=== PATIENT | female | born 1950 | race African-American/Black ===

== ENCOUNTER 2019-05-28 16:52 | Inpatient (IN) | payer OTHER ==
--- NOTE | 2019-05-28 18:14 | PDOC ---
History of Present Illness - General Chief Complaint: Wound Stated Complaint: SENT BY DOC Time Seen by Provider: 05/28/19 18:14 History Source: Patient Exam Limitations: No Limitations - History of Present Illness Initial Comments: 05/28/19 19:28 68yF w PMHx DM HTN CHF morbid obesity presenting w BLE wounds. Ongoing BLE wounds since September 2018, worsened in February. Currently has open wounds with purulent discharge on L medial lower leg. Been treating wounds w dressing changes, tylenol/ibuprofen for pain, last taken this morning. Recently completed levaquin course 2 weeks ago and started 20 lasix daily this week. Visited opal polisher yesterday, told to go to hospital for IV antibiotics. Able to ambulate with walker, normal sensation to tough. Denies fever, chest pain/ SOB. Past History - Past Medical History Allergies/Adverse Reactions: Allergies Allergy/AdvReac Type Severity Reaction Status Date / Time No Known Allergies Allergy Verified 05/28/19 17:45 - Psycho Social/Smoking Cessation Hx Smoking History: Never smoked Review of Systems - Review of Systems Constitutional: No: Chills, Fever HEENTM: No: Eye Pain, Recent change in vision, Nose Pain, Throat Pain Respiratory: No: Cough, Shortness of Breath Cardiac (ROS): No: Chest Pain, Palpitations, Syncope ABD/GI: No: Abdominal Distended, Constipated, Diarrhea, Nausea, Vomiting : No: Burning, Dysuria, Discharge, Flank Pain Musculoskeletal: No: Back Pain, Joint Pain Integumentary: Yes: Lesions (LLE). No: Bruising Neurological: No: Headache, Seizure, Tingling Psychiatric: No: Anxiety, Depression, Stressors Endocrine: No: Excessive Sweating, Flushing, Intolerance to Cold, Intolerance to Heat Hematologic/Lymphatic: No: Anemia, Blood Clots *Physical Exam - Vital Signs Last Vital Signs Temp Pulse Resp BP Pulse Ox 98.4 F 99 H 18 181/96 H 95 05/28/19 17:45 05/28/19 17:45 05/28/19 17:45 05/28/19 17:45 05/28/19 17:45 - Physical Exam General Appearance: Yes: Nourished, Appropriately Dressed, Mild Distress HEENT: positive: EOMI, JOVON, Normal Voice, Hearing Grossly Normal. negative: Scleral Icterus (R), Scleral Icterus (L), Nasal Congestion, Rhinorrhea Respiratory/Chest: positive: Lungs Clear, Normal Breath Sounds. negative: Chest Tender, Respiratory Distress, Crackles, Rales, Rhonchi, Stridor, Wheezing Cardiovascular: positive: Regular Rhythm, Regular Rate, S1, S2. negative: Edema , Murmur Vascular Pulses: Dorsalis-Pedis (R): 1+, Doralis-Pedis (L): 1+ Gastrointestinal/Abdominal: positive: Normal Bowel Sounds, Soft, Distended (w fluid wave). negative: Tender, Organomegaly, Guarding, Rebound Integumentary: positive: Swelling (+3 pitting to thighs leonides), Other (multiple large superificial draining ulcers LLE calf, tender/erythematous/warm, brown crusty thickened foul smelling dermis leonides feet up to knees) Neurologic: positive: Fully Oriented, Alert, Normal Response, Motor Strength 5/5 , Responsive. negative: Numbness, Sensory Deficit, Confused, Disoriented ED Treatment Course - LABORATORY CBC & Chemistry Diagram: 05/28/19 19:35 05/28/19 19:35 Medical Decision Making - Medical Decision Making 05/28/19 19:38 CXR pulm vascular congestion, no consolidation, cardiomegaly EKG sinus tachycardia, HR 103, QTc 458, no ST changes --- 68yF w PMHx DM HTN CHF morbid obesity presenting w 9mo BLE skin wounds Cellulitis 2/2 CHF exacerbation fluid overload (3+ BLE edema, elevated BNP 1000 , pulm congestion CXR) vs diabetes. Low concern for osteomyelitis (no bony involvement on L tib/fib XR) Given tylenol, vanc, zosyn, home 5 amlodipine for HTN (repeat 170/100). Placed on 2L NC for episode of O2sat low 90s Admit m/s hospitalist for cellulitis requiring IV antibiotics, CHF exacerbation , HTN Discharge - Discharge Information Problems reviewed: Yes Clinical Impression/Diagnosis: CHF (congestive heart failure) Qualifiers: Heart failure type: unspecified Heart failure chronicity: acute on chronic Qualified Code(s): I50.9 - Heart failure, unspecified HTN (hypertension) Qualifiers: Hypertension type: unspecified Qualified Code(s): I10 - Essential (primary) hypertension Cellulitis Qualifiers: Site of cellulitis: extremity Site of cellulitis of extremity: lower extremity Laterality: left Qualified Code(s): L03.116 - Cellulitis of left lower limb Condition: Improved - Follow up/Referral Referrals: Fish Ferrara MD [Primary Care Provider] - - Patient Discharge Instructions - Post Discharge Activity
[2019-05-28] MEDS ORDERED: VANCOMYCIN 1 GM in D5W (PRE-DOCKED) 1,000 MG/250 ML IVPB ONE (19:26)
[2019-05-28] MEDS ORDERED: PIPERACILLIN/TAZOB 4.5 GM 4.5 GM in DEXTROSE 5%-WATER 100 ML IVPB ONE (19:26)
[2019-05-28] MEDS ORDERED: ACETAMINOPHEN 1000 MG/100 ML VIAL (NON FORMULARY) IVPB ONE (19:26)
[2019-05-28 19:50] LABS: BASO % 0.3 % (0-2.0); EOS % 1.2 % (0-4.5); HEMATOCRIT 40.3 % (32.4-45.2); LYMPH % 17.7 % (8-40); MCH 28.2 pg (25.7-33.7); MCHC 32.2 g/dl (32.0-36.0); MEAN CELL VOLUME 87.7 fl (80-96); MEAN PLT VOLUME 9.4 fl (7.5-11.1); MONO % 6.5 % (3.8-10.2); NEUT % 74.3 % (42.8-82.8); PLATELET COUNT 191 K/MM3 (134-434); RDW 14.7 % (11.6-15.6); WHITE BLOOD COUNT 6.8 K/mm3 (4.0-10.0)
[2019-05-28] MEDS ORDERED: ACETAMINOPHEN INJECTION 100 ML IVPB ONE (19:50)
[2019-05-28] MEDS ORDERED: PIPERACILLIN/TAZOB 4.5 GM 4.5 GM/100 ML BAG IVPB ONE (19:50)
[2019-05-28] MEDS ORDERED: VANCOMYCIN 1 GRAM (PRE-DOCKED) 1,000 MG/250 ML BAG IVPB ONE (19:50)
[2019-05-28 20:01] LABS: INR 1.11 (0.83-1.09); PROTHROMBIN TIME (PATIENT) 13.1 SEC (9.7-13.0)
[2019-05-28 20:04] LABS: ACTIVATED PTT 37.1 SECONDS (25.2-36.5)
[2019-05-28 20:20] LABS: ALBUMIN 3.5 g/dl (3.4-5.0); BILIRUBIN,TOTAL 0.4 mg/dL (0.2-1); CALCIUM 9.1 mg/dL (8.5-10.1); CREATININE 0.9 mg/dL (0.55-1.3); N-TERMINAL BNP 1007.7 pg/ml (5-125); POTASSIUM 3.9 mmol/L (3.5-5.1); TOT PROT 7.3 g/dl (6.4-8.2)
--- NOTE | 2019-05-28 21:04 | PDOC ---
Documentation entered by Chilango Rogers SCRIBE, acting as scribe for Hiren Morgan MD. Hiren Morgan MD: This documentation has been prepared by the Ken gonzlaez Daniel, SCRIBE, under my direction and personally reviewed by me in its entirety. I confirm that the documentation accurately reflects all work, treatment, procedures, and medical decision making performed by me. Attending Attestation - Resident Resident Name: Serge Chin - ED Attending Attestation I have performed the following: I have examined & evaluated the patient, The case was reviewed & discussed with the resident, I agree w/resident's findings & plan, Exceptions are as noted - HPI HPI: 05/28/19 20:28 The patient is a 68 year old female with a past medical history of HTN, CHF, and morbid obesity here today for evaluation of bilateral lower extremity wounds. Patient states that her wounds started in 10/10 and worsened in 03/12. She reports that recently her left leg began to have purulent discharge and completed a 2 week course of levaquin. She reports going to her fish bin tender yesterday who instructed her to go to the ER for IV antibiotics. Patient denies headache, lightheadedness. Denies fever, chills. Denies chest pain, shortness of breath. Denies nausea, vomiting, diarrhea, abdominal pain. Allergies: NKA PCP: Fish Ferrara - Physicial Exam PE: 05/28/19 20:43 Vitals: Triage vital signs reviewed General Appearance: No acute distress, well nourished, well developed Head: Atraumatic Neck: Supple; No nuchal rigidity Chest Wall: Nontender Cardiac: Regular rate and rhythm, no murmurs, no rubs, no gallops Lungs: Clear to auscultation bilateral, good air movement bilaterally Abdomen: Soft, nondistended, normal bowel sounds, nontender to palpation Extremities: Full range of motion to all extremities, no cyanosis, clubbing, or edema Skin: +bilateral diabetic wounds on lower extremitites with 3+ pitting edema. + multiple draining ulcers on the posterior left calf with crusting lesions and foul smell. Psych: Normal mood, normal affect - Medical Decision Making 05/29/19 01:12 Patient sent in for admission for IV antibiotics for bilateral lower extremity cellulitis and diabetic wound ulcers Vancomycin and Zosyn ordered We will admit to medicine for further management.
--- NOTE | 2019-05-28 21:39 | PN ---
Teaching Attending Note Name of Resident: Sky Keyes ATTENDING PHYSICIAN STATEMENT I saw and evaluated the patient. I reviewed the resident's note and discussed the case with the resident. I agree with the resident's findings and plan as documented. SUBJECTIVE: Patient is a 68 year old woman with a PMH of HTN, CHF, and Morbid obesity here today for evaluation of bilateral lower extremity wounds. Patient states that her wounds started in 10/10 and worsened in 03/12. She reports that recently her left leg began to have purulent discharge and completed a 2 week course of Levaquin. She reports going to her double cut off saw operator yesterday who instructed her to go to the ER for IV antibiotics. Patient denies headache, lightheadedness. Denies fever, chills. Denies chest pain, shortness of breath. Denies nausea, vomiting, diarrhea, abdominal pain. No recent travel or sick contacts. Denies alcohol, tobacco or illicit drug use. OBJECTIVE: Alert and morbidly obese Vital Signs Period Temp Pulse Resp BP Sys/Espinal Pulse Ox Last 24 Hr 98.4 F 99-99 18-20 173-181/96-105 95-98 HEENT: No Jaundice, eye redness or discharge, PERRLA, EOMI. Normocephalic, atraumatic. External ears are normal and hearing is grossly intact. No nasal discharge. Neck: Supple, nontender. No palpable adenopathy or thyromegaly. No JVD Chest: Good effort. Clear to auscultation and percussion. Heart: Regular. No S3, rub or murmur Abdomen: Not distended, soft, possible ascites, nontender and no HSM. No rebound or guarding. Normal bowel sounds. Ext: Peripheral pulses intact. 3+ leg edema. Bilateral multiple lower extremity wounds with foul smelling drainage with areas of erythema and crusting lesions. Skin: Warm and dry. No petechiae, rash or ecchymosis. Neuro: Alert. Oriented x3. CN 2-12 grossly intact. Sensation grossly intact in all four extremities and DTR are symmetric. Psych: Appropriate mood and affect. Good insight. Abnormal Lab Results 05/28/19 05/28/19 19:35 19:35 PT with INR 13.10 H INR 1.11 H PTT (Actin FS) 37.1 H Carbon Dioxide 35 H Anion Gap 3 L Random Glucose 193 H Alkaline Phosphatase 127 H B-Natriuretic Peptide 1007.7 H Current Medications Generic Name Dose Route Start Last Admin Trade Name Andrea PRN Reason Stop Dose Admin Furosemide 40 mg 05/29/19 00:15 Lasix Injection - IVPUSH DAILY [facility] Heparin Sodium (Porcine) 5,000 unit 05/29/19 06:00 Heparin - SQ TID [facility] Insulin Aspart 1 vial 05/29/19 07:00 Novolog Vial Sliding Scale - SQ ACHS [facility] Protocol ASSESSMENT AND PLAN: 1. Infected leg ulcers and Cellulitis - Being treated with IV vancomycin and zosyn. Will provide daily wound care, elevate legs when supine, get abdominal sonogram and leg doppler. EKG shows sinus tachcardia, PACs and LAE. CXR shows cardiomegaly, elevated right hemidiaphragm, blunted left costophrenic angle and increased interstitial markings. Will treat with IV lasix, restrict dietary salt intake, get daily standing weight, ECHO and consult Cardiology, ID and Podiatry. Will check HbA1c, monitor glucose qid and implement sliding scale insulin coverage. Will continue comprehensive care for all of patients comorbid conditions. 2. Morbid obesity Counseled on the risks associated with morbid obesity. Will provide patient all the necessary assistance, counseling and positive reinforcement to facilitate weight loss. Consult transportation superintendent. 3. Uncontrolled hypertension - Ensure that BP is being measured with right- sized cuff. Restart suitable outpatient antihypertensive drugs when clinically appropriate. Revise regimen to ensure [id number] excellent BP control and primary substance abuse counselor patient on the injurious effects of uncontrolled hypertension. Nonpharmacologic measures to control hypertension like weight loss, salt restriction and exercise discussed. Importance of adherence to treatment regimen and attainment of normotension emphasized. 4. DVT prophylaxis - Lovenox 40 mg SQ q 12 5. Advance directives - Full code
[2019-05-28] MEDS ORDERED: amLODIPine BESYLATE 5 MG TABLET (FP) PO ONE (22:12)
[2019-05-28] MEDS ORDERED: amLODIPine BESYLATE 5 MG TABLET (FP) ONE (22:16)
[2019-05-29] MEDS: ACETAMINOPHEN 325 MG TABLET (FP) PO PRN ×4 (01:16→21:43)
[2019-05-29] MEDS: FUROSEMIDE 40 MG/4 ML INJECTABLE VIAL IVPUSH SCH ×2 (01:16→09:17)
--- NOTE | 2019-05-29 02:33 | HP ---
CHIEF COMPLAINT: lower extremity pain and swelling PCP: Dr. Ferrara HISTORY OF PRESENT ILLNESS: Alysha Wagner is a 68 year old female with a past medical history of diabetes, hypertension, CHF, morbid obesity who presents with bilateral lower extremity wounds. The patient states that one year prior she was seen at [facility] for symptoms of shortness of breath, leg swelling, and cough and was given a diagnosis of CHF. She states her leg swelling has gotten worse since that time and dramatically started to get worse since February. She states that she did not follow up with a physician until recently and was not taking medications regularly until several days prior when she saw Dr. Ferrara for the first time in a long period. The patient states that her wounds on her legs are not followed up regularly by a physician or generator operator straight bevel gear. She states that she has had a several month history of a dry cough, orthopnea, dyspnea on exertion, and worsening leg swelling and pain. She endorses leg burning, pain, and difficulty with ambulation. Additionally, she states that her abomen has increased in size over a "long period of time" and she recently had an ultrasound of the abdomen for which she was told she had "ascites". She denies chest pain, abdominal pain , nausea, vomiting, constipation, diarrhea, headaches, numbness, tingling, dizziness, lightheadedness, fevers, chills. ER course was notable for: (1) HTN SBP 170-180s, 2L NC 98% (2) BNP >100 (3) Tib/fib x-ray with no noted bone involvement of infection, CXR with poor inspiratory effort, no consildation noted (4) given Tylenol, Vanco, Zosyn, amlodipine Recent Travel: denies PAST MEDICAL HISTORY: as above PAST SURGICAL HISTORY: denies Social History: Smoking: denies every smoking Alcohol: denies Drugs: denies Former labor and delivery nurse. Allergies No Known Allergies Allergy (Verified 05/28/19 17:45) HOME MEDICATIONS: REVIEW OF SYSTEMS CONSTITUTIONAL: Absent: fever, chills, diaphoresis, generalized weakness, malaise, HEENT: Absent: rhinorrhea, nasal congestion, throat pain, throat swelling, difficulty swallowing, visual changes CARDIOVASCULAR: peripheral edema Absent: chest pain, syncope, palpitations, irregular heart rate, lightheadedness RESPIRATORY: shortness of breath, dyspnea with exertion, orthopnea, cough Absent: wheezing, GASTROINTESTINAL: abdominal distension Absent: abdominal pain, nausea, vomiting, diarrhea, constipation, GENITOURINARY: Absent: dysuria, frequency, urgency, hesitancy, hematuria, MUSCULOSKELETAL: extremity pain Absent: myalgia, arthralgia, joint swelling, back pain, neck pain SKIN: skin dryness, weeping, ulceration Absent: itching, pallor HEMATOLOGIC/IMMUNOLOGIC: Absent: easy bleeding, easy bruising, lymphadenopathy, ENDOCRINE: Absent: unexplained weight gain, unexplained weight loss, heat intolerance, cold intolerance NEUROLOGIC: Absent: headache, focal weakness or paresthesias, dizziness, unsteady gait, seizure, mental status changes PSYCHIATRIC: Absent: anxiety, depression, suicidal or homicidal ideation, hallucinations. PHYSICAL EXAMINATION Vital Signs - 24 hr 05/28/19 05/28/19 05/29/19 17:45 22:14 00:01 Temperature 98.4 F Pulse Rate 99 H Pulse Rate [ 99 H Apical] Respiratory 18 20 Rate Blood Pressure 181/96 H Blood Pressure 173/105 H [Left Arm] O2 Sat by Pulse 95 98 98 Oximetry (%) GENERAL: Awake, alert, and fully oriented, in no acute distress. Pleasant. HEAD: Normal with no signs of trauma. EYES: Pupils equal, round and reactive to light, extraocular movements intact, sclera anicteric, conjunctiva clear. EARS, NOSE, THROAT: Oropharynx clear without exudates. Moist mucous membranes. NECK: Normal range of motion, supple without lymphadenopathy, JVD. LUNGS: Diminished significantly bilaterally. No wheezes, and no crackles. No accessory muscle use. HEART: Occasionally heard extra beats, otherwise regular rate and rhythm, normal S1 and S2 with systolic ejection murmur. ABDOMEN: Nontender, grossly distended, normoactive bowel sounds, no guarding, no rebound, no masses. Significant ascites with fluid wave. MUSCULOSKELETAL: Decreased range of motion on legs due to pain. LOWER EXTREMITIES: Poorly palpated pulses. Significant brown discoloration of skin up to ankles. Weeping of the skin. L leg ulcer on the medial trevino and calf. Warm, tender to palpation. 3+ edema up to the knees. NEUROLOGICAL: Cranial nerves II-XII intact. 5/5 muscle strength bilaterally on upper extremities. 4/5 on the lower extremities, limited due to pain. PSYCHIATRIC: Cooperative. Good eye contact. Appropriate mood and affect. SKIN: Significant brown discoloration of skin up to ankles. Weeping of the skin. L leg ulcer on the medial trevino and calf. Laboratory Results - last 24 hr 05/28/19 05/28/19 05/28/19 19:35 19:35 19:35 WBC 6.8 RBC 4.60 Hgb 13.0 Hct 40.3 MCV 87.7 MCH 28.2 MCHC 32.2 RDW 14.7 Plt Count 191 MPV 9.4 Absolute Neuts (auto) 5.1 Neutrophils % 74.3 Lymphocytes % 17.7 Monocytes % 6.5 Eosinophils % 1.2 Basophils % 0.3 Nucleated RBC % 0 PT with INR INR PTT (Actin FS) Sodium 142 Potassium 3.9 Chloride 104 Carbon Dioxide 35 H Anion Gap 3 L BUN 18.0 Creatinine 0.9 Est GFR (CKD-EPI)AfAm 76.68 Est GFR (CKD-EPI)NonAf 66.16 Random Glucose 193 H Calcium 9.1 Total Bilirubin 0.4 AST 16 ALT 23 Alkaline Phosphatase 127 H B-Natriuretic Peptide 1007.7 H Total Protein 7.3 Albumin 3.5 Blood Type O POSITIVE Antibody Screen Negative 05/28/19 19:35 WBC RBC Hgb Hct MCV MCH MCHC RDW Plt Count MPV Absolute Neuts (auto) Neutrophils % Lymphocytes % Monocytes % Eosinophils % Basophils % Nucleated RBC % PT with INR 13.10 H INR 1.11 H PTT (Actin FS) 37.1 H Sodium Potassium Chloride Carbon Dioxide Anion Gap BUN Creatinine Est GFR (CKD-EPI)AfAm Est GFR (CKD-EPI)NonAf Random Glucose Calcium Total Bilirubin AST ALT Alkaline Phosphatase B-Natriuretic Peptide Total Protein Albumin Blood Type Antibody Screen ASSESSMENT/PLAN: Alysha Wagner is a 68 year old female with a past medical history of diabetes, hypertension, CHF, morbid obesity admitted for lower extremity cellulitis likely secondary to diabetes and lower extremity edema from CHF vs liver disease. Lower Extremity Wounds - extensive untreated wounds and chronic changes likely from DM, CHF, venous stasis - podiatry consulted - wound care consulted - await dressing change instructions from wound care - ID consulted - continue Vancomycin and Zosyn - Blood and wound cx pending - tib/fib x-rays with no indication of bony involvement - patient afebrile with no WBC, low likelihood of osteo, can consider MRI if condition worsens - Tylenol for pain Edema/Ascites - unclear history of CHF - echo ordered - abd U/s - Hep panel - duplex ordered - keep feet elevated at night - IV Lasix 40mg daily for diuresis - salt and fluid restriction - daily weight - strict I+Os - cardiology consulted DM - ISS - BGM - A1c HTN - on amlodipine at home, may not be best option in setting of edema - can consider change of BP medication Morbid Obesity - counseled on weight lost - dietary consult DVT PPx - Lovenox 40mg subq daily FEN - no standing fluids, caution with fluids in setting of edema - continue to monitor electrolytes and replete as necessary - sodium/diabetic diet Dispo - admit to Med-surg Family Medical History Family Hx Diabetes: Father Problem List - Problem (1) CHF (congestive heart failure) Code(s): I50.9 - HEART FAILURE, UNSPECIFIED Qualifiers: Heart failure type: unspecified Heart failure chronicity: acute on chronic Qualified Code(s): I50.9 - Heart failure, unspecified (2) Cellulitis Code(s): L03.90 - CELLULITIS, UNSPECIFIED Qualifiers: Site of cellulitis: extremity Site of cellulitis of extremity: lower extremity Laterality: left Qualified Code(s): L03.116 - Cellulitis of left lower limb (3) HTN (hypertension) Code(s): I10 - ESSENTIAL (PRIMARY) HYPERTENSION Qualifiers: Hypertension type: unspecified Qualified Code(s): I10 - Essential (primary ) hypertension Visit type - Emergency Visit Emergency Visit: Yes ED Registration Date: 05/28/19 Care time: The patient presented to the Emergency Department on the above date and was hospitalized for further evaluation of their emergent condition. - New Patient This patient is new to me today: Yes Date on this admission: 05/29/19 - Critical Care Critical Care patient: No
[2019-05-29 03:27] VITALS: BMI 66.4
[2019-05-29] MEDS ORDERED: DEXTROSE 5%-WATER - 50 ML IVPB ONE ×3 (03:52→17:44)
[2019-05-29] MEDS ORDERED: PIPERACILLIN/TAZOBACTAM 3.375 GM VIAL IVPB ONE ×3 (03:52→17:43)
[2019-05-29] MEDS: PIPERACILLIN/TAZOB 3.375 GM 3.375 GM in DEXTROSE 5%-WATER - 50 ML IVPB SCH ×3 (04:08→18:13)
[2019-05-29] MEDS: INSULIN SLIDING SCALE (NOVOLOG) 1 VIAL SQ SCH ×4 (06:47→21:52)
[2019-05-29] MEDS: HEPARIN NA (PORCINE) 5,000 UNITS/ML 1ML VIAL SQ SCH ×3 (06:47→21:47)
[2019-05-29] MEDS ORDERED: VANCOMYCIN 1 GRAM (PRE-DOCKED) 1,000 MG/250 ML BAG IVPB ONE (09:00)
[2019-05-29] MEDS ORDERED: VANCOMYCIN 1 GM in D5W (PRE-DOCKED) 1,000 MG/250 ML IVPB ONE (09:00)
[2019-05-29 09:28] LABS: BASO % 0.2 % (0-2.0); EOS % 1.8 % (0-4.5); HEMATOCRIT 39.4 % (32.4-45.2); HEMOGLOBIN 12.9 GM/dL (10.7-15.3); LYMPH % 21.8 % (8-40); MCH 28.4 pg (25.7-33.7); MCHC 32.7 g/dl (32.0-36.0); NEUT % 68.2 % (42.8-82.8); PLATELET COUNT 168 K/MM3 (134-434); RBC 4.53 M/mm3 (3.60-5.2); RDW 14.7 % (11.6-15.6)
[2019-05-29 10:01] LABS: ALBUMIN 3.5 g/dl (3.4-5.0); BILIRUBIN,TOTAL 0.5 mg/dL (0.2-1); BLOOD UREA NITROGEN 14.5 mg/dL (7-18); CALCIUM 8.9 mg/dL (8.5-10.1); MAGNESIUM 1.9 mg/dL (1.8-2.4); PHOSPHOROUS 3.6 mg/dL (2.5-4.9); POTASSIUM 3.6 mmol/L (3.5-5.1); TOT PROT 7.2 g/dl (6.4-8.2)
--- NOTE | 2019-05-29 10:04 | CON.CARD ---
Consult Consult Specialty:: cardio - History of Present Illness Chief Complaint: leg swelling, sob History of Present Illness: 68 year old female here with leg swelling and wounds/pain reports being treated for chf in [facility] about one year ago--says she was told echo then was normal. sent home on few meds including diuretic--never took them. no signif cardio or pmd f/u since then. leg swelling has dramatically worsened since February, with assctd pain recently saw Dr. Carcamo for the first time in a long time, ? abd sono showed "ascites". admits to ongoing dry cough, orthopnea, dyspnea on exertion, for several weeks since here she is urinating copiously after iv lasix, and notes sob is slightly improving already. 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 denies prior stress testing or h/o CAD PMH: HTN DM - Past Medical History ...: No - Alcohol/Substance Use Hx Alcohol Use: No - Smoking History Smoking history: Never smoked Home Medications - Allergies Allergies/Adverse Reactions: Allergies Allergy/AdvReac Type Severity Reaction Status Date / Time No Known Allergies Allergy Verified 05/28/19 17:45 - Home Medications Home Medications: Ambulatory Orders Amlodipine Besylate [Norvasc -] 5 mg PO DAILY MDD 5 05/29/19 Furosemide [Lasix] 20 mg PO DAILY 05/29/19 Glipizide 10 mg PO BID 05/29/19 Family Medical History Family History: Denies (no known CMP) Review of Systems - Review of Systems Constitutional: denies: Chills, Fever Eyes: denies: Eye Pain HENT: denies: Nasal Congestion Neck: denies: Stiffness Cardiovascular: denies: Palpitations Respiratory: reports: Orthopnea. denies: Hemoptysis Gastrointestinal: denies: Diarrhea, Rectal Bleeding Genitourinary: denies: Burning, Hematuria Musculoskeletal: denies: Muscle Pain Integumentary: denies: Rash Neurological: denies: Numbness, Seizure, Syncope Endocrine: denies: Excessive Sweating Hematology/Lymphatic: denies: Excessive Bleeding Vital Signs: Vital Signs Temperature 99.1 F 05/29/19 03:09 Pulse Rate 106 H 05/29/19 03:09 Respiratory Rate 18 05/29/19 03:09 Blood Pressure 145/79 05/29/19 03:09 O2 Sat by Pulse Oximetry (%) 91 L 05/29/19 03:09 Constitutional: Yes: Well Nourished, No Distress, Obese Eyes: No: Sclera Icterus HENT: No: Nasal Congestion Neck: No: Decreased ROM Respiratory: Yes: CTA Bilaterally. No: Accessory Muscle Use, Rales, Wheezes Gastrointestinal: Yes: Normal Bowel Sounds. No: Distention, Hepatomegaly, Palpable Mass, Tenderness Cardiovascular: Yes: Regular Rate and Rhythm JVD: No Carotid Bruit: No PMI: Non-Displaced Heart Sounds: Yes: S1, S2. No: Gallop Murmur: No: Systolic Murmur, Diastolic Murmur Musculoskeletal: Yes: Other (No kyphosis) Extremities: No: Cool, Cyanosis Edema: Yes (mixed pitting/nonpitting ) Peripheral Pulses: 2+ Left Carotid, 2+ Right Carotid, 2+ Left Doralis Pedis, 2+ Right Dorsalis Pedis Integumentary: No: Jaundice Neurological: Yes: Alert, Oriented (x3) Psychiatric: No: Agitated - Other Data Labs, Other Data: CBC, BMP 05/29/19 07:54 INR, PTT INR 1.11 (0.83-1.09) H 05/28/19 19:35 Troponin, BNP 05/28/19 19:35 B-Natriuretic Peptide 1007.7 H Troponin, BNP 05/28/19 19:35 B-Natriuretic Peptide 1007.7 H Assessment/Plan ECG: NSR, ? biatrial enlargement, no Q's or ST-Ts CXR: prominent hilar markings, no congestion/effusion/infiltrate seen leg swelling, sob, CHF: -details of prior echo, history from outside hosp unknown -BNP 1K (no priors) -echo -on lasix 20 qd at home (taking?)--started 40 IV qd here, notes good UOP response--continue same HTN: -initially elevated -presently well controlled -same meds (home amlodipine) DM: -A1c 7s -per hospitalist leg wounds: -per hospitalist team
[2019-05-29] MEDS ORDERED: INSULIN (NOVOLOG) ASPART 100 UNITS/ML 10ML VIAL ONE ×2 (11:58→18:04)
--- NOTE | 2019-05-29 12:37 | PN ---
Progress Note (short form) - Note Progress Note: VA[facility] Surgery Pt seen and examined. Bl lower ext lymphedema with weeping wounds. Wounds are clean and open. Will start alginate with EDWIGE wraps for compression. Pt should follow up in wound care clinic and we can get pt a lymphedema pump for home use. Please make pt wound care appt upon DC -- [phone] Venkat Gonzalez DO
--- NOTE | 2019-05-29 17:02 | EKG ---
Test Reason : Blood Pressure : / mmHG Vent. Rate : 103 BPM Atrial Rate : 103 BPM P-R Int : 132 ms QRS Dur : 082 ms QT Int : 350 ms P-R-T Axes : 054 009 067 degrees QTc Int : 458 ms SINUS TACHYCARDIA WITH PREMATURE ATRIAL COMPLEXES POSSIBLE LEFT ATRIAL ENLARGEMENT BORDERLINE ECG NO PREVIOUS ECGS AVAILABLE Confirmed by ROSE WALLACE, SAVANNAH ([id number]) on 05/29/2019 5:02:08 PM Referred By: Confirmed By:SAVANNAH ROSE MD
--- NOTE | 2019-05-29 19:46 | PN ---
Progress Note (short form) - Note Progress Note: ID CONSULT DICTATED INFECTED CHRONIC LE ULCER CELLULITIS LE CHRONIC LYMPHEDEMA MORBID OBESITY AWAIT C/S EMPIRIC VANCOMYCIN/ ZOSYN WOUND CARE EVALUATION APPRECIATED
--- NOTE | 2019-05-29 20:30 | PN ---
Progress Note (short form) - Note Progress Note: SUBJECTIVE: Feels okay, no SOB at rest. No fever/chills. OBJECTIVE: Afebrile, Hemodynamically Stable. Last Vital Signs Temp Pulse Resp BP Pulse Ox 98.6 F 118 H 20 148/86 92 L 05/29/19 15:49 05/29/19 15:49 05/29/19 15:49 05/29/19 15:49 05/29/19 09:00 HEENT - Atraumatic, Normocephalic. Heart - S1, S2, RRR Lungs - distant breath sounds due to body habitus Abdomen - High BMI, soft, non-tender. Bowel Sounds normal. Extremities - Chronic edema, venous stasis with ulcers, currently dressed. Neuro - AAO x 3. Tone/Power normal. Laboratory Results - last 24 hr 05/28/19 05/28/19 05/29/19 07:54 19:35 06:09 WBC RBC Hgb Hct MCV MCH MCHC RDW Plt Count MPV Absolute Neuts (auto) Neutrophils % Lymphocytes % Monocytes % Eosinophils % Basophils % Nucleated RBC % Sodium Potassium Chloride Carbon Dioxide Anion Gap BUN Creatinine Est GFR (CKD-EPI)AfAm Est GFR (CKD-EPI)NonAf POC Glucometer 144 Random Glucose Hemoglobin A1c % Calcium Phosphorus Magnesium Total Bilirubin AST ALT Alkaline Phosphatase Total Protein Albumin Blood Type O POSITIVE O POSITIVE Antibody Screen Negative 05/29/19 05/29/19 05/29/19 07:54 07:54 07:54 WBC 7.0 RBC 4.53 Hgb 12.9 Hct 39.4 MCV 87.0 MCH 28.4 MCHC 32.7 RDW 14.7 Plt Count 168 MPV 10.0 Absolute Neuts (auto) 4.8 Neutrophils % 68.2 Lymphocytes % 21.8 D Monocytes % 8.0 Eosinophils % 1.8 Basophils % 0.2 Nucleated RBC % 0 Sodium 143 Potassium 3.6 Chloride 102 Carbon Dioxide 33 H Anion Gap 7 L BUN 14.5 Creatinine 1.0 Est GFR (CKD-EPI)AfAm 67.51 Est GFR (CKD-EPI)NonAf 58.25 POC Glucometer Random Glucose 139 H Hemoglobin A1c % 7.2 H Calcium 8.9 Phosphorus 3.6 Magnesium 1.9 Total Bilirubin 0.5 AST 19 ALT 21 Alkaline Phosphatase 121 H Total Protein 7.2 Albumin 3.5 Blood Type Antibody Screen 05/29/19 05/29/19 11:08 18:11 WBC RBC Hgb Hct MCV MCH MCHC RDW Plt Count MPV Absolute Neuts (auto) Neutrophils % Lymphocytes % Monocytes % Eosinophils % Basophils % Nucleated RBC % Sodium Potassium Chloride Carbon Dioxide Anion Gap BUN Creatinine Est GFR (CKD-EPI)AfAm Est GFR (CKD-EPI)NonAf POC Glucometer 201 183 Random Glucose Hemoglobin A1c % Calcium Phosphorus Magnesium Total Bilirubin AST ALT Alkaline Phosphatase Total Protein Albumin Blood Type Antibody Screen Current Medications Generic Name Dose Route Start Last Admin Trade Name Freq PRN Reason Stop Dose Admin Acetaminophen 650 mg 05/29/19 01:10 05/29/19 16:03 Tylenol - PO 650 mg Q6H PRN Administration Fever Or Pain Furosemide 40 mg 05/29/19 00:15 05/29/19 09:17 Lasix Injection - IVPUSH 40 mg DAILY [facility]ANTE Administration Heparin Sodium (Porcine) 5,000 unit 05/29/19 06:00 05/29/19 14:00 Heparin - SQ 5,000 unit TID [facility]ANTE Administration Piperacillin Sod/Tazobactam 50 mls @ 100 mls/hr 05/29/19 03:00 Sod 3.375 gm/ Dextrose IVPB Q8H-IV CHANTE Protocol Insulin Aspart 1 vial 05/29/19 07:00 05/29/19 18:12 Novolog Vial Sliding Scale - SQ Not Given ACHS CHANTE Protocol Home Medications Medication Instructions Recorded Amlodipine Besylate [Norvasc -] 5 mg PO DAILY MDD 5 05/29/19 Furosemide [Lasix] 20 mg PO DAILY 05/29/19 Glipizide 10 mg PO BID 05/29/19 ASSESSMENT/PLAN: 68 year old female with history DM 2, HTN, morbid obesity, presents with worsening bilateral lower extremity edema/wounds, SOB on exertion, orthopnea. 1. Chronic Venous Stasis with Infected Ulcers IV Lasix Vascular/Wound Care consulted. Tib/Fib x-rays with no indication of bony involvement LE Duplex oredered. Continue Vancomycin and Zosyn. ID consulted. Wound Cx pending. Echo ordered to exclude CHF Abdo US to exclude Ascites. I/Os, Daily weights, Fluid/Salt restriction 2. DM 2 - Maintain on Novolog sliding scale. Glipizide held. 3. HTN - Continue Amlodipine. DVT Px - Heparin SQ Visit type - Emergency Visit Emergency Visit: Yes ED Registration Date: 05/28/19 Care time: The patient presented to the Emergency Department on the above date and was hospitalized for further evaluation of their emergent condition. - New Patient This patient is new to me today: Yes Date on this admission: 05/29/19 - Critical Care Critical Care patient: No - Discharge Referral Referred to [facility] No
[2019-05-29] MEDS: amLODIPine BESYLATE 5 MG TABLET (FP) PO SCH (21:44)
[2019-05-30] MEDS ORDERED: PT OWN MED DRAWER 7, Y5N ONE (00:38)
[2019-05-30] MEDS: VANCOMYCIN 1 GRAM (PRE-DOCKED) 1,000 MG/250 ML BAG IVPB SCH ×2 (00:43→13:55)
[2019-05-30] MEDS ORDERED: PIPERACILLIN/TAZOBACTAM 3.375 GM VIAL IVPB ONE ×3 (01:22→16:35)
[2019-05-30] MEDS ORDERED: DEXTROSE 5%-WATER - 50 ML IVPB ONE ×3 (01:23→16:36)
[2019-05-30] MEDS: PIPERACILLIN/TAZOB 3.375 GM 3.375 GM in DEXTROSE 5%-WATER - 50 ML IVPB SCH ×3 (02:15→17:06)
[2019-05-30] MEDS: ACETAMINOPHEN 325 MG TABLET (FP) PO PRN ×3 (05:51→18:08)
[2019-05-30] MEDS: HEPARIN NA (PORCINE) 5,000 UNITS/ML 1ML VIAL SQ SCH ×3 (05:52→21:23)
[2019-05-30] MEDS: INSULIN SLIDING SCALE (NOVOLOG) 1 VIAL SQ SCH ×4 (06:00→21:23)
--- NOTE | 2019-05-30 07:51 | CONSULT ---
Consult - text type - Consultation Consultation Note: PODIATRY: Alysha Wagner is a 68 year old female with a past medical history of diabetes, hypertension, CHF, morbid obesity who presents with bilateral lower extremity wounds. States has had continuing leg swelling over the course of the last few months. Not followed by anyone for the wounds that have developed either. [facility] wounds are very painful as well. O: Vascular pulses non palp due to sever overlyinge michael, pitting edema noted throughou b/l lower extremities; mild serous drainage, wound clean, minimal surrounding polo wound erythema, POP noted b/l A: b/l Venous stasis; lymphedema P: Evaluated and reviewed agree with Dr. chavarria findings to f/u in wound care center upon d/c. no acute intervention at this time.
[2019-05-30 08:49] LABS: BLOOD UREA NITROGEN 15.3 mg/dL (7-18); CALCIUM 8.9 mg/dL (8.5-10.1); CREATININE 0.9 mg/dL (0.55-1.3); POTASSIUM 3.9 mmol/L (3.5-5.1)
[2019-05-30] MEDS: FUROSEMIDE 40 MG/4 ML INJECTABLE VIAL IVPUSH SCH (09:23)
[2019-05-30] MEDS: amLODIPine BESYLATE 5 MG TABLET (FP) PO SCH (09:23)
--- NOTE | 2019-05-30 11:41 | PN ---
Progress Note, Physician Chief Complaint: leg swelling, pain History of Present Illness: not sob (in bed) leg swelling feels improved salazar with large volume uop response to diuretics no cp, palp, presyncope - Current Medication List Current Medications: Active Medications Acetaminophen (Tylenol -) 650 mg PO Q6H PRN PRN Reason: Fever Or Pain Last Admin: 05/30/19 05:51 Dose: 650 mg Amlodipine Besylate (Norvasc -) 5 mg PO DAILY [facility] Last Admin: 05/30/19 09:23 Dose: 5 mg Furosemide (Lasix Injection -) 40 mg IVPUSH DAILY [facility] Last Admin: 05/30/19 09:23 Dose: 40 mg Heparin Sodium (Porcine) (Heparin -) 5,000 unit SQ TID [facility] Last Admin: 05/30/19 05:52 Dose: 5,000 unit Piperacillin Sod/Tazobactam (Sod 3.375 gm/ Dextrose) 50 mls @ 100 mls/hr IVPB Q8H-IV [facility]ANTE; Protocol Last Admin: 05/30/19 09:24 Dose: 100 mls/hr Vancomycin HCl (Vancomycin (Pre-Docked)) 1,000 mg in 250 mls @ 166.667 mls/hr IVPB Q12H [facility]ANTE; Protocol Last Admin: 05/30/19 00:43 Dose: 166.667 mls/hr Insulin Aspart (Novolog Vial Sliding Scale -) 1 vial SQ ACHS CHANTE; Protocol Last Admin: 05/30/19 11:38 Dose: Not Given - Objective Vital Signs: Vital Signs Temperature 98.2 F 05/30/19 09:00 Pulse Rate 85 05/30/19 09:00 Respiratory Rate 18 05/30/19 09:00 Blood Pressure 137/70 05/30/19 09:00 O2 Sat by Pulse Oximetry (%) 94 L 05/30/19 09:00 Constitutional: Yes: Well Nourished, No Distress, Obese Cardiovascular: Yes: Regular Rate and Rhythm, S1, S2. No: JVD (++ tds exam), Gallop, Murmur Respiratory: Yes: Regular, CTA Bilaterally. No: Accessory Muscle Use, Rales, Wheezes Extremities: No: Cold Edema: Yes Neurological: Yes: Alert, Oriented Psychiatric: No: Agitated Labs: CBC, BMP 05/29/19 07:54 05/30/19 06:58 INR, PTT INR 1.11 (0.83-1.09) H 05/28/19 19:35 Assessment/Plan ECG: NSR, ? biatrial enlargement, no Q's or ST-Ts CXR: prominent hilar markings, no congestion/effusion/infiltrate seen leg swelling, sob, CHF: -details of prior echo, history from outside hosp unknown -BNP 1K (no priors) -echo -on lasix 20 qd at home (taking?)--started 40 IV qd here, notes good UOP response, subjective improvement in edema (TDS habitus) -same lasix -bp control HTN: -continues to fluctuate -cont amlodipine, add valsartan DM: -A1c 7s -per hospitalist leg wounds: -per hospitalist team
--- NOTE | 2019-05-30 13:10 | CONS ---
INFECTIOUS DISEASE CONSULTATION DATE OF CONSULTATION: DATE OF DICTATION: 05/29/2019 HISTORY: The patient is a 68-year-old morbidly obese female with a history of bilateral chronic lower extremity lymphedema evaluated for infected leg wounds. Patient reports ulcerations have been present on her lower extremities dating back to September of last year. It became markedly worse in February of last year. She recently completely a 2-week course of Levaquin after she was noted to have infection of the leg ulcers. Since then, she reports increased purulent drainage and foul smell. She was evaluated in the emergency room where she was empirically treated with vancomycin and Zosyn. She denies any traumatic injury. No animal bites or scratches. She denies any recent hospitalizations. Denies history of multidrug-resistant organisms. PAST MEDICAL HISTORY: Positive for morbid obesity, chronic lower extremity lymphedema, hypertension, congestive heart failure. ALLERGIES: No known allergies. MEDICATIONS: Include Tylenol, Norvasc, Lasix, vancomycin, Zosyn. SOCIAL HISTORY: She resides in the community. She is a nonsmoker, nondrinker. SYSTEMS REVIEW: Neurologic: No loss of consciousness, seizure activity, focal weakness. Cardiac: Negative chest pain or palpitations. Respiratory: Negative cough or sputum production. Gastrointestinal: Negative vomiting or diarrhea. Genitourinary: Negative for urinary tract infection. LABORATORY DATA: White count 7.0, hematocrit 39.4, platelets 168, creatinine 1.0. X-ray of the lower extremity, no evidence of bone disease. PHYSICAL EXAMINATION: General: She is seated in bed. Morbidly obese. Vital Signs: Temperature 97.9, blood pressure 118/94, pulse 125 regular, respirations 18 per minute. HEENT: Sclerae anicteric. Heart: Sounds S1, S2. Lungs: Clear. Abdomen: Obese, soft, nontender. Extremities: Bilateral lower extremity lymphadenopathy. Dry ulcers present on the right lower extremity. There is a large ulceration present on the left lower extremity below the ankle with fibrinous base and malodorous drainage. IMPRESSION: 1. Infected, chronic lower extremity ulcer. 2. Cellulitis lower extremities. 3. Chronic lymphedema. 4. Morbid obesity. PLAN: Await cultures. Continue empiric vancomycin and Zosyn. Wound care evaluation and follow up. Thank you for the kind referral. TORREY VILLANUEVA M.D. [id number]
--- NOTE | 2019-05-30 13:26 | PN ---
Physical Exam: SUBJECTIVE: Patient seen and examined at the bedside. Stated that she feels better. Noted that her legs continue to have pain and have a burning like sensation. Noted her shortness of breath improved. Denied cp, abd pain, n/v/c/d , fevers, chills, headaches, dizziness, lightheadedness. OBJECTIVE: Vital Signs Period Temp Pulse Resp BP Sys/Espinal Pulse Ox Last 24 Hr 97.8 F-98.6 F 85-118 18-22 137-162/70-102 92-94 GENERAL: Awake, alert, and fully oriented, in no acute distress. Pleasant. HEAD: Normal with no signs of trauma. EYES: Pupils equal, round and reactive to light, extraocular movements intact. EARS, NOSE, THROAT: Oropharynx clear without exudates. Moist mucous membranes. NECK: Normal range of motion, supple without lymphadenopathy, JVD. LUNGS: Diminished significantly bilaterally. No wheezes, and no crackles. No accessory muscle use. HEART: Occasionally heard extra beats, otherwise regular rate and rhythm, normal S1 and S2 with systolic ejection murmur. ABDOMEN: Nontender, distended and obese, normoactive bowel sounds, no guarding, no rebound, no masses. MUSCULOSKELETAL: Decreased range of motion on legs due to pain. LOWER EXTREMITIES: Poorly palpated pulses. Significant brown discoloration of skin up to ankles. Weeping of the skin. L leg ulcer on the medial trevino and calf. Warm, tender to palpation. 3+ edema up to the knees. NEUROLOGICAL: Cranial nerves II-XII intact. 5/5 muscle strength bilaterally on upper extremities. 4/5 on the lower extremities, limited due to pain. PSYCHIATRIC: Cooperative. Good eye contact. Appropriate mood and affect. SKIN: Significant brown discoloration of skin up to ankles. Weeping of the skin. L leg ulcer on the medial trevino and calf. Laboratory Results - last 24 hr 05/29/19 05/29/19 05/30/19 18:11 21:50 05:59 Sodium Potassium Chloride Carbon Dioxide Anion Gap BUN Creatinine Est GFR (CKD-EPI)AfAm Est GFR (CKD-EPI)NonAf POC Glucometer 183 188 154 Random Glucose Calcium 05/30/19 05/30/19 06:58 11:37 Sodium 141 Potassium 3.9 Chloride 101 Carbon Dioxide 35 H Anion Gap 5 L BUN 15.3 Creatinine 0.9 Est GFR (CKD-EPI)AfAm 76.68 Est GFR (CKD-EPI)NonAf 66.16 POC Glucometer 152 Random Glucose 137 H Calcium 8.9 Active Medications Generic Name Dose Route Start Last Admin Trade Name Freq PRN Reason Stop Dose Admin Acetaminophen 650 mg 05/29/19 01:10 05/30/19 12:09 Tylenol - PO 650 mg Q6H PRN Administration Fever Or Pain Amlodipine Besylate 5 mg 05/29/19 20:45 05/30/19 09:23 Norvasc - PO 5 mg DAILY [facility]ANTE Administration Furosemide 40 mg 05/29/19 00:15 05/30/19 09:23 Lasix Injection - IVPUSH 40 mg DAILY [facility]TE Administration Heparin Sodium (Porcine) 5,000 unit 05/29/19 06:00 05/30/19 05:52 Heparin - SQ 5,000 unit TID CHANTE Administration Piperacillin Sod/Tazobactam 50 mls @ 100 mls/hr 05/30/19 02:00 05/30/19 09:24 Sod 3.375 gm/ Dextrose IVPB 100 mls/hr Q8H-IV CHANTE Administration Protocol Vancomycin HCl 1,000 mg in 250 mls @ 166.667 mls/hr 05/30/19 01:00 05/30/19 00:43 Vancomycin (Pre-Docked) IVPB 166.667 mls/hr Q12H CHANTE Administration Protocol Insulin Aspart 1 vial 05/29/19 07:00 05/30/19 11:38 Novolog Vial Sliding Scale - SQ Not Given ACHS CHANTE Protocol Valsartan 160 mg 05/30/19 11:45 Diovan - PO DAILY [facility]ANTE ASSESSMENT/PLAN: Alysha Wagner is a 68 year old female with a past medical history of diabetes, hypertension, CHF, morbid obesity admitted for lower extremity cellulitis likely secondary to diabetes and lower extremity edema from CHF vs liver disease. Lower Extremity Wounds - extensive untreated wounds and chronic changes likely from DM, CHF, venous stasis - podiatry consulted, recs appreciated, no acute intervention, f/u with wound care - wound care consulted, recs appreciated, Alginate with EDWIGE wraps, f/u in wound care for lymphedema pu,p - ID consulted, recs appreciated - continue Vancomycin and Zosyn - Blood culture negative - wound cx with growth pending - tib/fib x-rays with no indication of bony involvement - Tylenol and gabapentin for pain - Physical therapy Edema/Ascites - echo ordered - abd U/s with hepatosplenomegaly, cholelitiasis, no noted ascites - Hep panel pending - duplex with no DVT - keep feet elevated at night - IV Lasix 40mg daily for diuresis - salt and fluid restriction - daily weight - strict I+Os - cardiology consulted, recs appreciated DM - ISS - BGM - A1c 7.2 - hold home diabetic meds HTN - continue home amlodipine Morbid Obesity - counseled on weight lost - dietary consult DVT PPx - Lovenox 40mg subq daily FEN - no standing fluids, caution with fluids in setting of edema - continue to monitor electrolytes and replete as necessary - sodium/diabetic diet Dispo - admit to Med-surg Problem List - Problems (1) CHF (congestive heart failure) Code(s): I50.9 - HEART FAILURE, UNSPECIFIED Qualifiers: Heart failure type: unspecified Heart failure chronicity: acute on chronic Qualified Code(s): I50.9 - Heart failure, unspecified (2) Cellulitis Code(s): L03.90 - CELLULITIS, UNSPECIFIED Qualifiers: Site of cellulitis: extremity Site of cellulitis of extremity: lower extremity Laterality: left Qualified Code(s): L03.116 - Cellulitis of left lower limb (3) HTN (hypertension) Code(s): I10 - ESSENTIAL (PRIMARY) HYPERTENSION Qualifiers: Hypertension type: unspecified Qualified Code(s): I10 - Essential (primary ) hypertension Visit type - Emergency Visit Emergency Visit: Yes ED Registration Date: 05/28/19 Care time: The patient presented to the Emergency Department on the above date and was hospitalized for further evaluation of their emergent condition. - New Patient This patient is new to me today: No - Critical Care Critical Care patient: No
[2019-05-30] MEDS: VALSARTAN 160 MG TABLET (UD) PO SCH (13:54)
[2019-05-30] MEDS: GABAPENTIN 100 MG CAPSULE (FP) PO SCH ×2 (13:58→21:23)
--- NOTE | 2019-05-30 18:32 | PN ---
Teaching Attending Note Name of Resident: Carlos Enrique Rivera ATTENDING PHYSICIAN STATEMENT I saw and evaluated the patient. I reviewed the resident's note and discussed the case with the resident. I agree with the resident's findings and plan as documented. SUBJECTIVE: Feels better, no SOB at rest. Complains of burning in legs, ongoing for > 6 months. No fever/chills. OBJECTIVE: Afebrile, Hemodynamically Stable. Last Vital Signs Temp Pulse Resp BP Pulse Ox 98.4 F 85 18 141/84 94 L 05/30/19 15:10 05/30/19 15:10 05/30/19 15:10 05/30/19 15:10 05/30/19 09:00 Heart - S1, S2, RRR Lungs - distant breath sounds due to body habitus Abdomen - High BMI, soft, non-tender. Bowel Sounds normal. Extremities - Chronic edema, venous stasis with ulcers, currently dressed. Unable to feel pulse in LEs due to edema Neuro - AAO x 3. Tone/Power normal. Laboratory Results - last 24 hr 05/29/19 05/29/19 05/30/19 07:42 21:50 05:59 Sodium Potassium Chloride Carbon Dioxide Anion Gap BUN Creatinine Est GFR (CKD-EPI)AfAm Est GFR (CKD-EPI)NonAf POC Glucometer 188 154 Random Glucose Calcium Hep C Ab Diagnostic 0.2 05/30/19 05/30/19 05/30/19 06:58 11:37 16:46 Sodium 141 Potassium 3.9 Chloride 101 Carbon Dioxide 35 H Anion Gap 5 L BUN 15.3 Creatinine 0.9 Est GFR (CKD-EPI)AfAm 76.68 Est GFR (CKD-EPI)NonAf 66.16 POC Glucometer 152 233 Random Glucose 137 H Calcium 8.9 Hep C Ab Diagnostic Current Medications Generic Name Dose Route Start Last Admin Trade Name Freq PRN Reason Stop Dose Admin Acetaminophen 650 mg 05/29/19 01:10 05/30/19 18:08 Tylenol - PO 650 mg Q6H PRN Administration Fever Or Pain Amlodipine Besylate 5 mg 05/29/19 20:45 05/30/19 09:23 Norvasc - PO 5 mg DAILY [facility]ANTE Administration Furosemide 40 mg 05/29/19 00:15 05/30/19 09:23 Lasix Injection - IVPUSH 40 mg DAILY [facility]ANTE Administration Gabapentin 100 mg 05/30/19 14:00 05/30/19 13:58 Neurontin - PO 100 mg TID CHANTE Administration Heparin Sodium (Porcine) 5,000 unit 05/29/19 06:00 05/30/19 13:54 Heparin - SQ 5,000 unit TID CHANTE Administration Piperacillin Sod/Tazobactam 50 mls @ 100 mls/hr 05/30/19 02:00 05/30/19 17:06 Sod 3.375 gm/ Dextrose IVPB 100 mls/hr Q8H-IV CHANTE Administration Protocol Vancomycin HCl 1,000 mg in 250 mls @ 166.667 mls/hr 05/30/19 01:00 05/30/19 13:55 Vancomycin (Pre-Docked) IVPB 166.667 mls/hr Q12H CHANTE Administration Protocol Insulin Aspart 1 vial 05/29/19 07:00 05/30/19 17:05 Novolog Vial Sliding Scale - SQ 2 units ACHS CHANTE Administration Protocol Valsartan 160 mg 05/30/19 11:45 05/30/19 13:54 Diovan - PO 160 mg DAILY CHANTE Administration Home Medications Medication Instructions Recorded Amlodipine Besylate [Norvasc -] 5 mg PO DAILY MDD 5 05/29/19 Furosemide [Lasix] 20 mg PO DAILY 05/29/19 Glipizide 10 mg PO BID 05/29/19 Levofloxacin [Levaquin] 1 tablet PO DAILY 05/30/19 ASSESSMENT/PLAN: 68 year old female with history DM 2, HTN, morbid obesity, presents with worsening bilateral lower extremity edema/wounds, SOB on exertion, orthopnea. 1. Chronic Venous Stasis with Infected LE Ulcers IV Lasix ongoing (normally on Lasix 20mg daily at home) Vascular/Wound Care evaluated - recommend Alginate dressing, EDWIGE wraps, follow up in wound clinic for wound care and lymphedema pump. Tib/Fib x-rays with no indication of bony involvement LE Duplex - neg for DVT Continue Vancomycin and Zosyn. Wound Cx pending. Echo ordered to exclude CHF Abdo US - no ascites; Cholelithiasis and Hepatosplenomegaly. I/Os, Daily weights, Fluid/Salt restriction Cardiology/ID/ Vascular Sx/Podiatry following. 2. DM 2 - Maintain on Novolog sliding scale. Glipizide held. Patient relays clinical picture consistent with peripheral neuropathy - will start on Gabapentin. 3. HTN - Continue Amlodipine. Diovan added by Cardiology. DVT Px - Heparin SQ
[2019-05-30] MEDS ORDERED: INSULIN (NOVOLOG) ASPART 100 UNITS/ML 10ML VIAL ONE (21:14)
[2019-05-31] MEDS ORDERED: PIPERACILLIN/TAZOBACTAM 3.375 GM VIAL IVPB ONE ×3 (01:11→17:54)
[2019-05-31] MEDS ORDERED: DEXTROSE 5%-WATER - 50 ML IVPB ONE ×3 (01:12→17:54)
[2019-05-31] MEDS: VANCOMYCIN 1 GRAM (PRE-DOCKED) 1,000 MG/250 ML BAG IVPB SCH ×2 (01:30→13:25)
[2019-05-31] MEDS: ACETAMINOPHEN 325 MG TABLET (FP) PO PRN ×2 (01:33→21:48)
[2019-05-31] MEDS: PIPERACILLIN/TAZOB 3.375 GM 3.375 GM in DEXTROSE 5%-WATER - 50 ML IVPB SCH ×3 (02:20→18:00)
[2019-05-31] MEDS: INSULIN SLIDING SCALE (NOVOLOG) 1 VIAL SQ SCH ×4 (06:26→21:49)
[2019-05-31] MEDS: GABAPENTIN 100 MG CAPSULE (FP) PO SCH ×3 (06:29→21:49)
[2019-05-31] MEDS: HEPARIN NA (PORCINE) 5,000 UNITS/ML 1ML VIAL SQ SCH ×3 (06:31→21:48)
[2019-05-31 08:09] LABS: BLOOD UREA NITROGEN 18.3 mg/dL (7-18); CALCIUM 8.6 mg/dL (8.5-10.1); CREATININE 1.1 mg/dL (0.55-1.3); MAGNESIUM 2.1 mg/dL (1.8-2.4)
[2019-05-31] MEDS: VALSARTAN 160 MG TABLET (UD) PO SCH (09:15)
[2019-05-31] MEDS: FUROSEMIDE 40 MG/4 ML INJECTABLE VIAL IVPUSH SCH (09:15)
[2019-05-31] MEDS: amLODIPine BESYLATE 5 MG TABLET (FP) PO SCH (09:15)
[2019-05-31] MEDS ORDERED: INSULIN (NOVOLOG) ASPART 100 UNITS/ML 10ML VIAL ONE (11:16)
--- NOTE | 2019-05-31 12:05 | ECHO ---
Version: 1 Name: LINUS MITCHELL Exam: Adult Echocardiogram Study Date: 05/31/2019, 7:35 AM Age: 68 Years MMode/2D Measurements & Calculations IVSd: 1.25 cm LVIDs: 3.1 cm LVIDd: 5.1 cm LVPWd: 1.35 cm LAV (MOD-bp): 94.0 ml LVOT diam: 1.98 cm Ao root diam: 3.5 cm LA dimension: 3.0 cm Doppler Measurements & Calculations MV E max anthony: 82.5 cm/sec Med E/e': 11.2 MV A max anthony: 73.7 cm/sec Med Peak E' Anthony: 7.4 cm/sec MV E/A: 1.12 Lat E/e': 10.0 Lat Peak E' Anthony: 8.3 cm/sec Ao max P.3 mmHg BRANDON(I,D): 2.46 cm Ao mean P.7 mmHg LV V1 mean: 98.4 cm/sec Ao V2 max: 225.3 cm/sec LV V1 mean P.4 mmHg TR max anthony: 355.6 cm/sec TR max P.7 mmHg Procedure A complete two-dimensional transthoracic echocardiogram was performed (2D, M-mode, Doppler and color flow Doppler). Left Ventricle There is mild concentric left ventricular hypertrophy. Ejection Fraction = 65%. Left ventricular sys tolic function is normal. E/A reversal consistent with but not diagnostic of poor LV compliance. The left ventricular wall motion is normal. Right Ventricle The right ventricle is normal in size and function. Atria Normal left and right atrial size and function. Mitral Valve The mitral valve is normal in structure and function. There is trace mitral regurgitation. Tricuspid Valve The tricuspid valve is normal in structure and function. Right ventricular systolic pressure is elev ated at 50.7 mmhg. There is severe pulmonary hypertension. There is mild tricuspid regurgitation. Aortic Valve There is mild aortic valve thickening. Mild aortic regurgitation. Pulmonic Valve The pulmonic valve is normal in structure and function. Great Vessels The aortic root is normal size. Pericardium/Pleura There is no pericardial effusion. There is no pleural effusion. Summary Statements There is mild concentric left ventricular hypertrophy. Left ventricular systolic function is normal. Ejection Fraction = 65%. There is trace mitral regurgitation. There is mild tricuspid regurgitation. There is severe pulmonary hypertension. Right ventricular systolic pressure is elevated at 50.7 mmhg. There is mild aortic valve thickening. Mild aortic regurgitation. MD Dylan Harrington 05/31/2019, 12:04 PM Ordering Physician: Carlos Enrique Rivera Performed By: Pily Rincon
--- NOTE | 2019-05-31 13:02 | PN ---
Progress Note, Physician Chief Complaint: PHTN noted on Echo She denies CP Still SOB but feels better c/w yesterday and O2 helping. History of Present Illness: weight down from admission - Current Medication List Current Medications: Active Medications Acetaminophen (Tylenol -) 650 mg PO Q6H PRN PRN Reason: Fever Or Pain Last Admin: 05/31/19 01:33 Dose: 650 mg Amlodipine Besylate (Norvasc -) 5 mg PO DAILY [facility] Last Admin: 05/31/19 09:15 Dose: 5 mg Furosemide (Lasix Injection -) 40 mg IVPUSH DAILY [facility] Last Admin: 05/31/19 09:15 Dose: 40 mg Gabapentin (Neurontin -) 100 mg PO TID [facility] Last Admin: 05/31/19 06:29 Dose: 100 mg Heparin Sodium (Porcine) (Heparin -) 5,000 unit SQ TID [facility] Last Admin: 05/31/19 06:31 Dose: 5,000 unit Piperacillin Sod/Tazobactam (Sod 3.375 gm/ Dextrose) 50 mls @ 100 mls/hr IVPB Q8H-IV [facility]; Protocol Last Admin: 05/31/19 09:15 Dose: 100 mls/hr Vancomycin HCl (Vancomycin (Pre-Docked)) 1,000 mg in 250 mls @ 166.667 mls/hr IVPB Q12H [facility]; Protocol Last Admin: 05/31/19 01:30 Dose: 166.667 mls/hr Insulin Aspart (Novolog Vial Sliding Scale -) 1 vial SQ ACHS [facility]; Protocol Last Admin: 05/31/19 11:24 Dose: Not Given Valsartan (Diovan -) 160 mg PO DAILY [facility] Last Admin: 05/31/19 09:15 Dose: 160 mg - Objective Vital Signs: Vital Signs Temperature 99.0 F 05/31/19 10:00 Pulse Rate 88 05/31/19 10:00 Respiratory Rate 20 05/31/19 10:00 Blood Pressure 144/52 L 05/31/19 10:00 O2 Sat by Pulse Oximetry (%) 95 05/31/19 09:00 Constitutional: Yes: No Distress Cardiovascular: Yes: Regular Rate and Rhythm Respiratory: Yes: Other (decreased breath sounds bases.) Gastrointestinal: Yes: Soft, Abdomen, Obese Edema: Yes Edema: LLE: 2+, RLE: 2+ Neurological: Yes: Alert Labs: CBC, BMP 05/29/19 07:54 05/31/19 06:42 INR, PTT INR 1.11 (0.83-1.09) H 05/28/19 19:35 Assessment/Plan leg swelling, sob, CHF: Acute on chronic diastolic, with PHTN and some right sided CHF sx -BNP 1K (no priors), still with SOB and LE edema. -echo reviewed. -Increase Lasix to 40mg IV BID today (will order extra dose for today) -bp controlled -Daily weights and BMP to monitor renal fx HTN: -improved -cont amlodipine, valsartan DM: -A1c 7s -per hospitalist leg wounds: -per hospitalist team
[2019-05-31] MEDS ORDERED: FUROSEMIDE 40 MG/4 ML INJECTABLE VIAL IVPUSH ONE (14:45)
--- NOTE | 2019-05-31 15:31 | PN ---
Physical Exam: SUBJECTIVE: Patient seen and examined at the bedside. Patient stated that her pain had improved but she continues to have pain and swelling in her legs. Endorses good appetite. She denies cp, sob, abd pain, n/v/c/d, headaches, dizziness, lightheadedness. OBJECTIVE: Vital Signs Period Temp Pulse Resp BP Sys/Espinal Pulse Ox Last 24 Hr 98.1 F-99.7 F 84-107 18-21 129-151/52-81 94-95 GENERAL: Awake, alert, and fully oriented, in no acute distress. Pleasant. HEAD: Normal with no signs of trauma. EYES: Pupils equal, round and reactive to light, extraocular movements intact. EARS, NOSE, THROAT: Oropharynx clear without exudates. Moist mucous membranes. NECK: Normal range of motion, supple without lymphadenopathy, JVD. LUNGS: Diminished significantly bilaterally. No wheezes, and no crackles. No accessory muscle use. HEART: Occasionally heard extra beats, otherwise regular rate and rhythm, normal S1 and S2 with systolic ejection murmur. ABDOMEN: Nontender, distended and obese, normoactive bowel sounds, no guarding, no rebound, no masses. MUSCULOSKELETAL: Decreased range of motion on legs due to pain. LOWER EXTREMITIES: Poorly palpated pulses. Significant brown discoloration of skin up to ankles. Weeping of the skin. L leg ulcer on the medial trevino and calf. Warm, tender to palpation. 3+ edema up to the knees. NEUROLOGICAL: Cranial nerves II-XII intact. 5/5 muscle strength bilaterally on upper extremities. 4/5 on the lower extremities, limited due to pain. PSYCHIATRIC: Cooperative. Good eye contact. Appropriate mood and affect. SKIN: Significant brown discoloration of skin up to ankles. Weeping of the skin. L leg ulcer on the medial trevino and calf improved. Laboratory Results - last 24 hr 05/30/19 05/30/19 05/31/19 16:46 21:07 05:53 Sodium Potassium Chloride Carbon Dioxide Anion Gap BUN Creatinine Est GFR (CKD-EPI)AfAm Est GFR (CKD-EPI)NonAf POC Glucometer 233 142 143 Random Glucose Calcium Magnesium 05/31/19 05/31/19 06:42 11:19 Sodium 139 Potassium 4.0 Chloride 99 Carbon Dioxide 35 H Anion Gap 5 L BUN 18.3 H Creatinine 1.1 Est GFR (CKD-EPI)AfAm 60.16 Est GFR (CKD-EPI)NonAf 51.91 POC Glucometer 161 Random Glucose 135 H Calcium 8.6 Magnesium 2.1 Active Medications Generic Name Dose Route Start Last Admin Trade Name Freq PRN Reason Stop Dose Admin Acetaminophen 650 mg 05/29/19 01:10 05/31/19 01:33 Tylenol - PO 650 mg Q6H PRN Administration Fever Or Pain Amlodipine Besylate 5 mg 05/29/19 20:45 05/31/19 09:15 Norvasc - PO 5 mg DAILY [facility] Administration Furosemide 40 mg 06/01/19 06:00 Lasix Injection - IVPUSH BIDLASIX [facility] Gabapentin 100 mg 05/30/19 14:00 05/31/19 13:26 Neurontin - PO Not Given TID [facility] Heparin Sodium (Porcine) 5,000 unit 05/29/19 06:00 05/31/19 13:25 Heparin - SQ 5,000 unit TID [facility] Administration Piperacillin Sod/Tazobactam 50 mls @ 100 mls/hr 05/30/19 02:00 05/31/19 09:15 Sod 3.375 gm/ Dextrose IVPB 100 mls/hr Q8H-IV [facility] Administration Protocol Vancomycin HCl 1,000 mg in 250 mls @ 166.667 mls/hr 05/30/19 01:00 05/31/19 13:25 Vancomycin (Pre-Docked) IVPB 166.667 mls/hr Q12H [facility] Administration Protocol Insulin Aspart 1 vial 05/29/19 07:00 05/31/19 11:24 Novolog Vial Sliding Scale - SQ Not Given ACHS [facility] Protocol Valsartan 160 mg 05/30/19 11:45 05/31/19 09:15 Diovan - PO 160 mg DAILY [facility] Administration ASSESSMENT/PLAN: Alysha Wagner is a 68 year old female with a past medical history of diabetes, hypertension, CHF, morbid obesity admitted for lower extremity cellulitis likely secondary to diabetes and lower extremity edema from CHF vs liver disease. Lower Extremity Wounds - extensive untreated wounds and chronic changes likely from DM, CHF, venous stasis - podiatry consulted, recs appreciated, no acute intervention, f/u with wound care - wound care consulted, recs appreciated, Alginate with EDWIGE wraps, f/u in wound care for lymphedema pump - ID consulted, recs appreciated - continue Vancomycin and Zosyn - Blood culture negative - wound cx with growth pending - tib/fib x-rays with no indication of bony involvement - Tylenol and gabapentin for pain - Physical therapy Edema/Ascites/SOB - echo noting mild concentric LVH, EF 65%, trace mitral regurg, mild tricuspid regurg, sever pulmonary HTN, RVH systolic pressure, mild aortic valve thickening - abd U/s with hepatosplenomegaly, cholelitiasis, no noted ascites - Hep panel pending - duplex with no DVT - keep feet elevated at night - IV Lasix 40mg bid for diuresis as per cardiology - salt and fluid restriction - daily weight - strict I+Os - cardiology consulted, recs appreciated - will require pre and post prior to discharge to assess need for oxygen DM - ISS - BGM - A1c 7.2 - hold home diabetic meds HTN - continue home amlodipine Morbid Obesity - counseled on weight lost - dietary consult DVT PPx - Lovenox 40mg subq daily FEN - no standing fluids, caution with fluids in setting of edema - continue to monitor electrolytes and replete as necessary - sodium/diabetic diet Dispo - continue to monitor on Med-surg Problem List - Problems (1) CHF (congestive heart failure) Code(s): I50.9 - HEART FAILURE, UNSPECIFIED Qualifiers: Heart failure type: unspecified Heart failure chronicity: acute on chronic Qualified Code(s): I50.9 - Heart failure, unspecified (2) Cellulitis Code(s): L03.90 - CELLULITIS, UNSPECIFIED Qualifiers: Site of cellulitis: extremity Site of cellulitis of extremity: lower extremity Laterality: left Qualified Code(s): L03.116 - Cellulitis of left lower limb (3) HTN (hypertension) Code(s): I10 - ESSENTIAL (PRIMARY) HYPERTENSION Qualifiers: Hypertension type: unspecified Qualified Code(s): I10 - Essential (primary ) hypertension Visit type - Emergency Visit Emergency Visit: Yes ED Registration Date: 05/28/19 Care time: The patient presented to the Emergency Department on the above date and was hospitalized for further evaluation of their emergent condition. - New Patient This patient is new to me today: No - Critical Care Critical Care patient: No
--- NOTE | 2019-05-31 18:41 | PN ---
Teaching Attending Note Name of Resident: Brielle Guzman ATTENDING PHYSICIAN STATEMENT I saw and evaluated the patient. I reviewed the resident's note and discussed the case with the resident. I agree with the resident's findings and plan as documented. SUBJECTIVE: pain in legs . SOB . OBJECTIVE: NAD , awake, alert, cooperative . Morbidly obese CV: RRR Lungs : CTAB , decreased breath sounds at bases Ext : leg wounds with minimal thick discharge. surrounding erythema and tenderness erythema and edema on feet Abd: obese,. soft, NT, ND . ASSESSMENT AND PLAN: 68 y/o lady with ho DM , HTN, morbid obesity who presented with worsening LE edema , pain and worsening wounds 1- LE cellulitis with infected wounds 2- Severe pulmonary HTN 3- Hepatosplenomegaly 4- LE edema , likely acute diastolic heart failure 5- DM 6- HTN plan : - cont vanco and zosyn - will check vanco trough tonight. goal 10-15 - appreciate Card input . cont increased dose of lasix - cont to hold glipizid enad cont SSI - cont norvasc - will check pre-post ambulatory pulse ox when close to dc - Echo reviewed. f/u with card and pulm for severe pulmonary HTN - f/u with GI regarding hepatosplenomegaly - heparin SQ for DVT px
[2019-06-01] MEDS: PIPERACILLIN/TAZOB 3.375 GM 3.375 GM in DEXTROSE 5%-WATER - 50 ML IVPB SCH ×2 (02:30→10:49)
[2019-06-01] MEDS ORDERED: PIPERACILLIN/TAZOBACTAM 3.375 GM VIAL IVPB ONE ×2 (02:39→10:45)
[2019-06-01] MEDS ORDERED: DEXTROSE 5%-WATER - 50 ML IVPB ONE ×2 (02:39→10:45)
[2019-06-01] MEDS: VANCOMYCIN 1 GRAM (PRE-DOCKED) 1,000 MG/250 ML BAG IVPB SCH ×2 (03:16→13:28)
[2019-06-01] MEDS ORDERED: diphenhydrAMINE HCL 25 MG CAPSULE (FP) PO ONE (03:41)
[2019-06-01] MEDS: ACETAMINOPHEN 325 MG TABLET (FP) PO PRN ×2 (03:59→16:59)
[2019-06-01] MEDS: HEPARIN NA (PORCINE) 5,000 UNITS/ML 1ML VIAL SQ SCH ×3 (06:03→21:45)
[2019-06-01] MEDS: FUROSEMIDE 40 MG/4 ML INJECTABLE VIAL IVPUSH SCH ×2 (06:04→13:28)
[2019-06-01] MEDS: GABAPENTIN 100 MG CAPSULE (FP) PO SCH ×3 (06:04→21:37)
[2019-06-01] MEDS: INSULIN SLIDING SCALE (NOVOLOG) 1 VIAL SQ SCH ×4 (06:04→21:30)
[2019-06-01 08:54] LABS: BLOOD UREA NITROGEN 18.4 mg/dL (7-18); CALCIUM 8.3 mg/dL (8.5-10.1); CREATININE 1.1 mg/dL (0.55-1.3); MAGNESIUM 2.1 mg/dL (1.8-2.4); POTASSIUM 3.5 mmol/L (3.5-5.1)
[2019-06-01] MEDS: amLODIPine BESYLATE 5 MG TABLET (FP) PO SCH (10:49)
[2019-06-01] MEDS: VALSARTAN 160 MG TABLET (UD) PO SCH (10:49)
--- NOTE | 2019-06-01 14:24 | PN ---
Physical Exam: SUBJECTIVE: Patient seen and examined at the bedside. Stated she is doing well. Continue to complain of leg pain. Has improving breathing. Stated she had subjective fevers overnight. Denies cp, abd pain, cough, n/v/c/d, dizziness, lightheadedness, headaches. OBJECTIVE: Vital Signs Period Temp Pulse Resp BP Sys/Espinal Pulse Ox Last 24 Hr 98.3 F-100.2 F 80-102 20-21 116-162/60-100 97-99 GENERAL: Awake, alert, and fully oriented, in no acute distress. Pleasant. HEAD: Normal with no signs of trauma. EYES: Pupils equal, round and reactive to light, extraocular movements intact. EARS, NOSE, THROAT: Oropharynx clear without exudates. Moist mucous membranes. NECK: Normal range of motion, supple without lymphadenopathy, JVD. LUNGS: Diminished significantly bilaterally. No wheezes, and no crackles. No accessory muscle use. HEART: Regular rate and rhythm, normal S1 and S2 with systolic ejection murmur. ABDOMEN: Nontender, distended and obese, normoactive bowel sounds, no guarding, no rebound, no masses. MUSCULOSKELETAL: Decreased range of motion on legs due to pain. LOWER EXTREMITIES: Poorly palpated pulses. Significant brown discoloration of skin up to ankles. Weeping of the skin. L leg ulcer on the medial trevino and calf. Warm, tender to palpation. 3+ edema up to the knees. NEUROLOGICAL: Cranial nerves II-XII intact. 5/5 muscle strength bilaterally on upper extremities. 4/5 on the lower extremities, limited due to pain. PSYCHIATRIC: Cooperative. Good eye contact. Appropriate mood and affect. SKIN: Significant brown discoloration of skin up to ankles. Weeping of the skin. L leg ulcer on the medial trevino and calf improved. Laboratory Results - last 24 hr 05/31/19 05/31/19 06/01/19 16:16 21:40 00:15 Sodium Potassium Chloride Carbon Dioxide Anion Gap BUN Creatinine Est GFR (CKD-EPI)AfAm Est GFR (CKD-EPI)NonAf POC Glucometer 179 164 Random Glucose Calcium Magnesium Vancomycin Pre-Dose 14.4 L 06/01/19 06/01/19 06/01/19 05:51 07:27 11:46 Sodium 140 Potassium 3.5 Chloride 99 Carbon Dioxide 36 H Anion Gap 5 L BUN 18.4 H Creatinine 1.1 Est GFR (CKD-EPI)AfAm 60.16 Est GFR (CKD-EPI)NonAf 51.91 POC Glucometer 152 204 Random Glucose 135 H Calcium 8.3 L Magnesium 2.1 Vancomycin Pre-Dose Active Medications Generic Name Dose Route Start Last Admin Trade Name Freq PRN Reason Stop Dose Admin Acetaminophen 650 mg 05/29/19 01:10 06/01/19 03:59 Tylenol - PO 650 mg Q6H PRN Administration Fever Or Pain Amlodipine Besylate 5 mg 05/29/19 20:45 06/01/19 10:49 Norvasc - PO 5 mg DAILY [facility] Administration Furosemide 40 mg 06/01/19 06:00 06/01/19 13:28 Lasix Injection - IVPUSH 40 mg BIDLASIX [facility] Administration Gabapentin 100 mg 05/30/19 14:00 06/01/19 13:28 Neurontin - PO Not Given TID [facility] Heparin Sodium (Porcine) 5,000 unit 05/29/19 06:00 06/01/19 13:28 Heparin - SQ 5,000 unit TID [facility] Administration Piperacillin Sod/Tazobactam 50 mls @ 100 mls/hr 05/30/19 02:00 06/01/19 10:49 Sod 3.375 gm/ Dextrose IVPB 100 mls/hr Q8H-IV [facility] Administration Protocol Vancomycin HCl 1,000 mg in 250 mls @ 166.667 mls/hr 05/30/19 01:00 06/01/19 13:28 Vancomycin (Pre-Docked) IVPB 166.667 mls/hr Q12H [facility] Administration Protocol Insulin Aspart 1 vial 05/29/19 07:00 06/01/19 11:56 Novolog Vial Sliding Scale - SQ 2 units ACHS [facility] Administration Protocol Valsartan 160 mg 05/30/19 11:45 06/01/19 10:49 Diovan - PO 160 mg DAILY [facility] Administration ASSESSMENT/PLAN: Alysha Wagner is a 68 year old female with a past medical history of diabetes, hypertension, CHF, morbid obesity admitted for lower extremity cellulitis likely secondary to diabetes and lower extremity edema from CHF vs liver disease. Lower Extremity Wounds - extensive untreated wounds and chronic changes likely from DM, CHF, venous stasis - podiatry consulted, recs appreciated, no acute intervention, f/u with wound care - wound care consulted, recs appreciated, Alginate with EDWIGE wraps, f/u in wound care for lymphedema pump - ID consulted, recs appreciated - discontinue vanc/zosyn, start cefepime - patient noted her PCN allergy with reaction of shaking and minor itching, denies respiratory distress, angioedema, previous intubation. Currently no rash or any other evidence to suspect drug reaction. - Blood culture negative, will repeat in setting of low grade fever - wound cx with growth noting Pseudomonas fluorescens/putida - tib/fib x-rays with no indication of bony involvement - Tylenol, gabapentin, and venlafaxine for pain - Physical therapy - arterial duplex to examine for arterial compromise - ESR/CRP Edema/Ascites/SOB - echo noting mild concentric LVH, EF 65%, trace mitral regurg, mild tricuspid regurg, sever pulmonary HTN, RVH systolic pressure, mild aortic valve thickening - abd U/s with hepatosplenomegaly, cholelitiasis, no noted ascites - Hep panel pending - duplex with no DVT - keep feet elevated at night - IV Lasix 40mg bid for diuresis as per cardiology - salt and fluid restriction - daily weight - strict I+Os - cardiology consulted, recs appreciated - will require pre and post prior to discharge to assess need for oxygen - will get morning ABG to assess for obesity hypoventilation syndrome - respiratory consulted DM - ISS - BGM - A1c 7.2 - hold home diabetic meds HTN - continue home amlodipine Morbid Obesity - counseled on weight lost - dietary consult - will get morning ABG to assess for obesity hypoventilation syndrome DVT PPx - Lovenox 40mg subq daily FEN - no standing fluids, caution with fluids in setting of edema - continue to monitor electrolytes and replete as necessary - sodium/diabetic diet Dispo - continue to monitor on Med-surg Problem List - Problems (1) CHF (congestive heart failure) Code(s): I50.9 - HEART FAILURE, UNSPECIFIED Qualifiers: Heart failure type: unspecified Heart failure chronicity: acute on chronic Qualified Code(s): I50.9 - Heart failure, unspecified (2) Cellulitis Code(s): L03.90 - CELLULITIS, UNSPECIFIED Qualifiers: Site of cellulitis: extremity Site of cellulitis of extremity: lower extremity Laterality: left Qualified Code(s): L03.116 - Cellulitis of left lower limb (3) HTN (hypertension) Code(s): I10 - ESSENTIAL (PRIMARY) HYPERTENSION Qualifiers: Hypertension type: unspecified Qualified Code(s): I10 - Essential (primary ) hypertension Visit type - Emergency Visit Emergency Visit: Yes ED Registration Date: 05/28/19 Care time: The patient presented to the Emergency Department on the above date and was hospitalized for further evaluation of their emergent condition. - New Patient This patient is new to me today: No - Critical Care Critical Care patient: No
--- NOTE | 2019-06-01 14:45 | PN ---
Progress Note (short form) - Note Progress Note: notes chronic legs pains since she started having toruble with her legs last September Vital Signs Period Temp Pulse Resp BP Sys/Espinal Pulse Ox Last 24 Hr 98.3 F-100.2 F 80-102 - 116-162/60-100 97-99 cor-rrr lungs decreased bs at bases abd soft,nt ext +edema, ulcers are clean no drainage CBC, BMP 05/29/19 07:54 06/01/19 07:27 Microbiology 05/28/19 19:35 Leg - Left Lower Gram Stain - Final 05/28/19 19:35 Leg - Left Lower Wound Culture - Preliminary Pseudo Fluorescens/Putida Group D Strep Or Entero Coccus Staphylococcus Coagulase Neg 05/28/19 19:35 Blood - Peripheral Venous Blood Culture - Preliminary NO GROWTH OBTAINED AFTER 72 HOURS, INCUBATION TO CONTINUE FOR 2 DAYS. 05/28/19 19:35 Blood - Peripheral Venous Blood Culture - Preliminary NO GROWTH OBTAINED AFTER 72 HOURS, INCUBATION TO CONTINUE FOR 2 DAYS. a/p fevers- ?etiology chronic lower extremity ulcers- appear clean- no drainage- day #4 vanco/zosyn describes burning in her legs with penicillin, currently no evidence of rash on lasix for chf influenza screen sent and pending suggest repeat labs can d/c vancomycin-no MRSA switch to cefepime do not think wound cultures represent true pathogens
--- NOTE | 2019-06-01 15:39 | PN ---
Progress Note (short form) - Note Progress Note: s: no cp dizzy palps, sob better Current Medications Generic Name Dose Route Start Last Admin Trade Name Andrea PRN Reason Stop Dose Admin Acetaminophen 650 mg 05/29/19 01:10 06/01/19 03:59 Tylenol - PO 650 mg Q6H PRN Administration Fever Or Pain Amlodipine Besylate 5 mg 05/29/19 20:45 06/01/19 10:49 Norvasc - PO 5 mg DAILY [facility] Administration Furosemide 40 mg 06/01/19 06:00 06/01/19 13:28 Lasix Injection - IVPUSH 40 mg BIDLASIX [facility] Administration Gabapentin 100 mg 05/30/19 14:00 06/01/19 13:28 Neurontin - PO Not Given TID [facility] Heparin Sodium (Porcine) 5,000 unit 05/29/19 06:00 06/01/19 13:28 Heparin - SQ 5,000 unit TID [facility] Administration Cefepime HCl 1 gm/ Dextrose 100 mls @ 100 mls/hr 06/01/19 18:00 IVPB Q8H-IV [facility] Protocol Insulin Aspart 1 vial 05/29/19 07:00 06/01/19 11:56 Novolog Vial Sliding Scale - SQ 2 units ACHS [facility] Administration Protocol Valsartan 160 mg 05/30/19 11:45 06/01/19 10:49 Diovan - PO 160 mg DAILY [facility] Administration Vital Signs Period Temp Pulse Resp BP Sys/Espinal Pulse Ox Last 24 Hr 98.3 F-100.2 F 80-102 20-21 116-162/60-100 97-99 Constitutional: Yes: No Distress Cardiovascular: Yes: Regular Rate and Rhythm Respiratory: Yes: Other (decreased breath sounds bases.) Gastrointestinal: Yes: Soft, Abdomen, Obese Edema: Yes Edema: LLE: 2+, RLE: 2+ Neurological: Yes: Alert no jaundice diaphoresis CBC, BMP 05/29/19 07:54 06/01/19 07:27 Assessment/Plan leg swelling, sob, CHF: Acute on chronic diastolic, with PHTN and some right sided CHF sx -BNP 1K (no priors), still with SOB and LE edema. -echo reviewed. -cont iv lasix -bp controlled -Daily weights and BMP to monitor renal fx HTN: -improved -cont amlodipine, valsartan DM: -A1c 7s -per hospitalist leg wounds: -per hospitalist team
[2019-06-01] MEDS ORDERED: DEXTROSE 5%-WATER 100 ML IVPB ONE (16:56)
[2019-06-01] MEDS ORDERED: CEFEPIME HCL 1 GM VIAL (RESTRICTED TO ID) ONE (16:56)
[2019-06-01] MEDS: CEFEPIME 1 GM in DEXTROSE 5%-WATER 100 ML IVPB SCH (17:00)
--- NOTE | 2019-06-01 17:43 | PN ---
Teaching Attending Note Name of Resident: Carlos Enrique Rivera ATTENDING PHYSICIAN STATEMENT I saw and evaluated the patient. I reviewed the resident's note and discussed the case with the resident. I agree with the resident's findings and plan as documented. Seen and examined; please see resident note for further historical information. I personally verified all [place] historical information and exam findings. Personally interpreted all imaging and diagnostics and reviewed appropriate consults. I reviewed all labs and vital signs as per resident note and EMR as documented. I agree with the above assessment and plan unless supplemented by myself in the following. Spoke to patient at length regarding her perceived allergic reaction overnight. The patient tells me that she was told approximately 40 years ago that she was allergic to Augmentin after developing a rash for what sounds like treatment of a viral exanthem. She states that she never had anaphylaxis, her symptoms were constrained to itching of the legs around the area of the wounds which would actually be consistent of this symptom of the chronic lower extremity wound rather than an allergic reaction. No rash or systemic signs were observed. No anaphylaxis, etc. etc. I am informed by nursing infectious disease to discuss this with the patient as well and that this did not represent a true allergic reaction. 10 system review of systems completed and is negative aside from history of present illness VS, labs, imaging reviewed NAD, AAO, resting comfortably in bed. RRR s1/2 no mgr Normal muscle tone, moves all 5 extremities with normal apparent strength Neck is supple, trachea midline, no roger LN Lungs CTAB with sym expansion NT ND +BS no roger organomegaly CN2-12 wnl; no FND NC AT EOMI PERRLA Normal mood, appropriate behavior, euthymic affect Large lower extremities with dependent edema, wrapped. Symmetrical ulcerations. Microbiology 05/28/19 19:35 Leg - Left Lower Gram Stain - Final 05/28/19 19:35 Leg - Left Lower Wound Culture - Preliminary Pseudo Fluorescens/Putida Group D Strep Or Entero Coccus Staphylococcus Coagulase Neg 05/28/19 19:35 Blood - Peripheral Venous Blood Culture - Preliminary NO GROWTH OBTAINED AFTER 72 HOURS, INCUBATION TO CONTINUE FOR 2 DAYS. 05/28/19 19:35 Blood - Peripheral Venous Blood Culture - Preliminary NO GROWTH OBTAINED AFTER 72 HOURS, INCUBATION TO CONTINUE FOR 2 DAYS. Echocardiogram reviewed Chest x-ray reviewed Weights, ins and outs reviewed. Problems include: -Chronic lower extremity wounds, cellulitis versus arterial disease, wound healing is severely impaired. The patient is febrile and this is likely secondary to underlying infectious/inflammatory process, will need to obtain arterial Dopplers to elucidate if any underlying vascular disease; concerned that her underlying habitus will limit the utility of the aforementioned test. ESR/CRP pending. If underlying suspected etiology of PAD can consult vascular. Though lesions of peripheral arterial disease are not classically associated with acute infection, I must point out that her exquisitely poor wound healing secondary to her BMI would be implicated in contributing to lending this as a source of infection. Abx per ID, appreciate expert management. Will also mention that the LE cultures were superficiial and likely do not represent the acute source of infection. This opinion is also shared by ID; will change to cefepime per their service and discuss final course. -Acute on chronic diastolic CHF exacerbation, cardiology continues to follow. Monitor ins and O's, weights, on IV Lasix. -Suspected allergic reaction, not allergic reaction. Monitor, but very unlikely -History of hypertension, uncontrolled but improved. Continue amlodipine and valsartan and monitor renal function -Diabetes mellitus, A1c 7 -Suspected pickwickian syndrome, a.m. ABG. -Super morbid obesity. BMI is 64.5. Continue to education counselor, evaluate for JUNE and pickwickian. -Pulmonary HTN, per pulmonary. Will consult. Discuss any need for RHC with CV nonurgently at this juncture. DVT ppx reviewed ASSESSMENT AND PLAN:
[2019-06-01] MEDS ORDERED: INSULIN (NOVOLOG) ASPART 100 UNITS/ML 10ML VIAL ONE (21:33)
[2019-06-01] MEDS: VENLAFAXINE HCL 75 MG TABLET PO SCH (21:50)
--- NOTE | 2019-06-01 22:14 | PN ---
Progress Note (short form) - Note Progress Note: Paged at 3:30am that patient was experiencing rash on RUE after receiving zosyn antibiotics. Went to evaluate patient. She had mild erythema around IV site with itchiness. Vitals normal, no difficulty breathing. Patient reported she believes she has a PCN allergy. IV was removed and replaced. Pt given benadryl and symptoms improved. Sign out was given to pt's primary team of the reaction so that proper adjustments to further antibiotic treatment could be made.
[2019-06-02] MEDS ORDERED: CEFEPIME HCL 1 GM VIAL (RESTRICTED TO ID) ONE ×3 (01:56→17:47)
[2019-06-02] MEDS ORDERED: DEXTROSE 5%-WATER 100 ML IVPB ONE ×3 (01:56→17:47)
[2019-06-02 02:09] LABS: HEP B CORE AB, TOT Negative (Negative)
[2019-06-02] MEDS: CEFEPIME 1 GM in DEXTROSE 5%-WATER 100 ML IVPB SCH ×3 (02:28→18:04)
[2019-06-02] MEDS: ACETAMINOPHEN 325 MG TABLET (FP) PO PRN (06:17)
[2019-06-02] MEDS: FUROSEMIDE 40 MG/4 ML INJECTABLE VIAL IVPUSH SCH ×2 (06:17→14:08)
[2019-06-02] MEDS: GABAPENTIN 100 MG CAPSULE (FP) PO SCH ×3 (06:17→22:30)
[2019-06-02] MEDS: HEPARIN NA (PORCINE) 5,000 UNITS/ML 1ML VIAL SQ SCH ×3 (06:17→22:27)
[2019-06-02] MEDS: INSULIN SLIDING SCALE (NOVOLOG) 1 VIAL SQ SCH ×4 (06:18→22:27)
[2019-06-02 07:51] LABS: ARTERIAL BLOOD GAS PCO2 57.1 mmHg (35-45); ARTERIAL BLOOD GAS pH 7.44 (7.35-7.45)
[2019-06-02 07:52] LABS: ARTERIAL BLD GAS O2 SATURATION 85.1 % (95-98); ARTERIAL BLOOD GAS BASE EXCESS 11.7 meq/l (-2-2)
[2019-06-02 07:53] LABS: ALLENS TEST POSITIVE
[2019-06-02 07:55] LABS: ARTERIAL BLOOD GAS PO2 49.6 mmHg (80-100)
[2019-06-02 09:23] LABS: BASO % 0.5 % (0-2.0); EOS % 1.9 % (0-4.5); HEMATOCRIT 37.6 % (32.4-45.2); HEMOGLOBIN 12.2 GM/dL (10.7-15.3); LYMPH % 19.1 % (8-40); MCH 28.2 pg (25.7-33.7); MCHC 32.4 g/dl (32.0-36.0); MEAN CELL VOLUME 87.1 fl (80-96); MEAN PLT VOLUME 9.8 fl (7.5-11.1); MONO % 7.5 % (3.8-10.2); PLATELET COUNT 188 K/MM3 (134-434); RBC 4.32 M/mm3 (3.60-5.2); RDW 14.2 % (11.6-15.6); WHITE BLOOD COUNT 7.2 K/mm3 (4.0-10.0)
--- NOTE | 2019-06-02 09:31 | CON.PULM ---
Consult Consult Specialty:: PULM/CCM Referred by:: Hospitalist Reason for Consultation:: OSAS / Hypercapnia - History of Present Illness History of Present Illness: 68 F, diabetes, hypertension, CHF, morbid obesity, previous diagnosis of OSAS aboyt 10 years ago at [facility] and was previously on CPAP therapy. Discontinued therapy many years ago as she felt the device was causing excessive mucous. (+) snoring (+) EDS (+) witnessed apneas Admitted via the ER due to bilateral lower extremity wounds. No hemoptysis or night sweats. Denies recent travel or sick contacts. ABG: Chronic Hypercapnea / Hypoxemia Do not suspect VTE. - History Source History Provided By: Patient Limitations to Obtaining History: No Limitations - Past Medical History Pulmonary: Yes: Bronchitis, Sleep Apnea. No: Asthma, Cancer, COPD, O2 Dependent , Pneumonia, Previously Intubated, Pulmonary Embolus, Pulmonary Fibrosis ...: No - Alcohol/Substance Use Hx Alcohol Use: No - Smoking History Smoking history: Never smoked Home Medications - Allergies Allergies/Adverse Reactions: Allergies Allergy/AdvReac Type Severity Reaction Status Date / Time Penicillins Allergy Unknown Verified 06/01/19 12:21 - Home Medications Home Medications: Ambulatory Orders Amlodipine Besylate [Norvasc -] 5 mg PO DAILY MDD 5 05/29/19 Furosemide [Lasix] 20 mg PO DAILY 05/29/19 Glipizide 10 mg PO BID 05/29/19 Levofloxacin [Levaquin] 1 tablet PO DAILY 05/30/19 Review of Systems - Review of Systems Constitutional: reports: Malaise. denies: Chills, Fever, Night Sweats Eyes: reports: No Symptoms HENT: reports: No Symptoms Neck: reports: No Symptoms Cardiovascular: reports: Edema, Shortness of Breath. denies: Chest Pain, Palpitations Respiratory: reports: Cough, Snoring, SOB, SOB on Exertion. denies: Hemoptysis , Orthopnea, PND, Wheezing Gastrointestinal: reports: No Symptoms Genitourinary: reports: No Symptoms Breasts: reports: No Symptoms Reported Musculoskeletal: reports: Back Pain, Extremity Pain, Muscle Cramps Integumentary: reports: Bruising, Change in Color, Lesions, Wound Neurological: reports: No Symptoms Endocrine: reports: No Symptoms Hematology/Lymphatic: reports: No Symptoms Psychiatric: reports: No Symptoms Physical Exam Vital Sings: Vital Signs Temperature 98.8 F 06/02/19 06:05 Pulse Rate 83 06/02/19 06:05 Respiratory Rate 20 06/02/19 06:05 Blood Pressure 141/95 06/02/19 06:05 O2 Sat by Pulse Oximetry (%) 97 06/01/19 21:00 Constitutional: Yes: Calm, Obese Eyes: Yes: Conjunctiva Clear, EOM Intact HENT: Yes: Atraumatic, Normocephalic Neck: Yes: Supple, Trachea Midline Cardiovascular: Yes: Regular Rate and Rhythm Respiratory: Yes: Diminished, On Nasal O2, SOB on Exertion. No: Accessory Muscle Use, Rales, Rhonchi, SOB, Stridor, Tachypnea, Wheezes ...Inspection: Yes: WNL ...Clubbing: No Gastrointestinal: Yes: Normal Bowel Sounds, Soft, Abdomen, Obese Renal/: Yes: WNL Musculoskeletal: Yes: Back Pain Extremities: Yes: Other (chronic changes ) Edema: Yes Peripheral Pulses WNL: Yes Integumentary: Yes: Venous Stasis Changes Neurological: Yes: WNL, Alert, Oriented ...Motor Strength: WNL Psychiatric: Yes: WNL, Alert, Oriented Labs: CBC, BMP 06/02/19 08:11 ABG Results ABG pH 7.44 (7.35-7.45) 06/02/19 06:55 ABG pCO2 at Pt Temp 57.1 mmHg (35-45) H 06/02/19 06:55 ABG pO2 at Pt Temp 49.6 mmHg (80-100) L* 06/02/19 06:55 ABG HCO3 37.8 mmol/L (22-27) H 06/02/19 06:55 ABG O2 Sat (Measured) 85.1 % (95-98) L 06/02/19 06:55 ABG O2 Content 14.3 % vol 06/02/19 06:55 ABG Base Excess 11.7 meq/l (-2-2) H 06/02/19 06:55 Imaging - Results Chest X-ray: Report Reviewed, Image Reviewed (Elevated right hemidiaphragm) Problem List - Problems (1) Sleep apnea Code(s): G47.30 - SLEEP APNEA, UNSPECIFIED (2) Obesity hypoventilation syndrome Code(s): E66.2 - MORBID (SEVERE) OBESITY WITH ALVEOLAR HYPOVENTILATION (3) Chronic respiratory failure Code(s): J96.10 - CHRONIC RESPIRATORY FAILURE, UNSP W HYPOXIA OR HYPERCAPNIA (4) Hypoxemia requiring supplemental oxygen Code(s): R09.02 - HYPOXEMIA; Z99.81 - DEPENDENCE ON SUPPLEMENTAL OXYGEN (5) CHF (congestive heart failure) Code(s): I50.9 - HEART FAILURE, UNSPECIFIED Qualifiers: Heart failure type: unspecified Heart failure chronicity: acute on chronic Qualified Code(s): I50.9 - Heart failure, unspecified (6) Cellulitis Code(s): L03.90 - CELLULITIS, UNSPECIFIED Qualifiers: Site of cellulitis: extremity Site of cellulitis of extremity: lower extremity Laterality: left Qualified Code(s): L03.116 - Cellulitis of left lower limb (7) HTN (hypertension) Code(s): I10 - ESSENTIAL (PRIMARY) HYPERTENSION Qualifiers: Hypertension type: unspecified Qualified Code(s): I10 - Essential (primary ) hypertension Assessment/Plan IMP: Super super morbidly obese Will need formal sleep testing and titration after discharge. Patient would benefit from home NIPPV. Will need for arrange for home O2 due to resting hypoxemia No smoking Weight loss discussed ABX Local wound care VTE prophylaxis Thank you. Dr Segundo
[2019-06-02 09:57] LABS: BLOOD UREA NITROGEN 18.3 mg/dL (7-18); CALCIUM 8.9 mg/dL (8.5-10.1); CREATININE 1.1 mg/dL (0.55-1.3); POTASSIUM 3.5 mmol/L (3.5-5.1)
[2019-06-02] MEDS ORDERED: VENLAFAXINE HCL 75 MG TABLET PO SCH (10:00)
[2019-06-02] MEDS ORDERED: PT OWN MED DRAWER 7, Y5N ONE (10:54)
[2019-06-02] MEDS: amLODIPine BESYLATE 5 MG TABLET (FP) PO SCH (11:01)
[2019-06-02] MEDS: VALSARTAN 160 MG TABLET (UD) PO SCH (11:01)
[2019-06-02] MEDS: VENLAFAXINE HCL 75 MG TABLET PO SCH ×3 (11:01→22:26)
[2019-06-02 11:04] LABS: ERYTHROCYTE SEDIMENTATION RATE 51 mm/hr (0-30)
[2019-06-02] MEDS: PIPERACILLIN/TAZOB 3.375 GM 3.375 GM in DEXTROSE 5%-WATER - 50 ML IVPB SCH (11:14)
--- NOTE | 2019-06-02 16:13 | PN ---
Progress Note (short form) - Note Progress Note: s: no cp dizzy palps, sob improving. Current Medications Acetaminophen (Tylenol -) 650 mg PO Q6H PRN PRN Reason: Fever Or Pain Last Admin: 06/02/19 06:17 Dose: 650 mg Amlodipine Besylate (Norvasc -) 5 mg PO DAILY [facility] Last Admin: 06/02/19 11:01 Dose: 5 mg Furosemide (Lasix Injection -) 40 mg IVPUSH BIDLASIX [facility] Last Admin: 06/02/19 14:08 Dose: 40 mg Gabapentin (Neurontin -) 100 mg PO TID [facility] Last Admin: 06/02/19 14:08 Dose: Not Given Heparin Sodium (Porcine) (Heparin -) 5,000 unit SQ TID [facility] Last Admin: 06/02/19 14:09 Dose: 5,000 unit Cefepime HCl 1 gm/ Dextrose 100 mls @ 100 mls/hr IVPB Q8H-IV [facility]; Protocol Last Admin: 06/02/19 11:00 Dose: 100 mls/hr Insulin Aspart (Novolog Vial Sliding Scale -) 1 vial SQ ACHS [facility]; Protocol Last Admin: 06/02/19 11:42 Dose: Not Given Valsartan (Diovan -) 160 mg PO DAILY [facility] Last Admin: 06/02/19 11:01 Dose: 160 mg Venlafaxine HCl (Effexor -) 75 mg PO BID [facility] Last Admin: 06/02/19 11:12 Dose: Not Given Vital Signs Period Temp Pulse Resp BP Sys/Espinal Pulse Ox Last 24 Hr 98.0 F-99.4 F 74-102 20-20 119-141/43-95 95-97 Constitutional: Yes: No Distress Cardiovascular: Yes: Regular Rate and Rhythm Respiratory: Yes: Other (decreased breath sounds bases.) Gastrointestinal: Yes: Soft, Abdomen, Obese Edema: Yes Edema: LLE: 2+, RLE: 2+ Neurological: Yes: Alert no jaundice diaphoresis Assessment/Plan leg swelling, sob, Acute on chronic diastolic HF, with PHTN and some right sided CHF sx -BNP 1K (no priors), still with SOB and LE edema. -echo reviewed. -cont iv lasix -bp controlled -Daily weights and BMP to monitor renal fx HTN: -improved -cont amlodipine, valsartan DM: -A1c 7s -per hospitalist leg wounds: -per hospitalist team
--- NOTE | 2019-06-02 17:00 | PN ---
Physical Exam: SUBJECTIVE: Patient seen and examined at the bedside. Noted that her swelling and pain in her legs improved. Stated her appetite was good but she felt tired. Stated her breathing improved. Denied cp, abd pain, n/v/c/d, fevers, chills, headaches, dizziness, lightheadedness, numbness, tinging. OBJECTIVE: Vital Signs Period Temp Pulse Resp BP Sys/Espinal Pulse Ox Last 24 Hr 98.0 F-99.4 F 74-102 20-20 119-141/43-95 95-97 GENERAL: Awake, alert, and fully oriented, in no acute distress. Pleasant. HEAD: Normal with no signs of trauma. EYES: Pupils equal, round and reactive to light, extraocular movements intact. EARS, NOSE, THROAT: Oropharynx clear without exudates. Moist mucous membranes. NECK: Normal range of motion, supple without lymphadenopathy, JVD. LUNGS: Diminished significantly bilaterally. No wheezes, and no crackles. No accessory muscle use. HEART: Regular rate and rhythm, normal S1 and S2 with systolic ejection murmur. ABDOMEN: Nontender, distended and obese, normoactive bowel sounds, no guarding, no rebound, no masses. MUSCULOSKELETAL: Decreased range of motion on legs due to pain. LOWER EXTREMITIES: Poorly palpated pulses. Significant brown discoloration of skin up to ankles. L leg ulcer on the medial trevino and calf. Warm, tender to palpation. 2+ edema up to the knees. Reduced erythema. NEUROLOGICAL: Cranial nerves II-XII intact. 5/5 muscle strength bilaterally on upper extremities. 4/5 on the lower extremities, limited due to pain. PSYCHIATRIC: Cooperative. Good eye contact. Appropriate mood and affect. SKIN: Significant brown discoloration of skin up to ankles. L leg ulcer on the medial trevino and calf improved. Laboratory Results - last 24 hr 05/29/19 06/01/19 06/02/19 07:42 21:30 05:58 WBC RBC Hgb Hct MCV MCH MCHC RDW Plt Count MPV Absolute Neuts (auto) Neutrophils % Lymphocytes % Monocytes % Eosinophils % Basophils % Nucleated RBC % ESR Anticoagulation Therapy Puncture Site Patient Temperature ABG pH ABG pCO2 at Pt Temp ABG pO2 at Pt Temp ABG HCO3 ABG O2 Sat (Measured) ABG O2 Content ABG Base Excess Adam Test O2 Delivery Device Oxygen Flow Rate Vent Mode Vent Rate Mechanical Rate PEEP Pressure Support Vent Sodium Potassium Chloride Carbon Dioxide Anion Gap BUN Creatinine Est GFR (CKD-EPI)AfAm Est GFR (CKD-EPI)NonAf POC Glucometer 205 179 Random Glucose Calcium Magnesium C-Reactive Protein Hep A IgM Ab Confirm Negative Hepatitis A Ab Total Negative Hep Bs Antigen Negative Hep Bs Antibody Non reactive Hep B Core Total Ab Negative Hep B Core IgM Ab Negative Hepatitis Be Antibody Negative Hepatitis Be Antigen Negative 06/02/19 06/02/19 06/02/19 06:55 08:11 08:11 WBC 7.2 RBC 4.32 Hgb 12.2 Hct 37.6 MCV 87.1 MCH 28.2 MCHC 32.4 RDW 14.2 Plt Count 188 MPV 9.8 Absolute Neuts (auto) 5.1 Neutrophils % 71.0 Lymphocytes % 19.1 Monocytes % 7.5 Eosinophils % 1.9 Basophils % 0.5 Nucleated RBC % 0 ESR 51 H Anticoagulation Therapy Felt Cementer Puncture Site Right radial Patient Temperature Felt Cementer ABG pH 7.44 ABG pCO2 at Pt Temp 57.1 H ABG pO2 at Pt Temp 49.6 L* ABG HCO3 37.8 H ABG O2 Sat (Measured) 85.1 L ABG O2 Content 14.3 ABG Base Excess 11.7 H Adam Test Positive O2 Delivery Device Room air Oxygen Flow Rate No Vent Mode Felt Cementer Vent Rate Felt Cementer Mechanical Rate Felt Cementer PEEP Felt Cementer Pressure Support Vent Felt Cementer Sodium 140 Potassium 3.5 Chloride 97 L Carbon Dioxide 38 H Anion Gap 5 L BUN 18.3 H Creatinine 1.1 Est GFR (CKD-EPI)AfAm 60.16 Est GFR (CKD-EPI)NonAf 51.91 POC Glucometer Random Glucose 146 H Calcium 8.9 Magnesium 2.0 C-Reactive Protein 2.5 H Hep A IgM Ab Confirm Hepatitis A Ab Total Hep Bs Antigen Hep Bs Antibody Hep B Core Total Ab Hep B Core IgM Ab Hepatitis Be Antibody Hepatitis Be Antigen 06/02/19 11:39 WBC RBC Hgb Hct MCV MCH MCHC RDW Plt Count MPV Absolute Neuts (auto) Neutrophils % Lymphocytes % Monocytes % Eosinophils % Basophils % Nucleated RBC % ESR Anticoagulation Therapy Puncture Site Patient Temperature ABG pH ABG pCO2 at Pt Temp ABG pO2 at Pt Temp ABG HCO3 ABG O2 Sat (Measured) ABG O2 Content ABG Base Excess Adam Test O2 Delivery Device Oxygen Flow Rate Vent Mode Vent Rate Mechanical Rate PEEP Pressure Support Vent Sodium Potassium Chloride Carbon Dioxide Anion Gap BUN Creatinine Est GFR (CKD-EPI)AfAm Est GFR (CKD-EPI)NonAf POC Glucometer 176 Random Glucose Calcium Magnesium C-Reactive Protein Hep A IgM Ab Confirm Hepatitis A Ab Total Hep Bs Antigen Hep Bs Antibody Hep B Core Total Ab Hep B Core IgM Ab Hepatitis Be Antibody Hepatitis Be Antigen Active Medications Generic Name Dose Route Start Last Admin Trade Name Freq PRN Reason Stop Dose Admin Acetaminophen 650 mg 05/29/19 01:10 06/02/19 06:17 Tylenol - PO 650 mg Q6H PRN Administration Fever Or Pain Amlodipine Besylate 5 mg 05/29/19 20:45 06/02/19 11:01 Norvasc - PO 5 mg DAILY [facility] Administration Furosemide 40 mg 06/01/19 06:00 06/02/19 14:08 Lasix Injection - IVPUSH 40 mg BIDLASIX [facility] Administration Gabapentin 100 mg 05/30/19 14:00 06/02/19 14:08 Neurontin - PO Not Given TID [facility] Heparin Sodium (Porcine) 5,000 unit 05/29/19 06:00 06/02/19 14:09 Heparin - SQ 5,000 unit TID [facility] Administration Cefepime HCl 1 gm/ Dextrose 100 mls @ 100 mls/hr 06/01/19 18:00 06/02/19 11: 00 IVPB 100 mls/hr Q8H-IV [facility] Administration Protocol Insulin Aspart 1 vial 05/29/19 07:00 06/02/19 11:42 Novolog Vial Sliding Scale - SQ Not Given ACHS [facility] Protocol Valsartan 160 mg 05/30/19 11:45 06/02/19 11:01 Diovan - PO 160 mg DAILY [facility] Administration Venlafaxine HCl 75 mg 06/01/19 22:00 06/02/19 11:12 Effexor - PO Not Given BID [facility] ASSESSMENT/PLAN: Alysha Wagner is a 68 year old female with a past medical history of diabetes, hypertension, CHF, morbid obesity admitted for lower extremity cellulitis likely secondary to diabetes and lower extremity edema from CHF vs liver disease. Lower Extremity Wounds - extensive untreated wounds and chronic changes likely from DM, CHF, venous stasis - podiatry consulted, recs appreciated, no acute intervention, f/u with wound care - wound care consulted, recs appreciated, Alginate with EDWIGE wraps, f/u in wound care for lymphedema pump - ID consulted, recs appreciated - continue cefepime - patient noted her PCN allergy with reaction of shaking and minor itching, denies respiratory distress, angioedema, previous intubation. Currently no rash or any other evidence to suspect drug reaction. - Blood culture negative, will repeat in setting of low grade fever - wound cx with growth noting Pseudomonas fluorescens/putida, unlikely organisms causing infection - tib/fib x-rays with no indication of bony involvement - Tylenol, gabapentin, and venlafaxine for pain - Physical therapy, patient walked 3 feet, is agreeable to rehab - arterial duplex pending - ESR/CRP elevated, will continue to monitor to assess antibiotic effectiveness Edema/Ascites/SOB - echo noting mild concentric LVH, EF 65%, trace mitral regurg, mild tricuspid regurg, sever pulmonary HTN, RVH systolic pressure, mild aortic valve thickening - abd U/s with hepatosplenomegaly, cholelitiasis, no noted ascites - Hep panel negative - duplex with no DVT - keep feet elevated at night - IV Lasix 40mg bid for diuresis as per cardiology - salt and fluid restriction - daily weight - strict I+Os - cardiology consulted, recs appreciated - will require pre and post prior to discharge to assess need for oxygen - will get morning ABG to assess for obesity hypoventilation syndrome - respiratory consulted DM - ISS - BGM - A1c 7.2 - hold home diabetic meds HTN - continue home amlodipine Morbid Obesity - counseled on weight lost - dietary consult - ABG noting chronic hypercapneia with elevated bicarb, likely chronic obesity hypoventilation syndrome, will require pulm outpatient DVT PPx - Lovenox 40mg subq daily FEN - no standing fluids, caution with fluids in setting of edema - continue to monitor electrolytes and replete as necessary - sodium/diabetic diet Dispo - continue to monitor on Med-surg - agreeable to SNF placement Problem List - Problems (1) CHF (congestive heart failure) Code(s): I50.9 - HEART FAILURE, UNSPECIFIED Qualifiers: Heart failure type: unspecified Heart failure chronicity: acute on chronic Qualified Code(s): I50.9 - Heart failure, unspecified (2) Cellulitis Code(s): L03.90 - CELLULITIS, UNSPECIFIED Qualifiers: Site of cellulitis: extremity Site of cellulitis of extremity: lower extremity Laterality: left Qualified Code(s): L03.116 - Cellulitis of left lower limb (3) HTN (hypertension) Code(s): I10 - ESSENTIAL (PRIMARY) HYPERTENSION Qualifiers: Hypertension type: unspecified Qualified Code(s): I10 - Essential (primary ) hypertension Visit type - Emergency Visit Emergency Visit: Yes ED Registration Date: 05/28/19 Care time: The patient presented to the Emergency Department on the above date and was hospitalized for further evaluation of their emergent condition. - New Patient This patient is new to me today: No - Critical Care Critical Care patient: No
--- NOTE | 2019-06-02 19:26 | PN ---
Teaching Attending Note Name of Resident: Carlos Enrique Rivera ATTENDING PHYSICIAN STATEMENT I saw and evaluated the patient. I reviewed the resident's note and discussed the case with the resident. I agree with the resident's findings and plan as documented. Seen and examined; please see resident note for further historical information. I personally verified all [place] historical information and exam findings. Personally interpreted all imaging and diagnostics and reviewed appropriate consults. I reviewed all labs and vital signs as per resident note and EMR as documented. I agree with the above assessment and plan unless supplemented by myself in the following. please note that there was no antibiotic reaction. this was discussed at length with the patient for some time. She took augmentin aproximately 40 years ago when she had a viral illness and got a rash. Discussed with nursing/ etc. that this doesn't require any additional testing and that her tolerating 6 + doses of PNC abx as well as analogues alongside her clinical presentation. Spoke to patient at length regarding her perceived allergic reaction overnight. The patient tells me that she was told approximately 40 years ago that she was allergic to Augmentin after developing a rash for what sounds like treatment of a viral exanthem. She states that she never had anaphylaxis, her symptoms were constrained to itching of the legs around the area of the wounds which would actually be consistent of this symptom of the chronic lower extremity wound rather than an allergic reaction. No rash or systemic signs were observed. No anaphylaxis, etc. etc. I am informed by nursing infectious disease to discuss this with the patient as well and that this did not represent a true allergic reaction. 10 system review of systems completed and is negative aside from history of present illness VS, labs, imaging reviewed NAD, AAO, resting comfortably in bed. RRR s1/2 no mgr Normal muscle tone, moves all 5 extremities with normal apparent strength Neck is supple, trachea midline, no roger LN Lungs CTAB with sym expansion NT ND +BS no roger organomegaly CN2-12 wnl; no FND NC AT EOMI PERRLA Normal mood, appropriate behavior, euthymic affect Large lower extremities with dependent edema, wrapped. Symmetrical ulcerations. Microbiology 05/28/19 19:35 Leg - Left Lower Gram Stain - Final 05/28/19 19:35 Leg - Left Lower Wound Culture - Preliminary Pseudo Fluorescens/[place] Group D Strep Or Entero Coccus Staphylococcus Coagulase Neg 05/28/19 19:35 Blood - Peripheral Venous Blood Culture - Preliminary NO GROWTH OBTAINED AFTER 72 HOURS, INCUBATION TO CONTINUE FOR 2 DAYS. 05/28/19 19:35 Blood - Peripheral Venous Blood Culture - Preliminary NO GROWTH OBTAINED AFTER 72 HOURS, INCUBATION TO CONTINUE FOR 2 DAYS. Echocardiogram reviewed Chest x-ray reviewed Weights, ins and outs reviewed. Problems include: -Chronic lower extremity wounds, cellulitis versus arterial disease, wound healing is severely impaired. The patient is febrile and this is likely secondary to underlying infectious/inflammatory process, will need to obtain arterial Dopplers to elucidate if any underlying vascular disease; concerned that her underlying habitus will limit the utility of the aforementioned test. ESR/CRP pending. If underlying suspected etiology of PAD can consult vascular. Though lesions of peripheral arterial disease are not classically associated with acute infection, I must point out that her exquisitely poor wound healing secondary to her BMI would be implicated in contributing to lending this as a source of infection. Abx per ID, appreciate expert management. Will also mention that the LE cultures were superficiial and likely do not represent the acute source of infection. This opinion is also shared by ID; will change to cefepime per their service and discuss final course. -Acute on chronic diastolic CHF exacerbation, cardiology continues to follow. Monitor ins and O's, weights, on IV Lasix. -Suspected allergic reaction, not allergic reaction. Monitor, but very unlikely -History of hypertension, uncontrolled but improved. Continue amlodipine and valsartan and monitor renal function -Diabetes mellitus, A1c 7 -Suspected pickwickian syndrome, a.m. ABG. -Super morbid obesity. BMI is 64.5. Continue to counseling services manager, evaluate for JUNE and pickwickian. -Pulmonary HTN, per pulmonary. Will consult. Discuss any need for RHC with CV nonurgently at this juncture. DVT ppx reviewed
[2019-06-03] MEDS ORDERED: DEXTROSE 5%-WATER 100 ML IVPB ONE ×3 (02:37→17:31)
[2019-06-03] MEDS ORDERED: CEFEPIME HCL 1 GM VIAL (RESTRICTED TO ID) ONE ×3 (02:37→17:30)
[2019-06-03] MEDS: CEFEPIME 1 GM in DEXTROSE 5%-WATER 100 ML IVPB SCH ×3 (02:47→18:02)
--- NOTE | 2019-06-03 06:21 | PN ---
Physical Exam: SUBJECTIVE: Patient seen and examined at the bedside. She stated that she was doing well and only endorsed mild pain in the legs and a dry mouth. Denied cp, sob, abd pain, n/v/c/d, fever, chills, headaches, dizziness, lightheadedness, numbness, tingling, focal weakness. OBJECTIVE: Vital Signs Period Temp Pulse Resp BP Sys/Espinal Pulse Ox Last 24 Hr 98.0 F-98.6 F 74-102 20-20 119-136/43-85 95-95 GENERAL: Awake, alert, and fully oriented, in no acute distress. Pleasant. HEAD: Normal with no signs of trauma. EYES: Pupils equal, round and reactive to light, extraocular movements intact. EARS, NOSE, THROAT: Oropharynx clear without exudates. Moist mucous membranes. NECK: Normal range of motion, supple without lymphadenopathy, JVD. LUNGS: Diminished significantly bilaterally. No wheezes, and no crackles. No accessory muscle use. HEART: Regular rate and rhythm, normal S1 and S2 with systolic ejection murmur. ABDOMEN: Nontender, distended and obese, normoactive bowel sounds, no guarding, no rebound, no masses. MUSCULOSKELETAL: Normal range of motion of all extremities. LOWER EXTREMITIES: Poorly palpated pulses. Significant brown discoloration of skin up to ankles. L leg ulcer on the medial trevino and calf. Mildly tender to palpation. 2+ edema up to the knees. Reduced erythema. NEUROLOGICAL: Cranial nerves II-XII intact. 5/5 muscle strength bilaterally on upper extremities. 4/5 on the lower extremities, limited due to pain. PSYCHIATRIC: Cooperative. Good eye contact. Appropriate mood and affect. SKIN: Significant brown discoloration of skin up to ankles. L leg ulcer on the medial trevino and calf improved. Laboratory Results - last 24 hr 06/02/19 06/02/19 06/02/19 06:55 08:11 08:11 WBC 7.2 RBC 4.32 Hgb 12.2 Hct 37.6 MCV 87.1 MCH 28.2 MCHC 32.4 RDW 14.2 Plt Count 188 MPV 9.8 Absolute Neuts (auto) 5.1 Neutrophils % 71.0 Lymphocytes % 19.1 Monocytes % 7.5 Eosinophils % 1.9 Basophils % 0.5 Nucleated RBC % 0 ESR 51 H Anticoagulation Therapy [facility] Puncture Site Right radial Patient Temperature [facility] ABG pH 7.44 ABG pCO2 at Pt Temp 57.1 H ABG pO2 at Pt Temp 49.6 L* ABG HCO3 37.8 H ABG O2 Sat (Measured) 85.1 L ABG O2 Content 14.3 ABG Base Excess 11.7 H Adam Test Positive O2 Delivery Device Room air Oxygen Flow Rate No Vent Mode [facility] Vent Rate [facility] Mechanical Rate [facility] PEEP [facility] Pressure Support Vent [facility] Sodium 140 Potassium 3.5 Chloride 97 L Carbon Dioxide 38 H Anion Gap 5 L BUN 18.3 H Creatinine 1.1 Est GFR (CKD-EPI)AfAm 60.16 Est GFR (CKD-EPI)NonAf 51.91 POC Glucometer Random Glucose 146 H Calcium 8.9 Magnesium 2.0 C-Reactive Protein 2.5 H 06/02/19 06/02/19 06/02/19 11:39 17:11 22:24 WBC RBC Hgb Hct MCV MCH MCHC RDW Plt Count MPV Absolute Neuts (auto) Neutrophils % Lymphocytes % Monocytes % Eosinophils % Basophils % Nucleated RBC % ESR Anticoagulation Therapy Puncture Site Patient Temperature ABG pH ABG pCO2 at Pt Temp ABG pO2 at Pt Temp ABG HCO3 ABG O2 Sat (Measured) ABG O2 Content ABG Base Excess Adam Test O2 Delivery Device Oxygen Flow Rate Vent Mode Vent Rate Mechanical Rate PEEP Pressure Support Vent Sodium Potassium Chloride Carbon Dioxide Anion Gap BUN Creatinine Est GFR (CKD-EPI)AfAm Est GFR (CKD-EPI)NonAf POC Glucometer 176 171 169 Random Glucose Calcium Magnesium C-Reactive Protein Active Medications Generic Name Dose Route Start Last Admin Trade Name Freq PRN Reason Stop Dose Admin Acetaminophen 650 mg 05/29/19 01:10 06/02/19 06:17 Tylenol - PO 650 mg Q6H PRN Administration Fever Or Pain Amlodipine Besylate 5 mg 05/29/19 20:45 06/02/19 11:01 Norvasc - PO 5 mg DAILY CHANTE Administration Furosemide 40 mg 06/01/19 06:00 06/02/19 14:08 Lasix Injection - IVPUSH 40 mg BIDLASIX CHANTE Administration Gabapentin 100 mg 05/30/19 14:00 06/02/19 22:30 Neurontin - PO Not Given TID CHANTE Heparin Sodium (Porcine) 5,000 unit 05/29/19 06:00 06/02/19 22:27 Heparin - SQ 5,000 unit TID CHANTE Administration Cefepime HCl 1 gm/ Dextrose 100 mls @ 100 mls/hr 06/01/19 18:00 06/03/19 02: 47 IVPB 100 mls/hr Q8H-IV CHANTE Administration Protocol Insulin Aspart 1 vial 05/29/19 07:00 06/02/19 22:27 Novolog Vial Sliding Scale - SQ Not Given ACHS CHANTE Protocol Valsartan 160 mg 05/30/19 11:45 06/02/19 11:01 Diovan - PO 160 mg DAILY CHANTE Administration Venlafaxine HCl 75 mg 06/01/19 22:00 06/02/19 22:26 Effexor - PO Not Given BID CHANTE ASSESSMENT/PLAN: Alysha Wagner is a 68 year old female with a past medical history of diabetes, hypertension, CHF, morbid obesity admitted for lower extremity cellulitis likely secondary to diabetes and lower extremity edema from CHF vs liver disease. Lower Extremity Wounds - extensive untreated wounds and chronic changes likely from DM, CHF, venous stasis - podiatry consulted, recs appreciated, no acute intervention, f/u with wound care - wound care consulted, recs appreciated, Alginate with EDWIGE wraps, f/u in wound care for lymphedema pump - ID consulted, recs appreciated - continue cefepime, will deescalate as per ID - patient noted her PCN allergy with reaction of shaking and minor itching, denies respiratory distress, angioedema, previous intubation. Currently no rash or any other evidence to suspect drug reaction. - Blood cultures negative - wound cx with growth noting Pseudomonas fluorescens/putida, unlikely organisms causing infection - tib/fib x-rays with no indication of bony involvement - Tylenol, gabapentin, and venlafaxine for pain - Physical therapy, patient walked 3 feet, is agreeable to rehab - arterial duplex noting suggestive of moderate to severe atherosclerotic disease in the distal SFA or proximal politeal arteries. will likely need correlation with pre and post exercise SONIA with arterial doppler and velocity measurements of infrapopliteal arteries - ESR/CRP elevated, will continue to monitor to assess antibiotic effectiveness Edema/Ascites/SOB - echo noting mild concentric LVH, EF 65%, trace mitral regurg, mild tricuspid regurg, sever pulmonary HTN, RVH systolic pressure, mild aortic valve thickening - abd U/s with hepatosplenomegaly, cholelitiasis, no noted ascites - Hep panel negative - duplex with no DVT - keep feet elevated at night - IV Lasix 40mg bid for diuresis as per cardiology - salt and fluid restriction - daily weight - strict I+Os - cardiology consulted, recs appreciated - ABG noting chronic hypercapneia, likely obesity hypoventilation syndrome - respiratory consulted, pt will have home O2 due to resting hypoxemia DM - ISS - BGM - A1c 7.2 - hold home diabetic meds HTN - continue home amlodipine Morbid Obesity - counseled on weight lost - dietary consult - ABG noting chronic hypercapneia with elevated bicarb, likely chronic obesity hypoventilation syndrome, will require pulm outpatient DVT PPx - Lovenox 40mg subq daily FEN - no standing fluids, caution with fluids in setting of edema - continue to monitor electrolytes and replete as necessary - sodium/diabetic diet Dispo - continue to monitor on Med-surg - agreeable to SNF placement Problem List - Problems (1) CHF (congestive heart failure) Code(s): I50.9 - HEART FAILURE, UNSPECIFIED Qualifiers: Heart failure type: unspecified Heart failure chronicity: acute on chronic Qualified Code(s): I50.9 - Heart failure, unspecified (2) Cellulitis Code(s): L03.90 - CELLULITIS, UNSPECIFIED Qualifiers: Site of cellulitis: extremity Site of cellulitis of extremity: lower extremity Laterality: left Qualified Code(s): L03.116 - Cellulitis of left lower limb (3) HTN (hypertension) Code(s): I10 - ESSENTIAL (PRIMARY) HYPERTENSION Qualifiers: Hypertension type: unspecified Qualified Code(s): I10 - Essential (primary ) hypertension Visit type - Emergency Visit Emergency Visit: Yes ED Registration Date: 05/28/19 Care time: The patient presented to the Emergency Department on the above date and was hospitalized for further evaluation of their emergent condition. - New Patient This patient is new to me today: No - Critical Care Critical Care patient: No
[2019-06-03] MEDS: GABAPENTIN 100 MG CAPSULE (FP) PO SCH ×3 (06:50→21:38)
[2019-06-03] MEDS: HEPARIN NA (PORCINE) 5,000 UNITS/ML 1ML VIAL SQ SCH ×3 (06:57→22:21)
[2019-06-03] MEDS: INSULIN SLIDING SCALE (NOVOLOG) 1 VIAL SQ SCH ×4 (06:57→21:38)
[2019-06-03] MEDS: FUROSEMIDE 40 MG/4 ML INJECTABLE VIAL IVPUSH SCH ×2 (06:57→13:08)
[2019-06-03 09:07] LABS: BLOOD UREA NITROGEN 20.4 mg/dL (7-18); CALCIUM 8.8 mg/dL (8.5-10.1); MAGNESIUM 2.3 mg/dL (1.8-2.4); POTASSIUM 3.6 mmol/L (3.5-5.1)
--- NOTE | 2019-06-03 10:15 | PN ---
Teaching Attending Note Name of Resident: Carlos Enrique Rivera ATTENDING PHYSICIAN STATEMENT I saw and evaluated the patient. I reviewed the resident's note and discussed the case with the resident. I agree with the resident's findings and plan as documented. Seen and examined; please see resident note for further historical information. I personally verified all betancourt historical information and exam findings. Personally interpreted all imaging and diagnostics and reviewed appropriate consults. I reviewed all labs and vital signs as per resident note and EMR as documented. I agree with the above assessment and plan unless supplemented by myself in the following. No further complaints; imaging results noted. Following up final recs, determine final abx course. Starting to work on DC planning with SW. 10 sys ROS done and negative aside from HPI NAD, AAO, resting comfortably in bed. RRR s1/2 no mgr Normal muscle tone, moves all 5 extremities with normal apparent strength Neck is supple, trachea midline, no roger LN Lungs CTAB with sym expansion NT ND +BS no roger organomegaly CN2-12 wnl; no FND NC AT EOMI PERRLA Normal mood, appropriate behavior, euthymic affect Large lower extremities with dependent edema, wrapped. Symmetrical ulcerations. Microbiology 05/28/19 19:35 Leg - Left Lower Gram Stain - Final 05/28/19 19:35 Leg - Left Lower Wound Culture - Preliminary Pseudo Fluorescens/[place] Group D Strep Or Entero Coccus Staphylococcus Coagulase Neg 05/28/19 19:35 Blood - Peripheral Venous Blood Culture - Preliminary NO GROWTH OBTAINED AFTER 72 HOURS, INCUBATION TO CONTINUE FOR 2 DAYS. 05/28/19 19:35 Blood - Peripheral Venous Blood Culture - Preliminary NO GROWTH OBTAINED AFTER 72 HOURS, INCUBATION TO CONTINUE FOR 2 DAYS. Echocardiogram reviewed Chest x-ray reviewed Weights, ins and outs reviewed. Problems include: -Chronic lower extremity wounds, cellulitis versus arterial disease, wound healing is severely impaired. -PAD -Acute on chronic diastolic CHF exacerbation, cardiology continues to follow. Monitor ins and O's, weights, on IV Lasix. -Suspected allergic reaction, not allergic reaction. Monitor, but very unlikely -History of hypertension, uncontrolled but improved. Continue amlodipine and valsartan and monitor renal function -Diabetes mellitus, A1c 7 -Suspected pickwickian syndrome -Super morbid obesity. BMI is 64.5. Continue to breastfeeding peer counselor, evaluate for JUNE and pickwickian. -Pulmonary HTN, per pulmonary. Will consult. Discuss any need for RHC with CV nonurgently at this juncture. REMOVE PENNICILLIN ALLERGY FROM LIST FULL CODE
--- NOTE | 2019-06-03 10:35 | PN ---
Progress Note (short form) - Note Progress Note: PULMONARY RESTING COMFORTABLY VSS/AFEBRILE Constitutional: Yes: Calm, Obese Eyes: Yes: Conjunctiva Clear, EOM Intact HENT: Yes: Atraumatic, Normocephalic Neck: Yes: Supple, Trachea Midline Cardiovascular: Yes: Regular Rate and Rhythm Respiratory: Yes: Diminished, On Nasal O2, SOB on Exertion. No: Accessory Muscle Use, Rales, Rhonchi, SOB, Stridor, Tachypnea, Wheezes ...Inspection: Yes: WNL ...Clubbing: No Gastrointestinal: Yes: Normal Bowel Sounds, Soft, Abdomen, Obese Renal/: Yes: WNL Musculoskeletal: Yes: Back Pain Extremities: Yes: Other (chronic changes ) Edema: Yes Peripheral Pulses WNL: Yes Integumentary: Yes: Venous Stasis Changes Neurological: Yes: WNL, Alert, Oriented ...Motor Strength: WNL Psychiatric: Yes: WNL, Alert, Oriented Labs: REVIEWED Formal sleep testing and titration after discharge. Patient would benefit from home NIPPV. Will need for arrange for home O2 due to resting hypoxemia No smoking Weight loss discussed ABX Local wound care VTE prophylaxis Devante LECHUGA MD
--- NOTE | 2019-06-03 10:43 | PN ---
Progress Note, Physician Chief Complaint: no CP, no palps. No dizziness - Current Medication List Current Medications: Active Medications Acetaminophen (Tylenol -) 650 mg PO Q6H PRN PRN Reason: Fever Or Pain Last Admin: 06/02/19 06:17 Dose: 650 mg Amlodipine Besylate (Norvasc -) 5 mg PO DAILY [facility] Last Admin: 06/02/19 11:01 Dose: 5 mg Benzocaine/Menthol (Cepacol Lozenge -) 1 each MM Q4H PRN PRN Reason: SORE THROAT Furosemide (Lasix Injection -) 40 mg IVPUSH BIDLASIX [facility] Last Admin: 06/03/19 06:57 Dose: 40 mg Gabapentin (Neurontin -) 100 mg PO TID [facility] Last Admin: 06/03/19 06:50 Dose: Not Given Heparin Sodium (Porcine) (Heparin -) 5,000 unit SQ TID [facility] Last Admin: 06/03/19 06:57 Dose: 5,000 unit Cefepime HCl 1 gm/ Dextrose 100 mls @ 100 mls/hr IVPB Q8H-IV [facility]; Protocol Last Admin: 06/03/19 02:47 Dose: 100 mls/hr Insulin Aspart (Novolog Vial Sliding Scale -) 1 vial SQ ACHS [facility]; Protocol Last Admin: 06/03/19 06:57 Dose: Not Given Valsartan (Diovan -) 160 mg PO DAILY [facility] Last Admin: 06/02/19 11:01 Dose: 160 mg Venlafaxine HCl (Effexor -) 75 mg PO BID [facility] Last Admin: 06/02/19 22:26 Dose: Not Given - Objective Vital Signs: Vital Signs Temperature 98.6 F 06/03/19 06:19 Pulse Rate 79 06/03/19 06:19 Respiratory Rate 20 06/03/19 06:19 Blood Pressure 136/70 06/03/19 06:19 O2 Sat by Pulse Oximetry (%) 95 06/02/19 21:00 Constitutional: Yes: Calm Cardiovascular: Yes: Regular Rate and Rhythm Respiratory: Yes: Other (decreased breath sounds, no wheezing or rales.) Gastrointestinal: Yes: Soft, Abdomen, Obese Edema: Yes Edema: LLE: 1+, RLE: 1+ Neurological: Yes: Alert, Oriented Labs: CBC, BMP 06/02/19 08:11 06/03/19 07:30 INR, PTT INR 1.11 (0.83-1.09) H 05/28/19 19:35 Microbiology 06/02/19 08:11 Blood - Peripheral Venous Blood Culture - Preliminary NO GROWTH OBTAINED AFTER 24 HOURS, INCUBATION TO CONTINUE FOR 4 DAYS. 06/02/19 08:05 Blood - Peripheral Venous Blood Culture - Preliminary NO GROWTH OBTAINED AFTER 24 HOURS, INCUBATION TO CONTINUE FOR 4 DAYS. Laboratory Tests 06/01/19 06/02/19 06/03/19 14:00 08:11 07:30 WBC 7.2 Hgb 12.2 Plt Count 188 Sodium 139 Potassium 3.6 Creatinine 1.0 Magnesium 2.3 Influenza A (Rapid) Negative Influenza B (Rapid) Negative Assessment/Plan Assessment/Plan leg swelling, sob, Acute on chronic diastolic HF, with PHTN and some right sided CHF sx: -BNP 1K (no priors), still with SOB and LE edema. -echo reviewed. -cont iv lasix -bp controlled -Daily weights and BMP to monitor renal fx HTN: -improved -cont amlodipine, valsartan DM: -A1c 7s -per hospitalist leg wounds: -per hospitalist team Continue DVT prophylaxis as doing
[2019-06-03] MEDS: VALSARTAN 160 MG TABLET (UD) PO SCH (10:48)
[2019-06-03] MEDS: amLODIPine BESYLATE 5 MG TABLET (FP) PO SCH (10:48)
[2019-06-03] MEDS ORDERED: PT OWN MED DRAWER 7, Y5N ONE ×2 (10:51→23:52)
[2019-06-03] MEDS: BENZOCAINE/MENTH/CETYLPYRD CL 1 EACH LOZENGE MM PRN ×2 (10:54→23:52)
[2019-06-03] MEDS: VENLAFAXINE HCL 75 MG TABLET PO SCH ×2 (11:00→21:38)
[2019-06-03] MEDS: ACETAMINOPHEN 325 MG TABLET (FP) PO PRN ×2 (12:56→23:52)
[2019-06-03] MEDS: COLLAGENASE CLOSTRIDIUM HIST. 30 GRAMS TUBE TP SCH (13:08)
[2019-06-04] MEDS ORDERED: CEFEPIME HCL 1 GM VIAL (RESTRICTED TO ID) ONE ×3 (02:37→16:55)
[2019-06-04] MEDS ORDERED: DEXTROSE 5%-WATER 100 ML IVPB ONE ×3 (02:37→16:55)
[2019-06-04] MEDS: CEFEPIME 1 GM in DEXTROSE 5%-WATER 100 ML IVPB SCH ×3 (02:47→17:31)
[2019-06-04] MEDS ORDERED: PT OWN MED DRAWER 7, Y5N ONE (04:12)
[2019-06-04] MEDS: BENZOCAINE/MENTH/CETYLPYRD CL 1 EACH LOZENGE MM PRN ×2 (04:16→21:53)
[2019-06-04] MEDS: GABAPENTIN 100 MG CAPSULE (FP) PO SCH ×3 (06:51→21:53)
[2019-06-04] MEDS: INSULIN SLIDING SCALE (NOVOLOG) 1 VIAL SQ SCH ×4 (06:51→21:53)
[2019-06-04] MEDS: ACETAMINOPHEN 325 MG TABLET (FP) PO PRN ×3 (06:51→21:55)
[2019-06-04] MEDS: FUROSEMIDE 40 MG/4 ML INJECTABLE VIAL IVPUSH SCH ×2 (06:51→15:38)
[2019-06-04] MEDS: HEPARIN NA (PORCINE) 5,000 UNITS/ML 1ML VIAL SQ SCH ×3 (06:51→21:53)
[2019-06-04 08:45] LABS: BLOOD UREA NITROGEN 20.6 mg/dL (7-18); CALCIUM 8.8 mg/dL (8.5-10.1); CREATININE 0.9 mg/dL (0.55-1.3); MAGNESIUM 2.3 mg/dL (1.8-2.4); POTASSIUM 3.4 mmol/L (3.5-5.1)
[2019-06-04] MEDS: VALSARTAN 160 MG TABLET (UD) PO SCH (10:19)
[2019-06-04] MEDS: amLODIPine BESYLATE 5 MG TABLET (FP) PO SCH (10:19)
[2019-06-04] MEDS: VENLAFAXINE HCL 75 MG TABLET PO SCH ×2 (10:21→21:53)
[2019-06-04] MEDS: COLLAGENASE CLOSTRIDIUM HIST. 30 GRAMS TUBE TP SCH (10:21)
--- NOTE | 2019-06-04 13:54 | PN ---
Physical Exam: SUBJECTIVE: Patient seen and examined. She complains of right shoulder pain. OBJECTIVE: Vital Signs Period Temp Pulse Resp BP Sys/Espinal Pulse Ox Last 24 Hr 98.5 F-98.9 F 85-92 20-20 130-148/67-78 94 GENERAL: The patient is awake, alert, and fully oriented, in no acute distress. LUNGS: Breath sounds equal, clear to auscultation bilaterally, no wheezes, no crackles, no accessory muscle use. HEART: Regular rate and rhythm, S1, S2 without murmur, rub or gallop. ABDOMEN: Obese, soft, nontender, nondistended, normoactive bowel sounds, no guarding, no rebound, no hepatosplenomegaly, no masses. EXTREMITIES: 1+ edema, legs wrapped. MUSCULOSKELETAL: Right shoulder non-tender. Significantly decreased active and passive ROM secondary to pain. Laboratory Results - last 24 hr 06/03/19 06/03/19 06/04/19 17:18 21:36 06:23 Sodium Potassium Chloride Carbon Dioxide Anion Gap BUN Creatinine Est GFR (CKD-EPI)AfAm Est GFR (CKD-EPI)NonAf POC Glucometer 137 183 147 Random Glucose Calcium Magnesium 06/04/19 06/04/19 06:55 11:25 Sodium 140 Potassium 3.4 L Chloride 97 L Carbon Dioxide 37 H Anion Gap 5 L BUN 20.6 H Creatinine 0.9 Est GFR (CKD-EPI)AfAm 76.68 Est GFR (CKD-EPI)NonAf 66.16 POC Glucometer 189 Random Glucose 134 H Calcium 8.8 Magnesium 2.3 Active Medications Generic Name Dose Route Start Last Admin Trade Name Freq PRN Reason Stop Dose Admin Acetaminophen 650 mg 05/29/19 01:10 06/04/19 12:39 Tylenol - PO 650 mg Q6H PRN Administration Fever Or Pain Amlodipine Besylate 5 mg 05/29/19 20:45 06/04/19 10:19 Norvasc - PO 5 mg DAILY CHANTE Administration Benzocaine/Menthol 1 each 06/03/19 08:30 06/04/19 04:16 Cepacol Lozenge - MM 1 each Q4H PRN Administration SORE THROAT Collagenase 1 applic 06/03/19 11:15 06/04/19 10:21 Santyl - TP 1 applic DAILY CHANTE Administration Protocol Furosemide 40 mg 06/01/19 06:00 06/04/19 06:51 Lasix Injection - IVPUSH 40 mg BIDLASIX CHANTE Administration Gabapentin 100 mg 05/30/19 14:00 06/04/19 06:51 Neurontin - PO Not Given TID CHANTE Heparin Sodium (Porcine) 5,000 unit 05/29/19 06:00 06/04/19 06:51 Heparin - SQ 5,000 unit TID CHANTE Administration Cefepime HCl 1 gm/ Dextrose 100 mls @ 100 mls/hr 06/01/19 18:00 06/04/19 10: 18 IVPB 100 mls/hr Q8H-IV CHANTE Administration Protocol Insulin Aspart 1 vial 05/29/19 07:00 06/04/19 12:18 Novolog Vial Sliding Scale - SQ Not Given ACHS CHANTE Protocol Valsartan 160 mg 05/30/19 11:45 06/04/19 10:19 Diovan - PO 160 mg DAILY CHANTE Administration Venlafaxine HCl 75 mg 06/01/19 22:00 06/04/19 10:21 Effexor - PO Not Given BID CHANTE ASSESSMENT/PLAN: This is a 68 year old woman with a history of HTN, chronic diastolic heart failure, type 2 DM, morbid obesity who presented to the ED with bilateral leg wounds. 1. Venous ulcers of both legs - Continue cefepime, wound care with Santyl - Outpatient wound clinic follow-up 2. Acute on chronic diastolic heart failure - Continue Lasix IV 3. Chronic hypoxic respiratory failure secondary to obesity hypoventilation syndrome/JUNE - Outpatient sleep study - Will need home oxygen, CPAP 4. Right shoulder pain - Check x-rays - Consider ortho evaluation 5. HTN - Continue Norvasc, Diovan, Lasix 6. Type 2 DM - Continue Novolog sliding scale - HbA1c 7.2 - Resume glipizide at discharge 7. Morbid obesity with BMI 62.0 8. Hypokalemia - Replete potassium 9. Disposition - Plan for short-term rehab at discharge Visit type - Emergency Visit Emergency Visit: Yes ED Registration Date: 05/28/19 Care time: The patient presented to the Emergency Department on the above date and was hospitalized for further evaluation of their emergent condition. - New Patient This patient is new to me today: Yes Date on this admission: 06/04/19 - Critical Care Critical Care patient: No - Discharge Referral Referred to [facility] Med P.C.: No
[2019-06-04] MEDS ORDERED: POTASSIUM CHLORIDE TABS 20 MEQ TABLET.ER (FP) PO ONE (17:57)
[2019-06-04] MEDS ORDERED: INSULIN (NOVOLOG) ASPART 100 UNITS/ML 10ML VIAL ONE (21:22)
[2019-06-05] MEDS ORDERED: CEFEPIME HCL 1 GM VIAL (RESTRICTED TO ID) ONE ×4 (02:01→18:13)
[2019-06-05] MEDS ORDERED: DEXTROSE 5%-WATER 100 ML IVPB ONE ×4 (02:01→18:13)
[2019-06-05] MEDS: CEFEPIME 1 GM in DEXTROSE 5%-WATER 100 ML IVPB SCH ×3 (02:17→18:16)
[2019-06-05] MEDS: HEPARIN NA (PORCINE) 5,000 UNITS/ML 1ML VIAL SQ SCH ×3 (06:20→21:01)
[2019-06-05] MEDS: GABAPENTIN 100 MG CAPSULE (FP) PO SCH ×3 (06:20→21:01)
[2019-06-05] MEDS: FUROSEMIDE 40 MG/4 ML INJECTABLE VIAL IVPUSH SCH (06:20)
[2019-06-05] MEDS: INSULIN SLIDING SCALE (NOVOLOG) 1 VIAL SQ SCH ×4 (06:21→21:11)
[2019-06-05 07:39] LABS: BLOOD UREA NITROGEN 20.8 mg/dL (7-18); CALCIUM 8.7 mg/dL (8.5-10.1); MAGNESIUM 2.2 mg/dL (1.8-2.4); POTASSIUM 3.8 mmol/L (3.5-5.1)
--- NOTE | 2019-06-05 09:44 | PN ---
Teaching Attending Note Name of Resident: Carlos Enrique Rivera ATTENDING PHYSICIAN STATEMENT I saw and evaluated the patient. I reviewed the resident's note and discussed the case with the resident. I agree with the resident's findings and plan as documented. Seen and examined; please see resident note for further historical information. I personally verified all bet[place]ourt historical information and exam findings. Personally interpreted all imaging and diagnostics and reviewed appropriate consults. I reviewed all labs and vital signs as per resident note and EMR as documented. I agree with the above assessment and plan unless supplemented by myself in the following. Continues with cefepime and Santyl for the venous ulcers and will follow up with the outpatient wound clinic. She requires placement at SNF due to her deconditioning. She will need home oxygen and CPAP at therapy due to her underlying chronic hypoxic respiratory failure secondary to JUNE/pickwickian syndrome. VS labs imaging reviewed NAD, AAO, resting comfortably in bed. RRR s1/2 no mgr Normal muscle tone, moves all 5 extremities with normal apparent strength Neck is supple, trachea midline, no roger LN Lungs CTAB with sym expansion but limited exam given habitus NT ND +BS no roger organomegaly CN2-12 wnl; no FND NC AT EOMI PERRLA Normal mood, appropriate behavior, euthymic affect Large lower extremities with dependent edema, wrapped. Symmetrical ulcerations. ASSESSMENT AND PLAN: Patient presents for treatment of her chronic lower extremity wounds that likely are initially secondary to peripheral arterial disease that developed cellulitis secondary to her morbid obesity complicating wound healing. She has an element of CHF and we are monitoring her I's and O's and she continues on IV Lasix. She will will require outpatient evaluation for pickwickian syndrome as well as dietary consult. Sugars have been stable. Continue to follow the medicine service Problems include: -Chronic lower extremity wounds, cellulitis versus arterial disease, wound healing is severely impaired. -PAD -Acute on chronic diastolic CHF exacerbation, cardiology continues to follow. Monitor ins and O's, weights, on IV Lasix. -Suspected allergic reaction, not allergic reaction. Monitor, but very unlikely -History of hypertension, uncontrolled but improved. Continue amlodipine and valsartan and monitor renal function -Diabetes mellitus, A1c 7 -Suspected pickwickian syndrome -Super morbid obesity. BMI is 64.5. Continue to marriage and family counselor, evaluate for JUNE and pickwickian. -Pulmonary HTN, per pulmonary. Will consult. Discuss any need for RHC with CV nonurgently at this juncture. REMOVE PENNICILLIN ALLERGY FROM LIST FULL CODE
[2019-06-05] MEDS: amLODIPine BESYLATE 5 MG TABLET (FP) PO SCH (09:55)
[2019-06-05] MEDS: VALSARTAN 160 MG TABLET (UD) PO SCH (09:55)
[2019-06-05] MEDS: VENLAFAXINE HCL 75 MG TABLET PO SCH ×2 (10:35→21:03)
[2019-06-05] MEDS: COLLAGENASE CLOSTRIDIUM HIST. 30 GRAMS TUBE TP SCH (13:59)
[2019-06-05] MEDS: FUROSEMIDE 40 MG TABLET (FP) PO SCH (13:59)
--- NOTE | 2019-06-05 14:01 | PN ---
Physical Exam: SUBJECTIVE: Patient seen and examined at the bedside. States she feels good. Endorses R shoulder pain. States her breathing is improved and her leg swelling is improved. Denies cp, abd pain, n/v/c/d, headaches, dizziness, lightheadedness , fever, chills. OBJECTIVE: Vital Signs Period Temp Pulse Resp BP Sys/Espinal Pulse Ox Last 24 Hr 98.5 F-98.9 F 72-82 20-21 114-160/52-90 96-96 GENERAL: Awake, alert, and fully oriented, in no acute distress. Pleasant. HEAD: Normal with no signs of trauma. EYES: Pupils equal, round and reactive to light, extraocular movements intact. EARS, NOSE, THROAT: Oropharynx clear without exudates. Moist mucous membranes. NECK: Normal range of motion, supple without lymphadenopathy, JVD. LUNGS: Diminished significantly bilaterally. No wheezes, and no crackles. No accessory muscle use. HEART: Regular rate and rhythm, normal S1 and S2 with systolic ejection murmur. ABDOMEN: Nontender, distended and obese, normoactive bowel sounds, no guarding, no rebound, no masses. MUSCULOSKELETAL: Normal range of motion of all extremities. UPPER EXTREMITY: mild swelling of R hand after IV placement. Mild painful range of motion of R shoulder LOWER EXTREMITIES: Poorly palpated pulses. Significant brown discoloration of skin up to ankles. L leg ulcer on the medial trevino and calf. 2+ edema up to the knees. Reduced erythema. NEUROLOGICAL: Cranial nerves II-XII intact. 5/5 muscle strength bilaterally on upper extremities. 4/5 on the lower extremities, limited due to pain. PSYCHIATRIC: Cooperative. Good eye contact. Appropriate mood and affect. SKIN: Significant brown discoloration of skin up to ankles. L leg ulcer on the medial trevino and calf improved. Laboratory Results - last 24 hr 06/04/19 06/04/19 06/05/19 16:47 21:51 06:15 Sodium 139 Potassium 3.8 Chloride 97 L Carbon Dioxide 39 H Anion Gap 4 L BUN 20.8 H Creatinine 1.0 Est GFR (CKD-EPI)AfAm 67.51 Est GFR (CKD-EPI)NonAf 58.25 POC Glucometer 172 155 Random Glucose 144 H Calcium 8.7 Magnesium 2.2 06/05/19 06/05/19 06:20 10:57 Sodium Potassium Chloride Carbon Dioxide Anion Gap BUN Creatinine Est GFR (CKD-EPI)AfAm Est GFR (CKD-EPI)NonAf POC Glucometer 130 149 Random Glucose Calcium Magnesium Active Medications Generic Name Dose Route Start Last Admin Trade Name Freq PRN Reason Stop Dose Admin Acetaminophen 650 mg 05/29/19 01:10 06/04/19 21:55 Tylenol - PO 650 mg Q6H PRN Administration Fever Or Pain Amlodipine Besylate 5 mg 05/29/19 20:45 06/05/19 09:55 Norvasc - PO 5 mg DAILY [facility] Administration Benzocaine/Menthol 1 each 06/03/19 08:30 06/04/19 21:53 Cepacol Lozenge - MM 1 each Q4H PRN Administration SORE THROAT Collagenase 1 applic 06/03/19 11:15 06/04/19 10:21 Santyl - TP 1 applic DAILY [facility] Administration Protocol Furosemide 40 mg 06/05/19 14:00 Lasix - PO BID@0600,1400 [facility] Gabapentin 100 mg 05/30/19 14:00 06/05/19 06:20 Neurontin - PO Not Given TID [facility] Heparin Sodium (Porcine) 5,000 unit 05/29/19 06:00 06/05/19 06:20 Heparin - SQ 5,000 unit TID [facility] Administration Cefepime HCl 1 gm/ Dextrose 100 mls @ 100 mls/hr 06/01/19 18:00 06/05/19 09: 55 IVPB 100 mls/hr Q8H-IV [facility] Administration Protocol Insulin Aspart 1 vial 05/29/19 07:00 06/05/19 11:23 Novolog Vial Sliding Scale - SQ Not Given ACHS [facility] Protocol Valsartan 160 mg 05/30/19 11:45 06/05/19 09:55 Diovan - PO 160 mg DAILY [facility] Administration Venlafaxine HCl 75 mg 06/01/19 22:00 06/05/19 10:35 Effexor - PO Not Given BID [facility] ASSESSMENT/PLAN: Alysha Wagner is a 68 year old female with a past medical history of diabetes, hypertension, CHF, morbid obesity admitted for lower extremity cellulitis likely secondary to diabetes and lower extremity edema from CHF vs liver disease. Lower Extremity Wounds - extensive untreated wounds and chronic changes likely from DM, CHF, venous stasis - podiatry consulted, recs appreciated, no acute intervention, f/u with wound care - wound care consulted, recs appreciated, Alginate with EDWIGE wraps, f/u in wound care for lymphedema pump - ID consulted, recs appreciated - continue cefepime, will deescalate as per ID - patient noted her PCN allergy with reaction of shaking and minor itching, denies respiratory distress, angioedema, previous intubation. Currently no rash or any other evidence to suspect drug reaction. - Blood cultures negative - wound cx with growth noting Pseudomonas fluorescens/putida, unlikely organisms causing infection - tib/fib x-rays with no indication of bony involvement - Tylenol, gabapentin, and venlafaxine for pain - Physical therapy, patient walked 3 feet, is agreeable to rehab - arterial duplex noting suggestive of moderate to severe atherosclerotic disease in the distal SFA or proximal politeal arteries. will likely need correlation with pre and post exercise SONIA with arterial doppler and velocity measurements of infrapopliteal arteries. will f/u with outpatient vasclar surgery - ESR/CRP elevated, will reassess tomorrow to note antibiotic effectiveness Edema/Ascites/SOB - echo noting mild concentric LVH, EF 65%, trace mitral regurg, mild tricuspid regurg, sever pulmonary HTN, RVH systolic pressure, mild aortic valve thickening - abd U/s with hepatosplenomegaly, cholelitiasis, no noted ascites - Hep panel negative - duplex with no DVT - keep feet elevated at night - PO Lasix 40mg bid for diuresis - salt and fluid restriction - daily weight - strict I+Os - cardiology consulted, recs appreciated - ABG noting chronic hypercapneia, likely obesity hypoventilation syndrome - respiratory consulted, pt will have home O2 due to resting hypoxemia R shoulder Pain - shoulder x-ray without acute fracture - endorsed that pain is chronic, no acute trauma or worsening in the hospital - if worsens while inpatient, may consider ortho eval, otherwise follow up outpatient DM - ISS - BGM - A1c 7.2 - hold home diabetic meds HTN - continue home amlodipine Morbid Obesity - counseled on weight lost - dietary consult - ABG noting chronic hypercapneia with elevated bicarb, likely chronic obesity hypoventilation syndrome, will require pulm outpatient - will require outpatient sleep study DVT PPx - Lovenox 40mg subq daily FEN - no standing fluids, caution with fluids in setting of edema - continue to monitor electrolytes and replete as necessary - sodium/diabetic diet Dispo - continue to monitor on Med-surg - agreeable to SNF placement Problem List - Problems (1) CHF (congestive heart failure) Code(s): I50.9 - HEART FAILURE, UNSPECIFIED Qualifiers: Heart failure type: unspecified Heart failure chronicity: acute on chronic Qualified Code(s): I50.9 - Heart failure, unspecified (2) Cellulitis Code(s): L03.90 - CELLULITIS, UNSPECIFIED Qualifiers: Site of cellulitis: extremity Site of cellulitis of extremity: lower extremity Laterality: left Qualified Code(s): L03.116 - Cellulitis of left lower limb (3) HTN (hypertension) Code(s): I10 - ESSENTIAL (PRIMARY) HYPERTENSION Qualifiers: Hypertension type: unspecified Qualified Code(s): I10 - Essential (primary ) hypertension Visit type - Emergency Visit Emergency Visit: Yes ED Registration Date: 05/28/19 Care time: The patient presented to the Emergency Department on the above date and was hospitalized for further evaluation of their emergent condition. - New Patient This patient is new to me today: No - Critical Care Critical Care patient: No
[2019-06-05] MEDS: ACETAMINOPHEN 325 MG TABLET (FP) PO PRN (21:03)
[2019-06-05] MEDS: BENZOCAINE/MENTH/CETYLPYRD CL 1 EACH LOZENGE MM PRN (21:03)
[2019-06-06] MEDS: CEFEPIME 1 GM in DEXTROSE 5%-WATER 100 ML IVPB SCH ×2 (03:00→11:18)
[2019-06-06] MEDS ORDERED: CEFEPIME HCL 1 GM VIAL (RESTRICTED TO ID) ONE ×2 (03:25→11:15)
[2019-06-06] MEDS ORDERED: DEXTROSE 5%-WATER 100 ML IVPB ONE ×2 (03:25→11:15)
[2019-06-06] MEDS ORDERED: MAG HYDROX/AL HYDROX/SIMETH 30 ML UNIT-DOSE CUP PO ONE (04:43)
[2019-06-06] MEDS: HEPARIN NA (PORCINE) 5,000 UNITS/ML 1ML VIAL SQ SCH ×3 (05:01→21:24)
[2019-06-06] MEDS: FUROSEMIDE 40 MG TABLET (FP) PO SCH ×2 (05:01→14:31)
[2019-06-06] MEDS: GABAPENTIN 100 MG CAPSULE (FP) PO SCH ×3 (05:02→21:24)
[2019-06-06] MEDS: INSULIN SLIDING SCALE (NOVOLOG) 1 VIAL SQ SCH ×4 (06:30→21:25)
[2019-06-06] MEDS: ACETAMINOPHEN 325 MG TABLET (FP) PO PRN ×2 (06:37→18:47)
[2019-06-06 08:20] LABS: BASO % 0.4 % (0-2.0); EOS % 2.2 % (0-4.5); HEMATOCRIT 35.5 % (32.4-45.2); HEMOGLOBIN 11.8 GM/dL (10.7-15.3); LYMPH % 16.8 % (8-40); MCH 28.9 pg (25.7-33.7); MCHC 33.2 g/dl (32.0-36.0); MEAN PLT VOLUME 10.1 fl (7.5-11.1); MONO % 5.9 % (3.8-10.2); NEUT % 74.7 % (42.8-82.8); PLATELET COUNT 164 K/MM3 (134-434); RBC 4.08 M/mm3 (3.60-5.2); RDW 14.4 % (11.6-15.6); WHITE BLOOD COUNT 6.6 K/mm3 (4.0-10.0)
[2019-06-06 09:22] LABS: CALCIUM 8.6 mg/dL (8.5-10.1)
--- NOTE | 2019-06-06 10:36 | PN ---
Teaching Attending Note Name of Resident: Gian To ATTENDING PHYSICIAN STATEMENT I saw and evaluated the patient. I reviewed the resident's note and discussed the case with the resident. I agree with the resident's findings and plan as documented. Pain controlled; no new complaints. Continuing to trend labs as OP. Trilogy device being set up at the facility. Discharge cleared with cardiology, Dr. Riddle the patient will be discharged on amlodipine for valsartan and can continue on p.o. Lasix. Cleared the case with infectious disease, they state that the patient may be able to be discharged without antibiotics and with close follow-up with wound care and vascular surgery. Renal function is stable with her creatinine being 1.0 today without any spikes through the hospitalization. Her CRP and ESR are elevated but this is likely secondary to ongoing inflammatory changes due to the peripheral vascular disease and associated inflammation. [facility] to [facility] and she will be discharged today. Ideally she should have her glipizide switched to a non-sulfonylurea agent as an outpatient, furthermore she will require close follow-up for her diabetic, hypertensive, etc. etc. care. She is not on metformin as an outpatient is not clear why and I would recommend this be started as an outpatient but was not started on discharge was to not augment the patient's renal function without known onboard plan from primary. Seen by pulmonary medicine today who recommend outpatient PFTs and an PSG which is appropriate. Examination is stable with body habitus limiting respiratory auscultation but without any roger consolidations. Leg wounds have improved and are nontender to palpation, no weeping. She has palpable lower extremity pulses bilaterally. She is able to move all 4 extremities. She has benefited maximally from this hospitalization would derive no clear benefit from additional inpatient days. Agree with discharge planning as outlined in resident note
--- NOTE | 2019-06-06 10:55 | PN ---
Progress Note (short form) - Note Progress Note: PULMONARY States breathing is improving. Less cough. Able to ambulate to bathroom. Vital Signs Period Temp Pulse Resp BP Sys/Espinal Pulse Ox Last 24 Hr 98.4 F-99.4 F 72-80 20-20 113-152/58-81 96 Gen: NAD at rest Heart: RRR Lung: decreased breath sounds at the bases Abd: soft, nontender, obese Ext: wrapped CBC, BMP 06/06/19 07:25 06/06/19 07:25 Active Medications Acetaminophen (Tylenol -) 650 mg PO Q6H PRN PRN Reason: Fever Or Pain Last Admin: 06/06/19 06:37 Dose: 650 mg Amlodipine Besylate (Norvasc -) 5 mg PO DAILY [facility] Last Admin: 06/05/19 09:55 Dose: 5 mg Benzocaine/Menthol (Cepacol Lozenge -) 1 each MM Q4H PRN PRN Reason: SORE THROAT Last Admin: 06/05/19 21:03 Dose: 1 each Collagenase (Santyl -) 1 applic TP DAILY [facility]; Protocol Last Admin: 06/05/19 13:59 Dose: 1 applic Furosemide (Lasix -) 40 mg PO BID@0600,1400 [facility] Last Admin: 06/06/19 05:01 Dose: 40 mg Gabapentin (Neurontin -) 100 mg PO TID [facility] Last Admin: 06/06/19 05:02 Dose: Not Given Heparin Sodium (Porcine) (Heparin -) 5,000 unit SQ TID [facility] Last Admin: 06/06/19 05:01 Dose: 5,000 unit Cefepime HCl 1 gm/ Dextrose 100 mls @ 100 mls/hr IVPB Q8H-IV [facility]; Protocol Last Admin: 06/06/19 03:00 Dose: 100 mls/hr Insulin Aspart (Novolog Vial Sliding Scale -) 1 vial SQ ACHS [facility]; Protocol Last Admin: 06/06/19 06:30 Dose: Not Given Valsartan (Diovan -) 160 mg PO DAILY [facility] Last Admin: 06/05/19 09:55 Dose: 160 mg Venlafaxine HCl (Effexor -) 75 mg PO BID [facility] Last Admin: 06/05/19 21:03 Dose: Not Given A/P Cellulitis Acute on Chronic Diastolic Heart Failure 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
[2019-06-06] MEDS ORDERED: PT OWN MED DRAWER 7, Y5N ONE ×2 (11:14→21:17)
[2019-06-06] MEDS: amLODIPine BESYLATE 5 MG TABLET (FP) PO SCH (11:17)
[2019-06-06] MEDS: VALSARTAN 160 MG TABLET (UD) PO SCH (11:17)
[2019-06-06] MEDS: VENLAFAXINE HCL 75 MG TABLET PO SCH ×2 (11:22→21:24)
[2019-06-06] MEDS: COLLAGENASE CLOSTRIDIUM HIST. 30 GRAMS TUBE TP SCH (11:26)
--- NOTE | 2019-06-06 16:01 | PN ---
Progress Note (short form) - Note Progress Note: notes chronic legs pains since she started having trouble with her legs last May less pain starting to ambulate no SOB reports allergy to penicillins, augmentin, ceclor Vital Signs Period Temp Pulse Resp BP Sys/Espinal Pulse Ox Last 24 Hr 98.3 F-99.4 F 72-79 20-20 113-152/58-81 96 cor-rrr lungs clear abd soft,nt ext less edema and swelling, wounds are shallow , minimal serous drainage Microbiology 06/02/19 08:11 Blood - Peripheral Venous Blood Culture - Preliminary NO GROWTH OBTAINED AFTER 96 HOURS, INCUBATION TO CONTINUE FOR 1 DAYS. 06/02/19 08:05 Blood - Peripheral Venous Blood Culture - Preliminary NO GROWTH OBTAINED AFTER 96 HOURS, INCUBATION TO CONTINUE FOR 1 DAYS. 05/28/19 19:35 Leg - Left Lower Gram Stain - Final 05/28/19 19:35 Leg - Left Lower Wound Culture - Final Pseudo Fluorescens/Putida Enterococcus Faecium Staphylococcus Coagulase Neg 05/28/19 19:35 Blood - Peripheral Venous Blood Culture - Final NO GROWTH AFTER 5 DAYS INCUBATION 05/28/19 19:35 Blood - Peripheral Venous Blood Culture - Final NO GROWTH AFTER 5 DAYS INCUBATION CBC, BMP 06/06/19 07:25 06/06/19 07:25 a/p day #9 antibiotics erythema has improved no purulent drainage can d/c antibiotics and observe continue local care per wound care doctor patient agreeable to snf for rehab and wound care
--- NOTE | 2019-06-06 16:26 | DS ---
Physical Exam: SUBJECTIVE: Patient seen and examined. Pt appears to be improved. No overnight issues, c/o of fevers. Asymptomatic and afebrile. Leg wounds have improved and are nontender to palpation, no weeping. Denies f/c/n/v/d/sob,chest pain. OBJECTIVE: Vital Signs Period Temp Pulse Resp BP Sys/Espinal Pulse Ox Last 24 Hr 98.3 F-99.4 F 72-79 20-20 113-152/58-81 96 PHYSICAL EXAM GENERAL: The patient is awake, alert, and fully oriented, in no acute distress. EYES: PERRL, extraocular movements intact, ENT: moist mucous membranes. NECK: Trachea midline, full range of motion, supple. LUNGS: Breath sounds equal, clear to auscultation bilaterally, no wheezes, no crackles HEART: Regular rate and rhythm, S1, S2 without murmur, rub or gallop. ABDOMEN: Soft, nontender, moderately distended, normoactive bowel sounds, no guarding, no rebound EXTREMITIES: b/l LE swelling and chronic venous changes noted. Left LE w/ 5x6 wound in the anterior LE. Right 4x5 wound in the posterior LE wiht surround cellulitis. NEUROLOGICAL: Normal speech, gait not observed. SKIN: Warm, dry, LABS Laboratory Results - last 24 hr CBC,CMP WBC 6.6 K/mm3 (4.0-10.0) 06/06/19 07:25 RBC 4.08 M/mm3 (3.60-5.2) 06/06/19 07:25 Hgb 11.8 GM/dL (10.7-15.3) 06/06/19 07:25 Hct 35.5 % (32.4-45.2) 06/06/19 07:25 MCV 87.0 fl (80-96) 06/06/19 07:25 MCH 28.9 pg (25.7-33.7) 06/06/19 07:25 MCHC 33.2 g/dl (32.0-36.0) 06/06/19 07:25 RDW 14.4 % (11.6-15.6) 06/06/19 07:25 Plt Count 164 K/MM3 (134-434) 06/06/19 07:25 MPV 10.1 fl (7.5-11.1) 06/06/19 07:25 Absolute Neuts (auto) 4.9 K/mm3 (1.5-8.0) 06/06/19 07:25 Neutrophils % 74.7 % (42.8-82.8) 06/06/19 07:25 Lymphocytes % 16.8 % (8-40) 06/06/19 07:25 Monocytes % 5.9 % (3.8-10.2) 06/06/19 07:25 Eosinophils % 2.2 % (0-4.5) 06/06/19 07:25 Basophils % 0.4 % (0-2.0) 06/06/19 07:25 Nucleated RBC % 0 % (0-0) 06/06/19 07:25 ESR 56 mm/hr (0-30) H 06/06/19 07:25 Sodium 140 mmol/L (136-145) 06/06/19 07:25 Potassium 4.0 mmol/L (3.5-5.1) 06/06/19 07:25 Chloride 97 mmol/L (98-107) L 06/06/19 07:25 Carbon Dioxide 40 mmol/L (21-32) H 06/06/19 07:25 Anion Gap 3 MMOL/L (8-16) L 06/06/19 07:25 BUN 25.0 mg/dL (7-18) H 06/06/19 07:25 Creatinine 1.0 mg/dL (0.55-1.3) 06/06/19 07:25 Est GFR (CKD-EPI)AfAm 67.51 06/06/19 07:25 Est GFR (CKD-EPI)NonAf 58.25 06/06/19 07:25 POC Glucometer 129 UNITS (80-120) 06/06/19 16:59 Random Glucose 114 mg/dL (74-106) H 06/06/19 07:25 Hemoglobin A1c % 7.2 % (4.2-6.3) H 05/29/19 07:54 Calcium 8.6 mg/dL (8.5-10.1) 06/06/19 07:25 Phosphorus 3.6 mg/dL (2.5-4.9) 05/29/19 07:54 Magnesium 2.0 mg/dL (1.8-2.4) 06/06/19 07:25 Total Bilirubin 0.5 mg/dL (0.2-1) 05/29/19 07:54 AST 19 U/L (15-37) 05/29/19 07:54 ALT 21 U/L (13-61) 05/29/19 07:54 Alkaline Phosphatase 121 U/L (45-117) H 05/29/19 07:54 C-Reactive Protein 3.9 MG/DL (0.00-0.3) H 06/06/19 07:25 B-Natriuretic Peptide 1007.7 pg/ml (5-125) H 05/28/19 19:35 Total Protein 7.2 g/dl (6.4-8.2) 05/29/19 07:54 Albumin 3.5 g/dl (3.4-5.0) 05/29/19 07:54 Current Medications Acetaminophen (Tylenol -) 650 mg PO Q6H PRN PRN Reason: Fever Or Pain Last Admin: 06/06/19 06:37 Dose: 650 mg Amlodipine Besylate (Norvasc -) 5 mg PO DAILY [facility] Last Admin: 06/06/19 11:17 Dose: 5 mg Benzocaine/Menthol (Cepacol Lozenge -) 1 each MM Q4H PRN PRN Reason: SORE THROAT Last Admin: 06/05/19 21:03 Dose: 1 each Collagenase (Santyl -) 1 applic TP DAILY [facility]; Protocol Last Admin: 06/06/19 11:26 Dose: 1 applic Furosemide (Lasix -) 40 mg PO BID@0600,1400 [facility] Last Admin: 06/06/19 14:31 Dose: Not Given Gabapentin (Neurontin -) 100 mg PO TID [facility] Last Admin: 06/06/19 14:32 Dose: Not Given Heparin Sodium (Porcine) (Heparin -) 5,000 unit SQ TID [facility] Last Admin: 06/06/19 14:31 Dose: Not Given Insulin Aspart (Novolog Vial Sliding Scale -) 1 vial SQ ACHS [facility]; Protocol Last Admin: 06/06/19 12:12 Dose: Not Given Valsartan (Diovan -) 160 mg PO DAILY [facility] Last Admin: 06/06/19 11:17 Dose: 160 mg Venlafaxine HCl (Effexor -) 75 mg PO BID [facility] Last Admin: 06/06/19 11:22 Dose: Not Given Microbiology 06/02/19 08:11 Blood - Peripheral Venous Blood Culture - Preliminary NO GROWTH OBTAINED AFTER 96 HOURS, INCUBATION TO CONTINUE FOR 1 DAYS. 06/02/19 08:05 Blood - Peripheral Venous Blood Culture - Preliminary NO GROWTH OBTAINED AFTER 96 HOURS, INCUBATION TO CONTINUE FOR 1 DAYS. 05/28/19 19:35 Leg - Left Lower Gram Stain - Final 05/28/19 19:35 Leg - Left Lower Wound Culture - Final Pseudo Fluorescens/Putida Enterococcus Faecium Staphylococcus Coagulase Neg 05/28/19 19:35 Blood - Peripheral Venous Blood Culture - Final NO GROWTH AFTER 5 DAYS INCUBATION 05/28/19 19:35 Blood - Peripheral Venous Blood Culture - Final NO GROWTH AFTER 5 DAYS INCUBATION HOSPITAL COURSE: 68 y/o F, with a past medical history of diabetes, hypertension, CHF, morbid obesity admitted for chronic LE wounds w/ 2/2 PAD that has developed cellulitis , which is consistent with pt's risk factor including obesity and DM. Pt was started on Vanc and zosyn, then switched to Cefepime Q8H. Her EKG at the time showed sinus tachcardia, PACs and LAE and CXR showed cardiomegaly, elevated right hemidiaphragm, blunted left costophrenic angle and increased interstitial markings. She was given IV lasix and ECHO noting mild concentric LVH, EF 65%, trace mitral regurg, mild tricuspid regurg, sever pulmonary HTN, RVH systolic pressure, mild aortic valve thickening. Her symptoms began to improve after abx tx. She was cleared by cardiology and ID to be discharged after completion of her Abx. She was discharged home on valsartan, amlodipine, PO lasix and recommended close follow-up with wound care and vascular surgery. She will also need outpt f/u of ESR and CRP levels, pulmonary outpatient PFTs and an PSG. She was set up at home with a Trelegy device. [facility] and she will be discharged today. EKG showed sinus tachcardia, PACs and LAE CXR showed cardiomegaly, elevated right hemidiaphragm, blunted left costophrenic angle and increased interstitial markings. ECHO noting mild concentric LVH, EF 65%, trace mitral regurg, mild tricuspid regurg, sever pulmonary HTN, RVH systolic pressure, mild aortic valve thickening. U/s with hepatosplenomegaly, cholelitiasis, no noted ascites Duplex- no DVT Date of Admission:05/28/19 Date of Discharge: 06/06/19 Minutes to complete discharge: 40 Discharge Summary Problems reviewed: Yes Reason For Visit: CELLULTIS Current Active Problems CHF (congestive heart failure) (Chronic) HTN (hypertension) (Chronic) Hypoxemia requiring supplemental oxygen (Chronic) Obesity hypoventilation syndrome (Chronic) Condition: Improved - Instructions Diet, Activity, Other Instructions: You were admitted in the hospital for cellulitis of your leg While in the hospital, we evaluated you with lab work, blood work and imaging including X rays of your chest, ultrasound of your abdomen and Echocardiogram of your heart. We found that your symptoms were caused by an infection of your left wounds. We treated you with medications and your symptoms improved. You will have a breathing Trelegy device ready at home when you reach. Please take all your medications as prescribed Please follow up with the Vascular Surgeon, Dr. Gonzalez at his vascular clinic within 1 week. We have will provide his information with your discharge packet. Please follow up with the timekeeper Dr. Moeller within 1 week Please follow up with the photonics technician Dr. Munoz within 1 week. Please follow up with your Primary care physician within 3 to 4 days for reassessment of your kidney functions and to measure the levels of ESR and CRP in your blood. Referrals: Prem Munoz MD [Staff Physician] - 1 Week Sergei Moeller MD [Staff Physician] - 1 Week Venkat Gonzalez DO [Staff Physician] - 1 Week Fish Ferrara MD [Primary Care Provider] - 1 Week Disposition[facility] - Home Medications Comprehensive Discharge Medication List: Ambulatory Orders Amlodipine Besylate [Norvasc -] 5 mg PO DAILY [facility] 5 05/29/19 Glipizide 10 mg PO BID 05/29/19 Furosemide [Lasix] 40 mg PO BID #30 tablet 06/06/19 Valsartan 160 mg PO DAILY #30 tablet 06/06/19 This patient is new to me today: Yes Date on this admission: 06/06/19 Emergency Visit: Yes ED Registration Date: 05/28/19 Care time: The patient presented to the Emergency Department on the above date and was hospitalized for further evaluation of their emergent condition. Critical Care patient: No - Discharge Referral Referred to [facility] No ATTENDING PHYSICIAN STATEMENT I saw and evaluated the patient. I reviewed the resident's note and discussed the case with the resident. I agree with the resident's findings and plan as documented. SUBJECTIVE: OBJECTIVE: ASSESSMENT AND PLAN:
--- NOTE | 2019-06-06 16:39 | PN ---
Progress Note (short form) - Note Progress Note: s: no chest pain, palps, dizziness, dyspnea. Current Medications Acetaminophen (Tylenol -) 650 mg PO Q6H PRN PRN Reason: Fever Or Pain Last Admin: 06/06/19 06:37 Dose: 650 mg Amlodipine Besylate (Norvasc -) 5 mg PO DAILY [facility] Last Admin: 06/06/19 11:17 Dose: 5 mg Benzocaine/Menthol (Cepacol Lozenge -) 1 each MM Q4H PRN PRN Reason: SORE THROAT Last Admin: 06/05/19 21:03 Dose: 1 each Collagenase (Santyl -) 1 applic TP DAILY [facility]; Protocol Last Admin: 06/06/19 11:26 Dose: 1 applic Furosemide (Lasix -) 40 mg PO BID@0600,1400 [facility] Last Admin: 06/06/19 14:31 Dose: Not Given Gabapentin (Neurontin -) 100 mg PO TID [facility] Last Admin: 06/06/19 14:32 Dose: Not Given Heparin Sodium (Porcine) (Heparin -) 5,000 unit SQ TID [facility] Last Admin: 06/06/19 14:31 Dose: Not Given Insulin Aspart (Novolog Vial Sliding Scale -) [address] [facility]; Protocol Last Admin: 06/06/19 12:12 Dose: Not Given Valsartan (Diovan -) 160 mg PO DAILY [facility] Last Admin: 06/06/19 11:17 Dose: 160 mg Venlafaxine HCl (Effexor -) 75 mg PO BID [facility] Last Admin: 06/06/19 11:22 Dose: Not Given Vital Signs Period Temp Pulse Resp BP Sys/Espinal Pulse Ox Last 24 Hr 98.3 F-99.4 F 72-79 20-20 113-152/58-81 96 Constitutional: Yes: Calm Cardiovascular: Yes: Regular Rate and Rhythm Respiratory: Yes: Other (decreased breath sounds, no wheezing or rales.) Gastrointestinal: Yes: Soft, Abdomen, Obese Edema: Yes Edema: LLE: 1+, RLE: 1+ Neurological: Yes: Alert, Oriented Assessment/Plan leg swelling, sob, Acute on chronic diastolic HF, with PHTN and some right sided CHF sx: -BNP 1K (no priors), still with SOB and LE edema. -echo reviewed. - dyspnea, edema improved with IV lasix - now transitioned to PO lasix, continue -bp controlled -Daily weights and BMP to monitor renal fx HTN: -improved -cont amlodipine, valsartan DM: -A1c 7s -per hospitalist leg wounds: -per hospitalist team stable for dc from cardiac perspective
[2019-06-06] MEDS: BENZOCAINE/MENTH/CETYLPYRD CL 1 EACH LOZENGE MM PRN (23:26)
[2019-06-07] MEDS: ACETAMINOPHEN 325 MG TABLET (FP) PO PRN ×2 (01:27→10:32)
[2019-06-07] MEDS: FUROSEMIDE 40 MG TABLET (FP) PO SCH (05:00)
[2019-06-07] MEDS: HEPARIN NA (PORCINE) 5,000 UNITS/ML 1ML VIAL SQ SCH (05:00)
[2019-06-07] MEDS: GABAPENTIN 100 MG CAPSULE (FP) PO SCH (05:01)
[2019-06-07] MEDS: INSULIN SLIDING SCALE (NOVOLOG) 1 VIAL SQ SCH ×2 (07:06→11:59)
[2019-06-07 10:12] VITALS: BP 134/68; PULSE 82; TEMP 97.9
[2019-06-07] MEDS ORDERED: PT OWN MED DRAWER 7, Y5N ONE (10:26)
[2019-06-07] MEDS: VALSARTAN 160 MG TABLET (UD) PO SCH (10:27)
[2019-06-07] MEDS: amLODIPine BESYLATE 5 MG TABLET (FP) PO SCH (10:28)
[2019-06-07] MEDS: VENLAFAXINE HCL 75 MG TABLET PO SCH (10:29)
--- NOTE | 2019-06-07 10:46 | PN ---
Progress Note (short form) - Note Progress Note: PULMONARY Denies shortness of breath, cough, chest pain. Vital Signs Period Temp Pulse Resp BP Sys/Espinal Pulse Ox Last 24 Hr 97.9 F-98.3 F 74-82 20-20 129-144/67-88 95-99 Gen: NAD at rest Heart: RRR Lung: decreased breath sounds at the bases Abd: soft, nontender, obese Ext: wrapped CBC, BMP 06/06/19 07:25 06/06/19 07:25 Active Medications Acetaminophen (Tylenol -) 650 mg PO Q6H PRN PRN Reason: Fever Or Pain Last Admin: 06/07/19 10:32 Dose: 650 mg Amlodipine Besylate (Norvasc -) 5 mg PO DAILY [facility] Last Admin: 06/07/19 10:28 Dose: 5 mg Benzocaine/Menthol (Cepacol Lozenge -) 1 each MM Q4H PRN PRN Reason: SORE THROAT Last Admin: 06/06/19 23:26 Dose: 1 each Collagenase (Santyl -) 1 applic TP DAILY [facility]; Protocol Last Admin: 06/06/19 11:26 Dose: 1 applic Furosemide (Lasix -) 40 mg PO BID@0600,1400 [facility] Last Admin: 06/07/19 05:00 Dose: 40 mg Gabapentin (Neurontin -) 100 mg PO TID [facility] Last Admin: 06/07/19 05:01 Dose: Not Given Heparin Sodium (Porcine) (Heparin -) 5,000 unit SQ TID [facility] Last Admin: 06/07/19 05:00 Dose: 5,000 unit Insulin Aspart (Novolog Vial Sliding Scale -) 1 vial SQ [facility]; Protocol Last Admin: 06/07/19 07:06 Dose: Not Given Valsartan (Diovan -) 160 mg PO DAILY [facility] Last Admin: 06/07/19 10:27 Dose: 160 mg Venlafaxine HCl (Effexor -) 75 mg PO BID [facility] Last Admin: 06/07/19 10:29 Dose: Not Given A/P Cellulitis Acute on Chronic Diastolic Heart Failure 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
[2019-06-07] MEDS: COLLAGENASE CLOSTRIDIUM HIST. 30 GRAMS TUBE TP SCH (12:19)
--- NOTE | 2019-06-07 16:25 | PN ---
Teaching Attending Note Name of Resident: Gian To ATTENDING PHYSICIAN STATEMENT I saw and evaluated the patient. I reviewed the resident's note and discussed the case with the resident. I agree with the resident's findings and plan as documented. SUBJECTIVE: Feeling well. Reports improvement in LE pain/tenderness/swelling. OBJECTIVE: Afebrile, Hemodynamically Stable. Last Vital Signs Temp Pulse Resp BP Pulse Ox 97.9 F 82 20 134/68 95 06/07/19 10:11 06/07/19 10:11 06/07/19 10:11 06/07/19 10:11 06/07/19 09:00 HEENT - Atraumatic, Normocephalic. Heart - S1, S2, RRR lungs - distant breath sounds due to body habitus Abdomen - soft, non-tender. High BMI. Bowel Sounds normal. Extremities - chronic edema +, no erythema, ulcers dressed. Laboratory Tests 05/28/19 05/28/19 05/28/19 07:54 19:35 19:35 WBC RBC Hgb Hct MCV MCH MCHC RDW Plt Count MPV Absolute Neuts (auto) Neutrophils % Lymphocytes % Monocytes % Eosinophils % Basophils % Nucleated RBC % ESR PT with INR INR PTT (Actin FS) Anticoagulation Therapy Puncture Site Patient Temperature ABG pH ABG pCO2 at Pt Temp ABG pO2 at Pt Temp ABG HCO3 ABG O2 Sat (Measured) ABG O2 Content ABG Base Excess Adam Test O2 Delivery Device Oxygen Flow Rate Vent Mode Vent Rate Mechanical Rate PEEP Pressure Support Vent Sodium 142 Potassium 3.9 Chloride 104 Carbon Dioxide 35 H Anion Gap 3 L BUN 18.0 Creatinine 0.9 Est GFR (CKD-EPI)AfAm 76.68 Est GFR (CKD-EPI)NonAf 66.16 POC Glucometer Random Glucose 193 H Hemoglobin A1c % Calcium 9.1 Phosphorus Magnesium Total Bilirubin 0.4 AST 16 ALT 23 Alkaline Phosphatase 127 H C-Reactive Protein B-Natriuretic Peptide 1007.7 H Total Protein 7.3 Albumin 3.5 Vancomycin Pre-Dose Hep A IgM Ab Confirm Hepatitis A Ab Total Hep Bs Antigen Hep Bs Antibody Hep B Core Total Ab Hep B Core IgM Ab Hepatitis Be Antibody Hepatitis Be Antigen Hep C Ab Diagnostic Influenza A (Rapid) Influenza B (Rapid) Blood Type O POSITIVE O POSITIVE Antibody Screen Negative 05/28/19 05/28/19 05/29/19 19:35 19:35 06:09 WBC 6.8 RBC 4.60 Hgb 13.0 Hct 40.3 MCV 87.7 MCH 28.2 MCHC 32.2 RDW 14.7 Plt Count 191 MPV 9.4 Absolute Neuts (auto) 5.1 Neutrophils % 74.3 Lymphocytes % 17.7 Monocytes % 6.5 Eosinophils % 1.2 Basophils % 0.3 Nucleated RBC % 0 ESR PT with INR 13.10 H INR 1.11 H PTT (Actin FS) 37.1 H Anticoagulation Therapy Puncture Site Patient Temperature ABG pH ABG pCO2 at Pt Temp ABG pO2 at Pt Temp ABG HCO3 ABG O2 Sat (Measured) ABG O2 Content ABG Base Excess Adam Test O2 Delivery Device Oxygen Flow Rate Vent Mode Vent Rate Mechanical Rate PEEP Pressure Support Vent Sodium Potassium Chloride Carbon Dioxide Anion Gap BUN Creatinine Est GFR (CKD-EPI)AfAm Est GFR (CKD-EPI)NonAf POC Glucometer 144 Random Glucose Hemoglobin A1c % Calcium Phosphorus Magnesium Total Bilirubin AST ALT Alkaline Phosphatase C-Reactive Protein B-Natriuretic Peptide Total Protein Albumin Vancomycin Pre-Dose Hep A IgM Ab Confirm Hepatitis A Ab Total Hep Bs Antigen Hep Bs Antibody Hep B Core Total Ab Hep B Core IgM Ab Hepatitis Be Antibody Hepatitis Be Antigen Hep C Ab Diagnostic Influenza A (Rapid) Influenza B (Rapid) Blood Type Antibody Screen 05/29/19 05/29/19 05/29/19 07:42 07:54 07:54 WBC 7.0 RBC 4.53 Hgb 12.9 Hct 39.4 MCV 87.0 MCH 28.4 MCHC 32.7 RDW 14.7 Plt Count 168 MPV 10.0 Absolute Neuts (auto) 4.8 Neutrophils % 68.2 Lymphocytes % 21.8 D Monocytes % 8.0 Eosinophils % 1.8 Basophils % 0.2 Nucleated RBC % 0 ESR PT with INR INR PTT (Actin FS) Anticoagulation Therapy Puncture Site Patient Temperature ABG pH ABG pCO2 at Pt Temp ABG pO2 at Pt Temp ABG HCO3 ABG O2 Sat (Measured) ABG O2 Content ABG Base Excess Adam Test O2 Delivery Device Oxygen Flow Rate Vent Mode Vent Rate Mechanical Rate PEEP Pressure Support Vent Sodium 143 Potassium 3.6 Chloride 102 Carbon Dioxide 33 H Anion Gap 7 L BUN 14.5 Creatinine 1.0 Est GFR (CKD-EPI)AfAm 67.51 Est GFR (CKD-EPI)NonAf 58.25 POC Glucometer Random Glucose 139 H Hemoglobin A1c % Calcium 8.9 Phosphorus 3.6 Magnesium 1.9 Total Bilirubin 0.5 AST 19 ALT 21 Alkaline Phosphatase 121 H C-Reactive Protein B-Natriuretic Peptide Total Protein 7.2 Albumin 3.5 Vancomycin Pre-Dose Hep A IgM Ab Confirm Negative Hepatitis A Ab Total Negative Hep Bs Antigen Negative Hep Bs Antibody Non reactive Hep B Core Total Ab Negative Hep B Core IgM Ab Negative Hepatitis Be Antibody Negative Hepatitis Be Antigen Negative Hep C Ab Diagnostic 0.2 Influenza A (Rapid) Influenza B (Rapid) Blood Type Antibody Screen 05/29/19 05/29/19 05/29/19 07:54 11:08 18:11 WBC RBC Hgb Hct MCV MCH MCHC RDW Plt Count MPV Absolute Neuts (auto) Neutrophils % Lymphocytes % Monocytes % Eosinophils % Basophils % Nucleated RBC % ESR PT with INR INR PTT (Actin FS) Anticoagulation Therapy Puncture Site Patient Temperature ABG pH ABG pCO2 at Pt Temp ABG pO2 at Pt Temp ABG HCO3 ABG O2 Sat (Measured) ABG O2 Content ABG Base Excess Adam Test O2 Delivery Device Oxygen Flow Rate Vent Mode Vent Rate Mechanical Rate PEEP Pressure Support Vent Sodium Potassium Chloride Carbon Dioxide Anion Gap BUN Creatinine Est GFR (CKD-EPI)AfAm Est GFR (CKD-EPI)NonAf POC Glucometer 201 183 Random Glucose Hemoglobin A1c % 7.2 H Calcium Phosphorus Magnesium Total Bilirubin AST ALT Alkaline Phosphatase C-Reactive Protein B-Natriuretic Peptide Total Protein Albumin Vancomycin Pre-Dose Hep A IgM Ab Confirm Hepatitis A Ab Total Hep Bs Antigen Hep Bs Antibody Hep B Core Total Ab Hep B Core IgM Ab Hepatitis Be Antibody Hepatitis Be Antigen Hep C Ab Diagnostic Influenza A (Rapid) Influenza B (Rapid) Blood Type Antibody Screen 05/29/19 05/30/19 05/30/19 21:50 05:59 06:58 WBC RBC Hgb Hct MCV MCH MCHC RDW Plt Count MPV Absolute Neuts (auto) Neutrophils % Lymphocytes % Monocytes % Eosinophils % Basophils % Nucleated RBC % ESR PT with INR INR PTT (Actin FS) Anticoagulation Therapy Puncture Site Patient Temperature ABG pH ABG pCO2 at Pt Temp ABG pO2 at Pt Temp ABG HCO3 ABG O2 Sat (Measured) ABG O2 Content ABG Base Excess Adam Test O2 Delivery Device Oxygen Flow Rate Vent Mode Vent Rate Mechanical Rate PEEP Pressure Support Vent Sodium 141 Potassium 3.9 Chloride 101 Carbon Dioxide 35 H Anion Gap 5 L BUN 15.3 Creatinine 0.9 Est GFR (CKD-EPI)AfAm 76.68 Est GFR (CKD-EPI)NonAf 66.16 POC Glucometer 188 154 Random Glucose 137 H Hemoglobin A1c % Calcium 8.9 Phosphorus Magnesium Total Bilirubin AST ALT Alkaline Phosphatase C-Reactive Protein B-Natriuretic Peptide Total Protein Albumin Vancomycin Pre-Dose Hep A IgM Ab Confirm Hepatitis A Ab Total Hep Bs Antigen Hep Bs Antibody Hep B Core Total Ab Hep B Core IgM Ab Hepatitis Be Antibody Hepatitis Be Antigen Hep C Ab Diagnostic Influenza A (Rapid) Influenza B (Rapid) Blood Type Antibody Screen 05/30/19 05/30/19 05/30/19 11:37 16:46 21:07 WBC RBC Hgb Hct MCV MCH MCHC RDW Plt Count MPV Absolute Neuts (auto) Neutrophils % Lymphocytes % Monocytes % Eosinophils % Basophils % Nucleated RBC % ESR PT with INR INR PTT (Actin FS) Anticoagulation Therapy Puncture Site Patient Temperature ABG pH ABG pCO2 at Pt Temp ABG pO2 at Pt Temp ABG HCO3 ABG O2 Sat (Measured) ABG O2 Content ABG Base Excess Adam Test O2 Delivery Device Oxygen Flow Rate Vent Mode Vent Rate Mechanical Rate PEEP Pressure Support Vent Sodium Potassium Chloride Carbon Dioxide Anion Gap BUN Creatinine Est GFR (CKD-EPI)AfAm Est GFR (CKD-EPI)NonAf POC Glucometer 152 233 142 Random Glucose Hemoglobin A1c % Calcium Phosphorus Magnesium Total Bilirubin AST ALT Alkaline Phosphatase C-Reactive Protein B-Natriuretic Peptide Total Protein Albumin Vancomycin Pre-Dose Hep A IgM Ab Confirm Hepatitis A Ab Total Hep Bs Antigen Hep Bs Antibody Hep B Core Total Ab Hep B Core IgM Ab Hepatitis Be Antibody Hepatitis Be Antigen Hep C Ab Diagnostic Influenza A (Rapid) Influenza B (Rapid) Blood Type Antibody Screen 05/31/19 05/31/19 05/31/19 05:53 06:42 11:19 WBC RBC Hgb Hct MCV MCH MCHC RDW Plt Count MPV Absolute Neuts (auto) Neutrophils % Lymphocytes % Monocytes % Eosinophils % Basophils % Nucleated RBC % ESR PT with INR INR PTT (Actin FS) Anticoagulation Therapy Puncture Site Patient Temperature ABG pH ABG pCO2 at Pt Temp ABG pO2 at Pt Temp ABG HCO3 ABG O2 Sat (Measured) ABG O2 Content ABG Base Excess Adam Test O2 Delivery Device Oxygen Flow Rate Vent Mode Vent Rate Mechanical Rate PEEP Pressure Support Vent Sodium 139 Potassium 4.0 Chloride 99 Carbon Dioxide 35 H Anion Gap 5 L BUN 18.3 H Creatinine 1.1 Est GFR (CKD-EPI)AfAm 60.16 Est GFR (CKD-EPI)NonAf 51.91 POC Glucometer 143 161 Random Glucose 135 H Hemoglobin A1c % Calcium 8.6 Phosphorus Magnesium 2.1 Total Bilirubin AST ALT Alkaline Phosphatase C-Reactive Protein B-Natriuretic Peptide Total Protein Albumin Vancomycin Pre-Dose Hep A IgM Ab Confirm Hepatitis A Ab Total Hep Bs Antigen Hep Bs Antibody Hep B Core Total Ab Hep B Core IgM Ab Hepatitis Be Antibody Hepatitis Be Antigen Hep C Ab Diagnostic Influenza A (Rapid) Influenza B (Rapid) Blood Type Antibody Screen 05/31/19 05/31/19 06/01/19 16:16 21:40 00:15 WBC RBC Hgb Hct MCV MCH MCHC RDW Plt Count MPV Absolute Neuts (auto) Neutrophils % Lymphocytes % Monocytes % Eosinophils % Basophils % Nucleated RBC % ESR PT with INR INR PTT (Actin FS) Anticoagulation Therapy Puncture Site Patient Temperature ABG pH ABG pCO2 at Pt Temp ABG pO2 at Pt Temp ABG HCO3 ABG O2 Sat (Measured) ABG O2 Content ABG Base Excess Adam Test O2 Delivery Device Oxygen Flow Rate Vent Mode Vent Rate Mechanical Rate PEEP Pressure Support Vent Sodium Potassium Chloride Carbon Dioxide Anion Gap BUN Creatinine Est GFR (CKD-EPI)AfAm Est GFR (CKD-EPI)NonAf POC Glucometer 179 164 Random Glucose Hemoglobin A1c % Calcium Phosphorus Magnesium Total Bilirubin AST ALT Alkaline Phosphatase C-Reactive Protein B-Natriuretic Peptide Total Protein Albumin Vancomycin Pre-Dose 14.4 L Hep A IgM Ab Confirm Hepatitis A Ab Total Hep Bs Antigen Hep Bs Antibody Hep B Core Total Ab Hep B Core IgM Ab Hepatitis Be Antibody Hepatitis Be Antigen Hep C Ab Diagnostic Influenza A (Rapid) Influenza B (Rapid) Blood Type Antibody Screen 06/01/19 06/01/19 06/01/19 05:51 07:27 11:46 WBC RBC Hgb Hct MCV MCH MCHC RDW Plt Count MPV Absolute Neuts (auto) Neutrophils % Lymphocytes % Monocytes % Eosinophils % Basophils % Nucleated RBC % ESR PT with INR INR PTT (Actin FS) Anticoagulation Therapy Puncture Site Patient Temperature ABG pH ABG pCO2 at Pt Temp ABG pO2 at Pt Temp ABG HCO3 ABG O2 Sat (Measured) ABG O2 Content ABG Base Excess Adam Test O2 Delivery Device Oxygen Flow Rate Vent Mode Vent Rate Mechanical Rate PEEP Pressure Support Vent Sodium 140 Potassium 3.5 Chloride 99 Carbon Dioxide 36 H Anion Gap 5 L BUN 18.4 H Creatinine 1.1 Est GFR (CKD-EPI)AfAm 60.16 Est GFR (CKD-EPI)NonAf 51.91 POC Glucometer 152 204 Random Glucose 135 H Hemoglobin A1c % Calcium 8.3 L Phosphorus Magnesium 2.1 Total Bilirubin AST ALT Alkaline Phosphatase C-Reactive Protein B-Natriuretic Peptide Total Protein Albumin Vancomycin Pre-Dose Hep A IgM Ab Confirm Hepatitis A Ab Total Hep Bs Antigen Hep Bs Antibody Hep B Core Total Ab Hep B Core IgM Ab Hepatitis Be Antibody Hepatitis Be Antigen Hep C Ab Diagnostic Influenza A (Rapid) Influenza B (Rapid) Blood Type Antibody Screen 06/01/19 06/01/19 06/01/19 14:00 16:07 21:30 WBC RBC Hgb Hct MCV MCH MCHC RDW Plt Count MPV Absolute Neuts (auto) Neutrophils % Lymphocytes % Monocytes % Eosinophils % Basophils % Nucleated RBC % ESR PT with INR INR PTT (Actin FS) Anticoagulation Therapy Puncture Site Patient Temperature ABG pH ABG pCO2 at Pt Temp ABG pO2 at Pt Temp ABG HCO3 ABG O2 Sat (Measured) ABG O2 Content ABG Base Excess Adam Test O2 Delivery Device Oxygen Flow Rate Vent Mode Vent Rate Mechanical Rate PEEP Pressure Support Vent Sodium Potassium Chloride Carbon Dioxide Anion Gap BUN Creatinine Est GFR (CKD-EPI)AfAm Est GFR (CKD-EPI)NonAf POC Glucometer 138 205 Random Glucose Hemoglobin A1c % Calcium Phosphorus Magnesium Total Bilirubin AST ALT Alkaline Phosphatase C-Reactive Protein B-Natriuretic Peptide Total Protein Albumin Vancomycin Pre-Dose Hep A IgM Ab Confirm Hepatitis A Ab Total Hep Bs Antigen Hep Bs Antibody Hep B Core Total Ab Hep B Core IgM Ab Hepatitis Be Antibody Hepatitis Be Antigen Hep C Ab Diagnostic Influenza A (Rapid) Negative Influenza B (Rapid) Negative Blood Type Antibody Screen 06/02/19 06/02/19 06/02/19 05:58 06:55 08:11 WBC RBC Hgb Hct MCV MCH MCHC RDW Plt Count MPV Absolute Neuts (auto) Neutrophils % Lymphocytes % Monocytes % Eosinophils % Basophils % Nucleated RBC % ESR PT with INR INR PTT (Actin FS) Anticoagulation Therapy Biophysics Professor Puncture Site Right radial Patient Temperature Biophysics Professor ABG pH 7.44 ABG pCO2 at Pt Temp 57.1 H ABG pO2 at Pt Temp 49.6 L* ABG HCO3 37.8 H ABG O2 Sat (Measured) 85.1 L ABG O2 Content 14.3 ABG Base Excess 11.7 H Adam Test Positive O2 Delivery Device Room air Oxygen Flow Rate No Vent Mode Biophysics Professor Vent Rate Biophysics Professor Mechanical Rate Biophysics Professor PEEP Biophysics Professor Pressure Support Vent Biophysics Professor Sodium 140 Potassium 3.5 Chloride 97 L Carbon Dioxide 38 H Anion Gap 5 L BUN 18.3 H Creatinine 1.1 Est GFR (CKD-EPI)AfAm 60.16 Est GFR (CKD-EPI)NonAf 51.91 POC Glucometer 179 Random Glucose 146 H Hemoglobin A1c % Calcium 8.9 Phosphorus Magnesium 2.0 Total Bilirubin AST ALT Alkaline Phosphatase C-Reactive Protein 2.5 H B-Natriuretic Peptide Total Protein Albumin Vancomycin Pre-Dose Hep A IgM Ab Confirm Hepatitis A Ab Total Hep Bs Antigen Hep Bs Antibody Hep B Core Total Ab Hep B Core IgM Ab Hepatitis Be Antibody Hepatitis Be Antigen Hep C Ab Diagnostic Influenza A (Rapid) Influenza B (Rapid) Blood Type Antibody Screen 06/02/19 06/02/19 06/02/19 08:11 11:39 17:11 WBC 7.2 RBC 4.32 Hgb 12.2 Hct 37.6 MCV 87.1 MCH 28.2 MCHC 32.4 RDW 14.2 Plt Count 188 MPV 9.8 Absolute Neuts (auto) 5.1 Neutrophils % 71.0 Lymphocytes % 19.1 Monocytes % 7.5 Eosinophils % 1.9 Basophils % 0.5 Nucleated RBC % 0 ESR 51 H PT with INR INR PTT (Actin FS) Anticoagulation Therapy Puncture Site Patient Temperature ABG pH ABG pCO2 at Pt Temp ABG pO2 at Pt Temp ABG HCO3 ABG O2 Sat (Measured) ABG O2 Content ABG Base Excess Adam Test O2 Delivery Device Oxygen Flow Rate Vent Mode Vent Rate Mechanical Rate PEEP Pressure Support Vent Sodium Potassium Chloride Carbon Dioxide Anion Gap BUN Creatinine Est GFR (CKD-EPI)AfAm Est GFR (CKD-EPI)NonAf POC Glucometer 176 171 Random Glucose Hemoglobin A1c % Calcium Phosphorus Magnesium Total Bilirubin AST ALT Alkaline Phosphatase C-Reactive Protein B-Natriuretic Peptide Total Protein Albumin Vancomycin Pre-Dose Hep A IgM Ab Confirm Hepatitis A Ab Total Hep Bs Antigen Hep Bs Antibody Hep B Core Total Ab Hep B Core IgM Ab Hepatitis Be Antibody Hepatitis Be Antigen Hep C Ab Diagnostic Influenza A (Rapid) Influenza B (Rapid) Blood Type Antibody Screen 06/02/19 06/03/19 06/03/19 22:24 06:54 07:30 WBC RBC Hgb Hct MCV MCH MCHC RDW Plt Count MPV Absolute Neuts (auto) Neutrophils % Lymphocytes % Monocytes % Eosinophils % Basophils % Nucleated RBC % ESR PT with INR INR PTT (Actin FS) Anticoagulation Therapy Puncture Site Patient Temperature ABG pH ABG pCO2 at Pt Temp ABG pO2 at Pt Temp ABG HCO3 ABG O2 Sat (Measured) ABG O2 Content ABG Base Excess Adam Test O2 Delivery Device Oxygen Flow Rate Vent Mode Vent Rate Mechanical Rate PEEP Pressure Support Vent Sodium 139 Potassium 3.6 Chloride 95 L Carbon Dioxide 41 H Anion Gap 3 L BUN 20.4 H Creatinine 1.0 Est GFR (CKD-EPI)AfAm 67.51 Est GFR (CKD-EPI)NonAf 58.25 POC Glucometer 169 168 Random Glucose 155 H Hemoglobin A1c % Calcium 8.8 Phosphorus Magnesium 2.3 Total Bilirubin AST ALT Alkaline Phosphatase C-Reactive Protein B-Natriuretic Peptide Total Protein Albumin Vancomycin Pre-Dose Hep A IgM Ab Confirm Hepatitis A Ab Total Hep Bs Antigen Hep Bs Antibody Hep B Core Total Ab Hep B Core IgM Ab Hepatitis Be Antibody Hepatitis Be Antigen Hep C Ab Diagnostic Influenza A (Rapid) Influenza B (Rapid) Blood Type Antibody Screen 06/03/19 06/03/19 06/03/19 11:51 17:18 21:36 WBC RBC Hgb Hct MCV MCH MCHC RDW Plt Count MPV Absolute Neuts (auto) Neutrophils % Lymphocytes % Monocytes % Eosinophils % Basophils % Nucleated RBC % ESR PT with INR INR PTT (Actin FS) Anticoagulation Therapy Puncture Site Patient Temperature ABG pH ABG pCO2 at Pt Temp ABG pO2 at Pt Temp ABG HCO3 ABG O2 Sat (Measured) ABG O2 Content ABG Base Excess Adam Test O2 Delivery Device Oxygen Flow Rate Vent Mode Vent Rate Mechanical Rate PEEP Pressure Support Vent Sodium Potassium Chloride Carbon Dioxide Anion Gap BUN Creatinine Est GFR (CKD-EPI)AfAm Est GFR (CKD-EPI)NonAf POC Glucometer 182 137 183 Random Glucose Hemoglobin A1c % Calcium Phosphorus Magnesium Total Bilirubin AST ALT Alkaline Phosphatase C-Reactive Protein B-Natriuretic Peptide Total Protein Albumin Vancomycin Pre-Dose Hep A IgM Ab Confirm Hepatitis A Ab Total Hep Bs Antigen Hep Bs Antibody Hep B Core Total Ab Hep B Core IgM Ab Hepatitis Be Antibody Hepatitis Be Antigen Hep C Ab Diagnostic Influenza A (Rapid) Influenza B (Rapid) Blood Type Antibody Screen 06/04/19 06/04/19 06/04/19 06:23 06:55 11:25 WBC RBC Hgb Hct MCV MCH MCHC RDW Plt Count MPV Absolute Neuts (auto) Neutrophils % Lymphocytes % Monocytes % Eosinophils % Basophils % Nucleated RBC % ESR PT with INR INR PTT (Actin FS) Anticoagulation Therapy Puncture Site Patient Temperature ABG pH ABG pCO2 at Pt Temp ABG pO2 at Pt Temp ABG HCO3 ABG O2 Sat (Measured) ABG O2 Content ABG Base Excess Adam Test O2 Delivery Device Oxygen Flow Rate Vent Mode Vent Rate Mechanical Rate PEEP Pressure Support Vent Sodium 140 Potassium 3.4 L Chloride 97 L Carbon Dioxide 37 H Anion Gap 5 L BUN 20.6 H Creatinine 0.9 Est GFR (CKD-EPI)AfAm 76.68 Est GFR (CKD-EPI)NonAf 66.16 POC Glucometer 147 189 Random Glucose 134 H Hemoglobin A1c % Calcium 8.8 Phosphorus Magnesium 2.3 Total Bilirubin AST ALT Alkaline Phosphatase C-Reactive Protein B-Natriuretic Peptide Total Protein Albumin Vancomycin Pre-Dose Hep A IgM Ab Confirm Hepatitis A Ab Total Hep Bs Antigen Hep Bs Antibody Hep B Core Total Ab Hep B Core IgM Ab Hepatitis Be Antibody Hepatitis Be Antigen Hep C Ab Diagnostic Influenza A (Rapid) Influenza B (Rapid) Blood Type Antibody Screen 06/04/19 06/04/19 06/05/19 16:47 21:51 06:15 WBC RBC Hgb Hct MCV MCH MCHC RDW Plt Count MPV Absolute Neuts (auto) Neutrophils % Lymphocytes % Monocytes % Eosinophils % Basophils % Nucleated RBC % ESR PT with INR INR PTT (Actin FS) Anticoagulation Therapy Puncture Site Patient Temperature ABG pH ABG pCO2 at Pt Temp ABG pO2 at Pt Temp ABG HCO3 ABG O2 Sat (Measured) ABG O2 Content ABG Base Excess Adam Test O2 Delivery Device Oxygen Flow Rate Vent Mode Vent Rate Mechanical Rate PEEP Pressure Support Vent Sodium 139 Potassium 3.8 Chloride 97 L Carbon Dioxide 39 H Anion Gap 4 L BUN 20.8 H Creatinine 1.0 Est GFR (CKD-EPI)AfAm 67.51 Est GFR (CKD-EPI)NonAf 58.25 POC Glucometer 172 155 Random Glucose 144 H Hemoglobin A1c % Calcium 8.7 Phosphorus Magnesium 2.2 Total Bilirubin AST ALT Alkaline Phosphatase C-Reactive Protein B-Natriuretic Peptide Total Protein Albumin Vancomycin Pre-Dose Hep A IgM Ab Confirm Hepatitis A Ab Total Hep Bs Antigen Hep Bs Antibody Hep B Core Total Ab Hep B Core IgM Ab Hepatitis Be Antibody Hepatitis Be Antigen Hep C Ab Diagnostic Influenza A (Rapid) Influenza B (Rapid) Blood Type Antibody Screen 06/05/19 06/05/19 06/05/19 06:20 10:57 16:40 WBC RBC Hgb Hct MCV MCH MCHC RDW Plt Count MPV Absolute Neuts (auto) Neutrophils % Lymphocytes % Monocytes % Eosinophils % Basophils % Nucleated RBC % ESR PT with INR INR PTT (Actin FS) Anticoagulation Therapy Puncture Site Patient Temperature ABG pH ABG pCO2 at Pt Temp ABG pO2 at Pt Temp ABG HCO3 ABG O2 Sat (Measured) ABG O2 Content ABG Base Excess Adam Test O2 Delivery Device Oxygen Flow Rate Vent Mode Vent Rate Mechanical Rate PEEP Pressure Support Vent Sodium Potassium Chloride Carbon Dioxide Anion Gap BUN Creatinine Est GFR (CKD-EPI)AfAm Est GFR (CKD-EPI)NonAf POC Glucometer 130 149 157 Random Glucose Hemoglobin A1c % Calcium Phosphorus Magnesium Total Bilirubin AST ALT Alkaline Phosphatase C-Reactive Protein B-Natriuretic Peptide Total Protein Albumin Vancomycin Pre-Dose Hep A IgM Ab Confirm Hepatitis A Ab Total Hep Bs Antigen Hep Bs Antibody Hep B Core Total Ab Hep B Core IgM Ab Hepatitis Be Antibody Hepatitis Be Antigen Hep C Ab Diagnostic Influenza A (Rapid) Influenza B (Rapid) Blood Type Antibody Screen 06/05/19 06/06/19 06/06/19 21:08 06:26 07:25 WBC RBC Hgb Hct MCV MCH MCHC RDW Plt Count MPV Absolute Neuts (auto) Neutrophils % Lymphocytes % Monocytes % Eosinophils % Basophils % Nucleated RBC % ESR PT with INR INR PTT (Actin FS) Anticoagulation Therapy Puncture Site Patient Temperature ABG pH ABG pCO2 at Pt Temp ABG pO2 at Pt Temp ABG HCO3 ABG O2 Sat (Measured) ABG O2 Content ABG Base Excess Adam Test O2 Delivery Device Oxygen Flow Rate Vent Mode Vent Rate Mechanical Rate PEEP Pressure Support Vent Sodium 140 Potassium 4.0 Chloride 97 L Carbon Dioxide 40 H Anion Gap 3 L BUN 25.0 H Creatinine 1.0 Est GFR (CKD-EPI)AfAm 67.51 Est GFR (CKD-EPI)NonAf 58.25 POC Glucometer 158 125 Random Glucose 114 H Hemoglobin A1c % Calcium 8.6 Phosphorus Magnesium 2.0 Total Bilirubin AST ALT Alkaline Phosphatase C-Reactive Protein 3.9 H B-Natriuretic Peptide Total Protein Albumin Vancomycin Pre-Dose Hep A IgM Ab Confirm Hepatitis A Ab Total Hep Bs Antigen Hep Bs Antibody Hep B Core Total Ab Hep B Core IgM Ab Hepatitis Be Antibody Hepatitis Be Antigen Hep C Ab Diagnostic Influenza A (Rapid) Influenza B (Rapid) Blood Type Antibody Screen 06/06/19 06/06/19 06/06/19 07:25 07:25 11:41 WBC 6.6 RBC 4.08 Hgb 11.8 Hct 35.5 MCV 87.0 MCH 28.9 MCHC 33.2 RDW 14.4 Plt Count 164 MPV 10.1 Absolute Neuts (auto) 4.9 Neutrophils % 74.7 Lymphocytes % 16.8 Monocytes % 5.9 Eosinophils % 2.2 Basophils % 0.4 Nucleated RBC % 0 ESR 56 H PT with INR INR PTT (Actin FS) Anticoagulation Therapy Puncture Site Patient Temperature ABG pH ABG pCO2 at Pt Temp ABG pO2 at Pt Temp ABG HCO3 ABG O2 Sat (Measured) ABG O2 Content ABG Base Excess Adam Test O2 Delivery Device Oxygen Flow Rate Vent Mode Vent Rate Mechanical Rate PEEP Pressure Support Vent Sodium Potassium Chloride Carbon Dioxide Anion Gap BUN Creatinine Est GFR (CKD-EPI)AfAm Est GFR (CKD-EPI)NonAf POC Glucometer 140 Random Glucose Hemoglobin A1c % Calcium Phosphorus Magnesium Total Bilirubin AST ALT Alkaline Phosphatase C-Reactive Protein B-Natriuretic Peptide Total Protein Albumin Vancomycin Pre-Dose Hep A IgM Ab Confirm Hepatitis A Ab Total Hep Bs Antigen Hep Bs Antibody Hep B Core Total Ab Hep B Core IgM Ab Hepatitis Be Antibody Hepatitis Be Antigen Hep C Ab Diagnostic Influenza A (Rapid) Influenza B (Rapid) Blood Type Antibody Screen 06/06/19 06/06/19 06/07/19 16:59 21:22 05:07 WBC RBC Hgb Hct MCV MCH MCHC RDW Plt Count MPV Absolute Neuts (auto) Neutrophils % Lymphocytes % Monocytes % Eosinophils % Basophils % Nucleated RBC % ESR PT with INR INR PTT (Actin FS) Anticoagulation Therapy Puncture Site Patient Temperature ABG pH ABG pCO2 at Pt Temp ABG pO2 at Pt Temp ABG HCO3 ABG O2 Sat (Measured) ABG O2 Content ABG Base Excess Adam Test O2 Delivery Device Oxygen Flow Rate Vent Mode Vent Rate Mechanical Rate PEEP Pressure Support Vent Sodium Potassium Chloride Carbon Dioxide Anion Gap BUN Creatinine Est GFR (CKD-EPI)AfAm Est GFR (CKD-EPI)NonAf POC Glucometer 129 162 131 Random Glucose Hemoglobin A1c % Calcium Phosphorus Magnesium Total Bilirubin AST ALT Alkaline Phosphatase C-Reactive Protein B-Natriuretic Peptide Total Protein Albumin Vancomycin Pre-Dose Hep A IgM Ab Confirm Hepatitis A Ab Total Hep Bs Antigen Hep Bs Antibody Hep B Core Total Ab Hep B Core IgM Ab Hepatitis Be Antibody Hepatitis Be Antigen Hep C Ab Diagnostic Influenza A (Rapid) Influenza B (Rapid) Blood Type Antibody Screen 06/07/19 11:58 WBC RBC Hgb Hct MCV MCH MCHC RDW Plt Count MPV Absolute Neuts (auto) Neutrophils % Lymphocytes % Monocytes % Eosinophils % Basophils % Nucleated RBC % ESR PT with INR INR PTT (Actin FS) Anticoagulation Therapy Puncture Site Patient Temperature ABG pH ABG pCO2 at Pt Temp ABG pO2 at Pt Temp ABG HCO3 ABG O2 Sat (Measured) ABG O2 Content ABG Base Excess Adam Test O2 Delivery Device Oxygen Flow Rate Vent Mode Vent Rate Mechanical Rate PEEP Pressure Support Vent Sodium Potassium Chloride Carbon Dioxide Anion Gap BUN Creatinine Est GFR (CKD-EPI)AfAm Est GFR (CKD-EPI)NonAf POC Glucometer 147 Random Glucose Hemoglobin A1c % Calcium Phosphorus Magnesium Total Bilirubin AST ALT Alkaline Phosphatase C-Reactive Protein B-Natriuretic Peptide Total Protein Albumin Vancomycin Pre-Dose Hep A IgM Ab Confirm Hepatitis A Ab Total Hep Bs Antigen Hep Bs Antibody Hep B Core Total Ab Hep B Core IgM Ab Hepatitis Be Antibody Hepatitis Be Antigen Hep C Ab Diagnostic Influenza A (Rapid) Influenza B (Rapid) Blood Type Antibody Screen Discharge Medications Medication Instructions Recorded Amlodipine Besylate [Norvasc -] 5 mg PO DAILY MDD 5 05/29/19 Glipizide 10 mg PO BID 05/29/19 Furosemide [Lasix] 40 mg PO BID #30 tablet 06/06/19 Valsartan 160 mg PO DAILY #30 tablet 06/06/19 ASSESSMENT AND PLAN:
== END 2019-06-07 13:14 | DRG 602 ==
LOC: JER 16:52 → JERBED 19:48 → J6S 05-29 00:45
DX: L03.116 Cellulitis of left lower limb (principal); I50.33 Acute on chronic diastolic (congestive) heart failure; Z68.44 Body mass index [BMI] 60.0-69.9, adult; R18.8 Other ascites; J96.11 Chronic respiratory failure with hypoxia; L97.929 Non-pressure chronic ulcer of unspecified part of left lower leg with unspecified severity; I11.0 Hypertensive heart disease with heart failure; E66.01 Morbid (severe) obesity due to excess calories; I89.0 Lymphedema, not elsewhere classified; I27.20 Pulmonary hypertension, unspecified; R16.2 Hepatomegaly with splenomegaly, not elsewhere classified; G47.33 Obstructive sleep apnea (adult) (pediatric); M25.511 Pain in right shoulder; E87.6 Hypokalemia; E11.42 Type 2 diabetes mellitus with diabetic polyneuropathy
CPT/HCPCS: 36415; 36600; 71045-TC-FY; 73030-TC-RT-FY; 73590-TC-LT-FY; 76700-TC; 80048; 80053; 82803; 82962; 83036; 83735; 83880; 84100; 85025; 85610; 85651; 85730; 86140; 86704; 86706; 86707; 86708; 86709; 86803; 86850; 86900; 86901; 87040; 87070; 87186; 87205; 87340; 87804; 93005; 93010; 93306-TC; 93925-TC; 93970-TC; 97116-GP; 97161-GP; 99285-25; G0480; J0131; J1644

== ENCOUNTER 2020-10-17 15:22 | Inpatient (IN) | payer OTHER ==
[2020-10-17 15:27] VITALS: BMI 52.7
[2020-10-17] MEDS ORDERED: CEFEPIME HCL/D5W 2 GM/50 ML BAG IVPB ONE (17:49)
[2020-10-17] MEDS ORDERED: CEFEPIME 2 GM/100 ML BAG IVPB ONE (17:56)
[2020-10-17 18:39] LABS: BASO % 0.7 % (0-2.0); EOS % 3.4 % (0-4.5); HEMATOCRIT 40.7 % (32.4-45.2); HEMOGLOBIN 13.3 GM/dL (10.7-15.3); LYMPH % 21.6 % (8-40); MCH 29.5 pg (25.7-33.7); MCHC 32.8 g/dl (32.0-36.0); MEAN CELL VOLUME 89.9 fl (80-96); MEAN PLT VOLUME 9.9 fl (7.5-11.1); NEUT % 69.3 % (42.8-82.8); PLATELET COUNT 238 K/MM3 (134-434); RBC 4.52 M/mm3 (3.60-5.2); RDW 14.1 % (11.6-15.6); WHITE BLOOD COUNT 8.8 K/mm3 (4.0-10.0)
[2020-10-17 18:47] LABS: INR 1.15 (0.83-1.09); PROTHROMBIN TIME (PATIENT) 14.1 SEC (9.7-13.0)
[2020-10-17 18:50] LABS: ACTIVATED PTT 31.8 SECONDS (25.2-36.5)
[2020-10-17 18:57] LABS: ALBUMIN 2.8 g/dl (3.4-5.0); CALCIUM 8.7 mg/dL (8.5-10.1)
[2020-10-17 18:58] LABS: BLOOD UREA NITROGEN 15.7 mg/dL (7-18)
[2020-10-17 19:02] LABS: BILIRUBIN,TOTAL 0.3 mg/dL (0.2-1); TOT PROT 7.8 g/dl (6.4-8.2)
[2020-10-17 19:03] LABS: CREATININE 0.9 mg/dL (0.55-1.3)
[2020-10-17 20:15] LABS: ERYTHROCYTE SEDIMENTATION RATE 79 mm/hr (0-30)
[2020-10-18] MEDS: CEFEPIME HCL/D5W 1 GM/50 ML BAG IVPB SCH ×2 (02:18→15:40)
[2020-10-18 08:19] LABS: HEMATOCRIT 37.7 % (32.4-45.2); HEMOGLOBIN 12.7 GM/dL (10.7-15.3); MCH 29.9 pg (25.7-33.7); MCHC 33.8 g/dl (32.0-36.0); MEAN CELL VOLUME 88.5 fl (80-96); MEAN PLT VOLUME 9.2 fl (7.5-11.1); PLATELET COUNT 229 K/MM3 (134-434); RBC 4.27 M/mm3 (3.60-5.2); RDW 14.4 % (11.6-15.6); WHITE BLOOD COUNT 9.5 K/mm3 (4.0-10.0)
[2020-10-18] MEDS: INSULIN SLIDING SCALE (NOVOLOG) 1 VIAL SQ SCH ×4 (08:31→21:14)
[2020-10-18 08:44] LABS: ALBUMIN 2.7 g/dl (3.4-5.0); CALCIUM 8.8 mg/dL (8.5-10.1)
[2020-10-18 08:47] LABS: CHOLESTEROL 182 mg/dL (50-200)
[2020-10-18 08:48] LABS: TRIGLYCERIDES 101 mg/dL (0-150)
[2020-10-18 08:49] LABS: BILIRUBIN,TOTAL 0.4 mg/dL (0.2-1); BLOOD UREA NITROGEN 21.2 mg/dL (7-18); LDL CHOLESTEROL (ONLY SJRH) 109 mg/dL (5-100); TOT PROT 7.1 g/dl (6.4-8.2)
[2020-10-18 08:51] LABS: HDL CHOLESTEROL 51 mg/dL (40-60)
[2020-10-18] MEDS ORDERED: PT OWN MED DRAWER 7, Y5N ONE (10:42)
[2020-10-18] MEDS ORDERED: CEFEPIME 1 GM in DEXTROSE 5%-WATER 1 GM/100 ML BAG IVPB SCH (10:43)
[2020-10-18] MEDS ORDERED: CEFEPIME HCL 1 GM VIAL (RESTRICTED TO ID) ONE ×2 (11:12→18:39)
[2020-10-18] MEDS ORDERED: DEXTROSE 5%-WATER 100 ML IVPB ONE ×2 (11:12→18:39)
[2020-10-18] MEDS: CEFEPIME 1 GM in DEXTROSE 5%-WATER 1 GM/100 ML BAG IVPB SCH ×2 (11:25→18:53)
[2020-10-18] MEDS: ENOXAPARIN NA (PORCINE) 40 MG/0.4 ML DISP.SYRIN SQ SCH (11:26)
[2020-10-18] MEDS: ACETAMINOPHEN 325 MG TABLET (FP) PO PRN (11:26)
[2020-10-18] MEDS: VANCOMYCIN 1 GRAM (PRE-DOCKED) 1,000 MG/250 ML BAG IVPB SCH (13:11)
[2020-10-18] MEDS: ASPIRIN COATED 81 MG TABLET.EC PO SCH ×2 (13:13→13:51)
[2020-10-18] MEDS ORDERED: INSULIN (NOVOLOG) ASPART 100 UNITS/ML 10ML VIAL ONE (21:00)
[2020-10-18] MEDS ORDERED: risperiDONE 0.5 MG TABLET PO SCH (22:00)
[2020-10-19] MEDS: VANCOMYCIN 1 GRAM (PRE-DOCKED) 1,000 MG/250 ML BAG IVPB SCH ×2 (00:42→14:44)
[2020-10-19] MEDS ORDERED: DEXTROSE 5%-WATER 100 ML IVPB ONE ×2 (03:17→09:53)
[2020-10-19] MEDS ORDERED: CEFEPIME HCL 1 GM VIAL (RESTRICTED TO ID) ONE ×2 (03:17→09:53)
[2020-10-19] MEDS: CEFEPIME 1 GM in DEXTROSE 5%-WATER 1 GM/100 ML BAG IVPB SCH ×2 (03:19→10:34)
[2020-10-19] MEDS: ACETAMINOPHEN 325 MG TABLET (FP) PO PRN ×2 (06:13→17:14)
[2020-10-19] MEDS: INSULIN SLIDING SCALE (NOVOLOG) 1 VIAL SQ SCH ×4 (06:16→21:12)
[2020-10-19 08:53] LABS: BASO % 0.5 % (0-2.0); EOS % 2.9 % (0-4.5); HEMATOCRIT 37.3 % (32.4-45.2); HEMOGLOBIN 12.6 GM/dL (10.7-15.3); LYMPH % 23.7 % (8-40); MCHC 33.7 g/dl (32.0-36.0); MEAN CELL VOLUME 89.1 fl (80-96); MEAN PLT VOLUME 9.5 fl (7.5-11.1); MONO % 4.7 % (3.8-10.2); NEUT % 68.2 % (42.8-82.8); PLATELET COUNT 196 K/MM3 (134-434); RBC 4.19 M/mm3 (3.60-5.2); WHITE BLOOD COUNT 8.5 K/mm3 (4.0-10.0)
[2020-10-19 09:24] LABS: CALCIUM 8.2 mg/dL (8.5-10.1)
[2020-10-19 09:25] LABS: BLOOD UREA NITROGEN 21.3 mg/dL (7-18); MAGNESIUM 1.9 mg/dL (1.8-2.4)
[2020-10-19 09:28] LABS: PHOSPHOROUS 3.4 mg/dL (2.5-4.9)
[2020-10-19] MEDS: VALSARTAN 160 MG TABLET PO SCH (10:16)
[2020-10-19] MEDS: amLODIPine BESYLATE 10 MG TABLET (FP) PO SCH (10:16)
[2020-10-19] MEDS: ASPIRIN COATED 81 MG TABLET.EC PO SCH (10:16)
[2020-10-19] MEDS: ENOXAPARIN NA (PORCINE) 40 MG/0.4 ML DISP.SYRIN SQ SCH (10:16)
[2020-10-19] MEDS ORDERED: AZTREONAM 1 GM VIAL (RESTRICTED TO ID) ONE ×2 (11:19→18:04)
[2020-10-19] MEDS ORDERED: DEXTROSE 5%-WATER - 50 ML IVPB ONE ×2 (11:19→18:04)
[2020-10-19] MEDS: AZTREONAM 1 GM in DEXTROSE 5%-WATER - 50 ML IVPB SCH ×2 (11:50→19:42)
[2020-10-19] MEDS ORDERED: PT OWN MED DRAWER 7, Y5N ONE (20:59)
[2020-10-19] MEDS: risperiDONE 1 MG/1 ML ML - 30 ML BOTTLE PO SCH (21:10)
[2020-10-20] MEDS ORDERED: AZTREONAM 1 GM VIAL (RESTRICTED TO ID) ONE ×3 (01:25→17:54)
[2020-10-20] MEDS ORDERED: DEXTROSE 5%-WATER - 50 ML IVPB ONE ×3 (01:25→17:55)
[2020-10-20] MEDS: AZTREONAM 1 GM in DEXTROSE 5%-WATER - 50 ML IVPB SCH ×3 (01:31→17:57)
[2020-10-20] MEDS: VANCOMYCIN 1 GRAM (PRE-DOCKED) 1,000 MG/250 ML BAG IVPB SCH ×2 (02:07→12:39)
[2020-10-20] MEDS: ACETAMINOPHEN 325 MG TABLET (FP) PO PRN ×3 (02:50→21:38)
[2020-10-20] MEDS: INSULIN SLIDING SCALE (NOVOLOG) 1 VIAL SQ SCH ×4 (06:52→21:28)
[2020-10-20 09:02] LABS: BASO % 0.6 % (0-2.0); EOS % 4.6 % (0-4.5); HEMATOCRIT 36.7 % (32.4-45.2); HEMOGLOBIN 12.6 GM/dL (10.7-15.3); MCH 30.3 pg (25.7-33.7); MCHC 34.3 g/dl (32.0-36.0); MEAN CELL VOLUME 88.2 fl (80-96); MEAN PLT VOLUME 9.4 fl (7.5-11.1); NEUT % 61.8 % (42.8-82.8); PLATELET COUNT 203 K/MM3 (134-434); RBC 4.16 M/mm3 (3.60-5.2)
[2020-10-20 09:12] LABS: CALCIUM 8.3 mg/dL (8.5-10.1)
[2020-10-20 09:13] LABS: ALBUMIN 2.7 g/dl (3.4-5.0); BLOOD UREA NITROGEN 19.5 mg/dL (7-18)
[2020-10-20 09:17] LABS: BILIRUBIN,TOTAL 0.4 mg/dL (0.2-1); TOT PROT 7.5 g/dl (6.4-8.2)
[2020-10-20] MEDS: ASPIRIN COATED 81 MG TABLET.EC PO SCH (09:41)
[2020-10-20] MEDS: amLODIPine BESYLATE 10 MG TABLET (FP) PO SCH (09:41)
[2020-10-20] MEDS: ENOXAPARIN NA (PORCINE) 40 MG/0.4 ML DISP.SYRIN SQ SCH (09:41)
[2020-10-20] MEDS: VALSARTAN 160 MG TABLET PO SCH (09:42)
[2020-10-20] MEDS ORDERED: PT OWN MED DRAWER 7, Y5N ONE (12:32)
[2020-10-20] MEDS: risperiDONE 1 MG/1 ML ML - 30 ML BOTTLE PO SCH (21:28)
[2020-10-21] MEDS: VANCOMYCIN 1 GRAM (PRE-DOCKED) 1,000 MG/250 ML BAG IVPB SCH ×2 (00:13→11:44)
[2020-10-21] MEDS ORDERED: AZTREONAM 1 GM VIAL (RESTRICTED TO ID) ONE ×3 (01:51→17:48)
[2020-10-21] MEDS ORDERED: DEXTROSE 5%-WATER - 50 ML IVPB ONE ×3 (01:51→17:49)
[2020-10-21] MEDS: AZTREONAM 1 GM in DEXTROSE 5%-WATER - 50 ML IVPB SCH ×3 (02:15→17:54)
[2020-10-21] MEDS: INSULIN SLIDING SCALE (NOVOLOG) 1 VIAL SQ SCH ×4 (07:00→21:45)
[2020-10-21] MEDS: ACETAMINOPHEN 325 MG TABLET (FP) PO PRN ×2 (08:56→22:54)
[2020-10-21 09:28] LABS: BASO % 0.6 % (0-2.0); EOS % 3.8 % (0-4.5); HEMOGLOBIN 12.2 GM/dL (10.7-15.3); LYMPH % 20.7 % (8-40); MCH 30.2 pg (25.7-33.7); MCHC 33.8 g/dl (32.0-36.0); MEAN CELL VOLUME 89.3 fl (80-96); MEAN PLT VOLUME 9.7 fl (7.5-11.1); MONO % 6.3 % (3.8-10.2); NEUT % 68.6 % (42.8-82.8); PLATELET COUNT 217 K/MM3 (134-434); RBC 4.03 M/mm3 (3.60-5.2); RDW 13.9 % (11.6-15.6); WHITE BLOOD COUNT 7.7 K/mm3 (4.0-10.0)
[2020-10-21 09:51] LABS: CALCIUM 8.7 mg/dL (8.5-10.1)
[2020-10-21 09:52] LABS: BLOOD UREA NITROGEN 18.8 mg/dL (7-18)
[2020-10-21 09:55] LABS: CREATININE 0.9 mg/dL (0.55-1.3)
[2020-10-21] MEDS: amLODIPine BESYLATE 10 MG TABLET (FP) PO SCH (10:07)
[2020-10-21] MEDS: ENOXAPARIN NA (PORCINE) 40 MG/0.4 ML DISP.SYRIN SQ SCH (10:07)
[2020-10-21] MEDS: VALSARTAN 160 MG TABLET PO SCH (10:08)
[2020-10-21] MEDS: ASPIRIN COATED 81 MG TABLET.EC PO SCH (10:18)
[2020-10-21] MEDS ORDERED: INSULIN (NOVOLOG) ASPART 100 UNITS/ML 10ML VIAL ONE (11:32)
[2020-10-21] MEDS: FUROSEMIDE 40 MG/4 ML INJECTABLE VIAL IVPUSH SCH (13:42)
[2020-10-21] MEDS ORDERED: PT OWN MED DRAWER 7, Y5N ONE (21:06)
[2020-10-21] MEDS: risperiDONE 1 MG/1 ML ML - 30 ML BOTTLE PO SCH (21:24)
[2020-10-22] MEDS: VANCOMYCIN 1 GRAM (PRE-DOCKED) 1,000 MG/250 ML BAG IVPB SCH ×2 (00:40→11:54)
[2020-10-22] MEDS ORDERED: DEXTROSE 5%-WATER - 50 ML IVPB ONE ×3 (01:17→16:53)
[2020-10-22] MEDS ORDERED: AZTREONAM 1 GM VIAL (RESTRICTED TO ID) ONE ×3 (01:17→16:53)
[2020-10-22] MEDS: AZTREONAM 1 GM in DEXTROSE 5%-WATER - 50 ML IVPB SCH ×3 (01:28→17:17)
[2020-10-22] MEDS: INSULIN SLIDING SCALE (NOVOLOG) 1 VIAL SQ SCH ×4 (06:30→22:38)
[2020-10-22 08:48] LABS: BASO % 0.7 % (0-2.0); EOS % 4.9 % (0-4.5); HEMATOCRIT 36.6 % (32.4-45.2); HEMOGLOBIN 12.3 GM/dL (10.7-15.3); LYMPH % 24.3 % (8-40); MCH 30.2 pg (25.7-33.7); MCHC 33.7 g/dl (32.0-36.0); MEAN CELL VOLUME 89.8 fl (80-96); MEAN PLT VOLUME 9.4 fl (7.5-11.1); MONO % 7.3 % (3.8-10.2); NEUT % 62.8 % (42.8-82.8); PLATELET COUNT 194 K/MM3 (134-434); RBC 4.07 M/mm3 (3.60-5.2); RDW 14.2 % (11.6-15.6); WHITE BLOOD COUNT 6.7 K/mm3 (4.0-10.0)
[2020-10-22 09:03] LABS: CALCIUM 8.4 mg/dL (8.5-10.1)
[2020-10-22 09:04] LABS: BLOOD UREA NITROGEN 19.2 mg/dL (7-18)
[2020-10-22 09:07] LABS: CREATININE 0.9 mg/dL (0.55-1.3)
[2020-10-22] MEDS ORDERED: PT OWN MED DRAWER 7, Y5N ONE (10:14)
[2020-10-22] MEDS: FUROSEMIDE 40 MG/4 ML INJECTABLE VIAL IVPUSH SCH (10:24)
[2020-10-22] MEDS: ENOXAPARIN NA (PORCINE) 40 MG/0.4 ML DISP.SYRIN SQ SCH (10:24)
[2020-10-22] MEDS: VALSARTAN 160 MG TABLET PO SCH (10:25)
[2020-10-22] MEDS: ASPIRIN COATED 81 MG TABLET.EC PO SCH (10:25)
[2020-10-22] MEDS: amLODIPine BESYLATE 10 MG TABLET (FP) PO SCH (10:25)
[2020-10-22] MEDS: risperiDONE 1 MG/1 ML ML - 30 ML BOTTLE PO SCH (22:39)
[2020-10-23] MEDS: VANCOMYCIN 1 GRAM (PRE-DOCKED) 1,000 MG/250 ML BAG IVPB SCH (00:19)
[2020-10-23] MEDS ORDERED: DEXTROSE 5%-WATER - 50 ML IVPB ONE ×3 (01:20→17:23)
[2020-10-23] MEDS ORDERED: AZTREONAM 1 GM VIAL (RESTRICTED TO ID) ONE ×3 (01:20→17:23)
[2020-10-23] MEDS: ACETAMINOPHEN 325 MG TABLET (FP) PO PRN ×2 (02:52→13:45)
[2020-10-23] MEDS: AZTREONAM 1 GM in DEXTROSE 5%-WATER - 50 ML IVPB SCH ×3 (02:52→17:32)
[2020-10-23] MEDS: INSULIN SLIDING SCALE (NOVOLOG) 1 VIAL SQ SCH ×4 (06:03→21:52)
[2020-10-23 08:30] LABS: BASO % 0.6 % (0-2.0); EOS % 4.6 % (0-4.5); HEMATOCRIT 35.7 % (32.4-45.2); HEMOGLOBIN 12.1 GM/dL (10.7-15.3); LYMPH % 25.7 % (8-40); MCH 30.2 pg (25.7-33.7); MEAN PLT VOLUME 9.4 fl (7.5-11.1); MONO % 6.9 % (3.8-10.2); NEUT % 62.2 % (42.8-82.8); PLATELET COUNT 220 K/MM3 (134-434); RBC 4.01 M/mm3 (3.60-5.2); RDW 14.1 % (11.6-15.6); WHITE BLOOD COUNT 7.3 K/mm3 (4.0-10.0)
[2020-10-23 08:40] LABS: BLOOD UREA NITROGEN 19.4 mg/dL (7-18); CALCIUM 8.7 mg/dL (8.5-10.1)
[2020-10-23 08:44] LABS: CREATININE 0.9 mg/dL (0.55-1.3)
[2020-10-23] MEDS: ASPIRIN COATED 81 MG TABLET.EC PO SCH (10:02)
[2020-10-23] MEDS: FUROSEMIDE 40 MG/4 ML INJECTABLE VIAL IVPUSH SCH (10:03)
[2020-10-23] MEDS: VALSARTAN 160 MG TABLET PO SCH (10:04)
[2020-10-23] MEDS: amLODIPine BESYLATE 10 MG TABLET (FP) PO SCH (10:05)
[2020-10-23] MEDS: ENOXAPARIN NA (PORCINE) 40 MG/0.4 ML DISP.SYRIN SQ SCH (10:05)
[2020-10-23] MEDS ORDERED: PT OWN MED DRAWER 7, Y5N ONE ×2 (11:55→20:59)
[2020-10-23] MEDS: risperiDONE 1 MG/1 ML ML - 30 ML BOTTLE PO SCH (21:49)
[2020-10-24] MEDS: VANCOMYCIN 1 GRAM (PRE-DOCKED) 1 GM/200 ML BAG IVPB SCH (01:16)
[2020-10-24] MEDS: ACETAMINOPHEN 325 MG TABLET (FP) PO PRN ×2 (01:27→10:18)
[2020-10-24] MEDS ORDERED: DEXTROSE 5%-WATER - 50 ML IVPB ONE ×3 (02:04→17:01)
[2020-10-24] MEDS ORDERED: AZTREONAM 1 GM VIAL (RESTRICTED TO ID) ONE ×3 (02:04→17:00)
[2020-10-24] MEDS: AZTREONAM 1 GM in DEXTROSE 5%-WATER - 50 ML IVPB SCH ×3 (02:28→17:05)
[2020-10-24] MEDS: INSULIN SLIDING SCALE (NOVOLOG) 1 VIAL SQ SCH ×4 (06:02→21:28)
[2020-10-24 08:45] LABS: CALCIUM 8.7 mg/dL (8.5-10.1)
[2020-10-24 08:46] LABS: BLOOD UREA NITROGEN 20.4 mg/dL (7-18)
[2020-10-24 08:48] LABS: CREATININE 0.8 mg/dL (0.55-1.3)
[2020-10-24] MEDS: ENOXAPARIN NA (PORCINE) 40 MG/0.4 ML DISP.SYRIN SQ SCH (09:14)
[2020-10-24] MEDS: VALSARTAN 160 MG TABLET PO SCH (09:14)
[2020-10-24] MEDS: ASPIRIN COATED 81 MG TABLET.EC PO SCH (09:16)
[2020-10-24] MEDS: risperiDONE 1 MG/1 ML ML - 30 ML BOTTLE PO SCH (21:50)
[2020-10-25] MEDS: ACETAMINOPHEN 325 MG TABLET (FP) PO PRN ×3 (00:20→22:21)
[2020-10-25] MEDS: VANCOMYCIN 1 GRAM (PRE-DOCKED) 1 GM/200 ML BAG IVPB SCH (00:20)
[2020-10-25] MEDS ORDERED: AZTREONAM 1 GM VIAL (RESTRICTED TO ID) ONE ×3 (02:21→17:43)
[2020-10-25] MEDS ORDERED: DEXTROSE 5%-WATER - 50 ML IVPB ONE ×3 (02:21→17:43)
[2020-10-25] MEDS: AZTREONAM 1 GM in DEXTROSE 5%-WATER - 50 ML IVPB SCH ×3 (02:55→17:54)
[2020-10-25] MEDS: INSULIN SLIDING SCALE (NOVOLOG) 1 VIAL SQ SCH ×4 (06:35→22:22)
[2020-10-25 08:19] LABS: BASO % 0.7 % (0-2.0); EOS % 3.9 % (0-4.5); HEMATOCRIT 35.1 % (32.4-45.2); HEMOGLOBIN 11.8 GM/dL (10.7-15.3); MCH 29.9 pg (25.7-33.7); MCHC 33.6 g/dl (32.0-36.0); MEAN CELL VOLUME 88.9 fl (80-96); MEAN PLT VOLUME 9.2 fl (7.5-11.1); MONO % 6.7 % (3.8-10.2); NEUT % 66.7 % (42.8-82.8); PLATELET COUNT 209 K/MM3 (134-434); RBC 3.94 M/mm3 (3.60-5.2); RDW 14.1 % (11.6-15.6); WHITE BLOOD COUNT 6.9 K/mm3 (4.0-10.0)
[2020-10-25 08:46] LABS: CALCIUM 8.9 mg/dL (8.5-10.1)
[2020-10-25 08:47] LABS: BLOOD UREA NITROGEN 21.9 mg/dL (7-18)
[2020-10-25 08:50] LABS: CREATININE 0.8 mg/dL (0.55-1.3)
[2020-10-25] MEDS: ENOXAPARIN NA (PORCINE) 40 MG/0.4 ML DISP.SYRIN SQ SCH (10:46)
[2020-10-25] MEDS: VALSARTAN 160 MG TABLET PO SCH (10:52)
[2020-10-25] MEDS: ASPIRIN COATED 81 MG TABLET.EC PO SCH (10:52)
[2020-10-25] MEDS: risperiDONE 1 MG/1 ML ML - 30 ML BOTTLE PO SCH (21:52)
[2020-10-26] MEDS: VANCOMYCIN 1 GRAM (PRE-DOCKED) 1 GM/200 ML BAG IVPB SCH (00:05)
[2020-10-26] MEDS ORDERED: DEXTROSE 5%-WATER - 50 ML IVPB ONE ×3 (00:44→18:11)
[2020-10-26] MEDS ORDERED: AZTREONAM 1 GM VIAL (RESTRICTED TO ID) ONE ×3 (00:44→18:10)
[2020-10-26] MEDS: AZTREONAM 1 GM in DEXTROSE 5%-WATER - 50 ML IVPB SCH ×3 (02:12→18:12)
[2020-10-26] MEDS: INSULIN SLIDING SCALE (NOVOLOG) 1 VIAL SQ SCH ×4 (06:40→22:31)
[2020-10-26] MEDS: VALSARTAN 160 MG TABLET PO SCH (09:12)
[2020-10-26] MEDS: ENOXAPARIN NA (PORCINE) 40 MG/0.4 ML DISP.SYRIN SQ SCH (09:12)
[2020-10-26] MEDS: ASPIRIN COATED 81 MG TABLET.EC PO SCH (09:13)
[2020-10-26] MEDS: risperiDONE 1 MG/1 ML ML - 30 ML BOTTLE PO SCH (22:31)
[2020-10-27] MEDS: VANCOMYCIN 1 GRAM (PRE-DOCKED) 1 GM/200 ML BAG IVPB SCH (01:04)
[2020-10-27] MEDS ORDERED: DEXTROSE 5%-WATER - 50 ML IVPB ONE ×2 (01:14→08:44)
[2020-10-27] MEDS ORDERED: AZTREONAM 1 GM VIAL (RESTRICTED TO ID) ONE ×2 (01:14→08:44)
[2020-10-27] MEDS: ACETAMINOPHEN 325 MG TABLET (FP) PO PRN (01:19)
[2020-10-27] MEDS: AZTREONAM 1 GM in DEXTROSE 5%-WATER - 50 ML IVPB SCH ×2 (03:00→09:51)
[2020-10-27] MEDS: INSULIN SLIDING SCALE (NOVOLOG) 1 VIAL SQ SCH ×2 (06:23→11:05)
[2020-10-27] MEDS: VALSARTAN 160 MG TABLET PO SCH (09:53)
[2020-10-27] MEDS: ENOXAPARIN NA (PORCINE) 40 MG/0.4 ML DISP.SYRIN SQ SCH ×2 (09:53→09:56)
[2020-10-27] MEDS: ASPIRIN COATED 81 MG TABLET.EC PO SCH (09:53)
[2020-10-27 14:30] VITALS: BP 125/82; PULSE 100; TEMP 99.1
== END 2020-10-27 15:00 | DRG 603 ==
LOC: JER 15:22 → JERBED 19:32 → J6S 23:38
PROVIDERS: ADMIT Internal Medicine; ATTEND Internal Medicine
DX: L03.116 Cellulitis of left lower limb (principal); Z68.43 Body mass index [BMI] 50.0-59.9, adult; I50.32 Chronic diastolic (congestive) heart failure; E87.3 Alkalosis; E11.51 Type 2 diabetes mellitus with diabetic peripheral angiopathy without gangrene; I11.0 Hypertensive heart disease with heart failure; I50.9 Heart failure, unspecified; E66.01 Morbid (severe) obesity due to excess calories; I27.20 Pulmonary hypertension, unspecified; E88.09 Other disorders of plasma-protein metabolism, not elsewhere classified; I48.0 Paroxysmal atrial fibrillation; J44.9 Chronic obstructive pulmonary disease, unspecified; I87.2 Venous insufficiency (chronic) (peripheral); F25.9 Schizoaffective disorder, unspecified; F29 Unspecified psychosis not due to a substance or known physiological condition; F32.9 Major depressive disorder, single episode, unspecified; Z79.4 Long term (current) use of insulin
CPT/HCPCS: 36415; 71045-TC-FY; 73590-TC-LT-FY; 80048; 80053; 80061; 82962; 83721; 83735; 84100; 85025; 85027; 85610; 85651; 85730; 86140; 86850; 86900; 86901; 87040; 93005; 93010; 99285-25; C9803; G0463-25; G0480; U0003; U0005